=== PATIENT | male | born 1965 | race Hispanic/Latino ===

== ENCOUNTER 2016-11-02 18:56 | Emergency (ER) | payer OTHER ==
[2016-11-02] MEDS ORDERED: ONDANSETRON 4MG/2ML VIAL (J2405) As Ordered ONE (20:28)
[2016-11-02 20:31] LABS: VENOUS O2 SATURATION 65.8 % (60.0-80.0); VENOUS STANDARD HCO3 27.8 MEQ/L; VENOUS TOTAL CO2 32.5 MEQ/L (24.0-28.0)
[2016-11-02 20:33] LABS: BASO % 0.2 % (0.0-1.0); EOS # 0.2 K/mm3 (0.0-0.50); EOS % 2.2 % (0.0-3.0); LARGE UNSTAINED CELL # 0.1 K/mm3 (0.0-0.4); LARGE UNSTAINED CELL % 0.8 % (0.0-4.0); LYMPH # 0.6 K/mm3 (1.5-4.5); LYMPH % 5.9 % (24.0-44.0); MEAN CORPUSCULAR HEMOGLOBIN 31.6 pg (27.0-33.0); MEAN CORPUSCULAR HGB CONC 35.3 g/dl (32.0-36.5); MEAN CORPUSCULAR VOLUME 89.6 fl (80.0-96.0); MONO # 0.3 K/mm3 (0.0-0.8); MONO % 3.3 % (0.0-5.0); NEUTROPHILS # 8.5 K/mm3 (1.8-7.7); NEUTROPHILS % 87.5 % (36.0-66.0); PLATELET COUNT, AUTOMATED 135 k/mm3 (150-450); RED CELL DISTRIBUTION WIDTH 12.3 % (11.5-14.5); WHITE BLOOD COUNT 9.7 K/mm3 (4.0-10.0)
[2016-11-02 20:54] LABS: ALBUMIN 4.1 GM/DL (3.2-5.2); ALBUMIN/GLOBULIN RATIO 0.98 (1.00-1.93); BILIRUBIN,DIRECT 0.2 MG/DL (0.0-0.2); BILIRUBIN,TOTAL 0.7 MG/DL (0.2-1.0); CALCIUM LEVEL 9.9 MG/DL (8.5-10.1); CREATININE FOR GFR 1.53 MG/DL (0.70-1.30); GLOMERULAR FILTRATION RATE 51.5 (>56); POTASSIUM SERUM 4.4 MEQ/L (3.5-5.1); TOTAL PROTEIN 8.3 GM/DL (6.4-8.2)
[2016-11-02] MEDS ORDERED: HumuLIN R (REGULAR) INSULIN (NovoLIN R) **100U/ML** PER UNIT As Ordered ONE (21:55)
--- NOTE | 2016-11-02 22:23 | EDDOCDS ---
Physician Documentation [facility] Name: Tulio Villegas Age: 51 yrs Sex: Male : 1965 Arrival Date: 11/02/2016 Time: 18:56 Bed I2 / M2 Private MD: Fernando Min R. Disposition: 11/02/16 22:04 Discharged to Home/Self Care. Impression: Hyperglycemia, unspecified, Nausea and vomiting. - Condition is Stable. - Discharge Instructions: Hyperglycemia, Nausea and Vomiting, [id number]. - Prescriptions for Metformin 500 mg Oral Tablet - take 1 tablet by ORAL route once daily with morning and evening meals; 20 tablet. Lisinopril 20 mg Oral Tablet - take 1 tablet by ORAL route once daily; 20 tablet. Carvedilol 12.5 mg Oral Tablet - take 2 tablet by ORAL route 2 times per day with food; 45 tablet. ZOFRAN ODT 4 mg - dissolve 1 tablet by ORAL route 4 times per day As needed do not chew, do not swallow whole; 10 tablet. - Medication Reconciliation, Local Pharmacy Hours form. - Follow up: Fernando Min; When: Call to arrange an appointment; Reason: Continuance of care. - Problem is new. - Symptoms have improved. Historical: - Allergies: No known drug Allergies; - Home Meds: 1. metformin 500 mg Oral tr24 1 tab twice a day pt reports he ran out of his meds. (Last dose: Unknown) 2. carvedilol 25 mg oral tab 1 tab 2 times per day pt reports he ran out of his meds. (Last dose: Unknown) 3. lisinopril 20 mg oral tab 1 tab once daily pt reports he ran out of his meds. (Last dose: 11/01/2016) - PMHx: Diabetes - NIDDM: controlled; Hypercholesterolemia; Hypertension; - PSHx: none; - Social history: Smoking status: Patient states was never smoker of tobacco. Preferred Language: Pashto, The patient speaks a little Cymro. - Family history: Not pertinent. - : The pt / caregiver states he / she is not on anticoagulants. Home medication list is obtained from the patient. - Exposure Risk Screening:: None identified. Vital Signs: 11/02 18:58 BP 169 / 116; Pulse 114; Resp 18 S; Temp 98.4(O); Pulse Ox 97% on R/A; Weight 81.65 kg gr2 / 180.01 lbs (R); Height 5 ft. 8 in. (172.72 cm) (R); Pain 5/10; 19:35 BP 144 / 106 RA Sitting (man/reg); mb9 22:21 BP 135 / 99; Pulse 99; Resp 16; Temp 98.7; Pulse Ox 99% ; Pain 0/10; ko2 18:58 Body Mass Index 27.37 (81.65 kg, 172.72 cm) gr2 MDM: 19:28 Fingerstick Blood Sugar Ordered. EDMS 20:22 IV Saline Lock ordered. fg 20:22 Undress patient appropriately for examination ordered. fg 20:22 NS 0.9% 1000 ml IV at bolus once ordered. fg 20:22 Ondansetron 4 mg IVP once ordered. fg 20:22 Basic Metabolic Profile Ordered. EDMS 20:22 CBC with Diff Ordered. EDMS 20:22 Lipase Ordered. EDMS 20:22 Liver Profile Ordered. EDMS 20:23 NOTHING BY MOUTH+DIET ordered. EDMS 20:24 Venous Blood Gas (large pea green tube on ice) Ordered. EDMS 21:26 Insulin Regular Human 5 units IVP once ordered. fg 21:26 Misc. Nursing Order ordered. fg Point of Care Testing: Blood Glucose: 19:12 Blood Glucose: 306 mg/dL; mb9 Ranges: Administered Medications: 20:36 Drug: NS 0.9% 1000 ml [sodium chloride 0.9 % injection solution] Route: IV; Rate: dsf bolus; Site: right antecubital; 20:36 Drug: Ondansetron 4 mg [ondansetron HCl 2 mg/mL intravenous solution (2 mL)] Route: dsf IVP; Site: right antecubital; 22:02 Drug: Insulin Regular Human 5 units [insulin regular human 100 unit/mL injection ko2 solution (0.05 mL)] {Co-Signature: rw1 (Gerardo Morales LPN).} Route: IVP; Site: right antecubital; Signatures: Dispatcher [employer] EDMS Susana Bellamy RN RN ko2 Tez Villar RN RN mb9 Erika Ferrell MD MD fg Fuller, Desiree RN dsf Gerardo Morales LPN rwVinny The chart was reviewed and I authenticate all verbal orders and agree with the evaluation and treatment provided.Corrections: (The following items were deleted from the chart) 21:51 19:16 Home Meds: carvedilol 3.125 mg oral tab 1 tab 2 times per day; pt reports he ran ko2 out of his meds. (Last Dose: Unknown); mb9 21:51 19:16 Home Meds: lisinopril 40 mg Oral tab 1 tab once daily; pt reports he ran out of ko2 his meds. (Last Dose: 11/01/2016); mb9 MTDD
--- NOTE | 2016-11-02 22:23 | EDDOCDS ---
Nurse's Notes [facility] Name: Tulio Villegas Age: 51 yrs Sex: Male : 1965 Arrival Date: 11/02/2016 Time: 18:56 Bed I2 / M2 Private MD: Fernando Min R. Diagnosis: Hyperglycemia, unspecified;Nausea and vomiting Presentation: 11/02 19:12 Presenting complaint: Patient states: "I started throwing up and I got pain in my body mb9 and now I'm short of breath". pt reports he started throwing up since 1 pm today. Adult Sepsis Screening: The patient does not have new or worsening altered mentation. Patient's respiratory rate is less than 22. Systolic blood pressure is greater than 100. Patient has a qSOFA score of 0- Negative Sepsis Screen. Suicide/Homicide risk assessment- the patient denies having any suicidal and/or homicidal ideations and does not present with any other emotional, behavioral or mental health complaints. Status: Patient is not a protective services case worker or dependent. Transition of care: patient was not received from another setting of care. 19:12 Acuity: BILLY Level 3 mb9 19:12 Method Of Arrival: Walkin/Carried/Asstd mb9 Triage Assessment: 19:16 General: Appears uncomfortable, Behavior is restless. Pain:. HIV screening NA for this mb9 visit Offered previously. The patient is triaged at the bedside. See Assessment in Nurses Notes section of ED record. Respiratory: Airway is patent Respiratory effort is even, unlabored, Breath sounds are clear bilaterally. GI: Reports diarrhea, nausea, vomiting. Historical: - Allergies: No known drug Allergies; - Home Meds: 1. metformin 500 mg Oral tr24 1 tab twice a day pt reports he ran out of his meds. (Last dose: Unknown) 2. carvedilol 25 mg oral tab 1 tab 2 times per day pt reports he ran out of his meds. (Last dose: Unknown) 3. lisinopril 20 mg oral tab 1 tab once daily pt reports he ran out of his meds. (Last dose: 11/01/2016) - PMHx: Diabetes - NIDDM: controlled; Hypercholesterolemia; Hypertension; - PSHx: none; - Social history: Smoking status: Patient states was never smoker of tobacco. Preferred Language: Sri Lankan, The patient speaks a little Cape Verdean. - Family history: Not pertinent. - : The pt / caregiver states he / she is not on anticoagulants. Home medication list is obtained from the patient. - Exposure Risk Screening:: None identified. Screenin:15 Screening information is obtained from the patient. Fall risk: No risks identified. ko2 Assistance ADL's: requires no assistance with activities of daily living. Abuse/DV Screen: The patient / caregiver reports he/she is: not in a situation that causes fear, pain or injury. Nutritional screening: No deficits noted. Advance Directives: Currently, there is no health care proxy. There is no active DNR order. There is no living will. There is no Power of Gore Cutter. home support is adequate. Assessment: 20:25 General: Appears ill, Behavior is appropriate for age, cooperative. Pain: Location: dsf abdomen. Neurological: Level of Consciousness is awake, alert. Cardiovascular: Capillary refill < 3 seconds. Respiratory: Airway is patent Respiratory effort is even, unlabored, Respiratory pattern is regular, symmetrical. GI: Abdomen is non- distended Reports nausea, vomiting. Derm: Skin is dry, Skin is normal, Skin temperature is warm. 21:14 General: Appears in no apparent distress, Behavior is cooperative. Pain: Location: ko2 abdomen. Neurological: Level of Consciousness is awake, alert. Respiratory: Airway is patent Respiratory effort is even, unlabored, Respiratory pattern is regular, symmetrical. Derm: No deficits noted. 22:02 General: Appears in no apparent distress, Behavior is appropriate for age, cooperative. ko2 Neurological: Level of Consciousness is awake, alert. Respiratory: Airway is patent Respiratory effort is even, unlabored, Respiratory pattern is regular, symmetrical, Sputum is. Derm: Skin is normal. 22:21 GI: Abd is soft and non tender. ko2 Vital Signs: 18:58 BP 169 / 116; Pulse 114; Resp 18 S; Temp 98.4(O); Pulse Ox 97% on R/A; Weight 81.65 kg gr2 (R); Height 5 ft. 8 in. (172.72 cm) (R); Pain 5/10; 19:35 BP 144 / 106 RA Sitting (man/reg); mb9 22:21 BP 135 / 99; Pulse 99; Resp 16; Temp 98.7; Pulse Ox 99% ; Pain 0/10; ko2 18:58 Body Mass Index 27.37 (81.65 kg, 172.72 cm) gr2 Vitals: 18:58 Log In Time: November 02, 2016 at 18:58. gr2 ED Course: 18:57 Patient visited by Darrius Tay. gr2 18:57 Patient moved to Waiting gr2 18:58 Fernando Min is Private Physician. gr2 19:00 Patient visited by Darrius Tay. gr2 19:00 Patient moved to Pre RCE gr2 19:14 Triage Initiated mb9 19:35 Patient moved to I2 / M2 mb9 20:04 Erika Ferrell MD is Attending Physician. fg 20:21 Patient visited by Erika Ferrell MD. fg 20:23 Basic Metabolic Profile Sent. dsf 20:23 CBC with Diff Sent. dsf 20:23 Lipase Sent. dsf 20:23 Liver Profile Sent. dsf 20:26 Patient visited by Yi Jasmine RN. dsf 20:26 Inserted saline lock: 18 gauge in right antecubital area The patient tolerated the dsf procedure well. 21:15 Patient visited by Susana Bellamy,DHARA. ko2 21:15 The patient / caregiver is instructed regarding the plan of care and ED course. ko2 21:36 Diet: Patient given water. Tolerated well. ajs 22:03 Fernando Min is Referral Physician. fg 22:21 Discontinued lock intact, bleeding controlled, pressure dressing applied, No ko2 redness/swelling at site. No procedures done that require assistance. Administered Medications: 20:36 Drug: NS 0.9% 1000 ml [sodium chloride 0.9 % injection solution] Route: IV; Rate: dsf bolus; Site: right antecubital; 20:36 Drug: Ondansetron 4 mg [ondansetron HCl 2 mg/mL intravenous solution (2 mL)] Route: dsf IVP; Site: right antecubital; 22:02 Drug: Insulin Regular Human 5 units [insulin regular human 100 unit/mL injection ko2 solution (0.05 mL)] {Co-Signature: rw1 (Gerardo Morales LPN).} Route: IVP; Site: right antecubital; Point of Care Testing: Blood Glucose: 19:12 Blood Glucose: 306 mg/dL; mb9 Ranges: Order Results: Lab Order: Fingerstick Blood Sugar; [facility]' 11/02/16 19:19 Test: BEDSIDE GLUCOSE; Value: 306; Range: 70-105; Abnormal: Above high normal; Units: MG/DL; Status: F Lab Order: Basic Metabolic Profile; [facility]' 11/02/16 20:21 Test: GLUCOSE, FASTING; Value: 310; Range: 70-105; Abnormal: Above high normal; Units: MG/DL; Status: F Test: BLOOD UREA NITROGEN; Value: 16; Range: 7-18; Units: MG/DL; Status: F Test: CREATININE FOR GFR; Value: 1.53; Range: 0.70-1.30; Abnormal: Above high normal; Units: MG/DL; Status: F Test: GLOMERULAR FILTRATION RATE; Value: 51.5; Range: >56; Abnormal: Below low normal; Status: F Test: SODIUM LEVEL; Value: 140; Range: 136-145; Units: MEQ/L; Status: F Test: POTASSIUM SERUM; Value: 4.4; Range: 3.5-5.1; Units: MEQ/L; Status: F Test: CHLORIDE LEVEL; Value: 101; Range: 98-107; Units: MEQ/L; Status: F Test: CARBON DIOXIDE LEVEL; Value: 28; Range: 21-32; Units: MEQ/L; Status: F Test: ANION GAP; Value: 11; Range: 8-16; Units: MEQ/L; Status: F Test: CALCIUM LEVEL; Value: 9.9; Range: 8.5-10.1; Units: MG/DL; Status: F Test Note: ; Units are mL/min/1.73 m2 Chronic Kidney Disease Staging per NKF: Stage I & II GFR >=60 Normal to Mildly Decreased Stage III GFR 30-59 Moderately Decreased Stage IV GFR 15-29 Severely Decreased Stage V GFR <15 Very Little GFR Left ESRD GFR <15 on POCKET STITCHER Lab Order: CBC with Diff; [facility] 11/02/16 20:21 Test: WHITE BLOOD COUNT; Value: 9.7; Range: 4.0-10.0; Units: K/mm3; Status: F Test: RED BLOOD COUNT; Value: 5.92; Range: 4.30-6.10; Units: M/mm3; Status: F Test: HEMOGLOBIN; Value: 18.7; Range: 14.0-18.0; Abnormal: Above high normal; Units: g/dl; Status: F Test: HEMATOCRIT; Value: 53.1; Range: 42.0-52.0; Abnormal: Above high normal; Units: %; Status: F Test: MEAN CORPUSCULAR VOLUME; Value: 89.6; Range: 80.0-96.0; Units: fl; Status: F Test: MEAN CORPUSCULAR HEMOGLOBIN; Value: 31.6; Range: 27.0-33.0; Units: pg; Status: F Test: MEAN CORPUSCULAR HGB CONC; Value: 35.3; Range: 32.0-36.5; Units: g/dl; Status: F Test: RED CELL DISTRIBUTION WIDTH; Value: 12.3; Range: 11.5-14.5; Units: %; Status: F Test: PLATELET COUNT, AUTOMATED; Value: 135; Range: 150-450; Abnormal: Below low normal; Units: k/mm3; Status: F Test: NEUTROPHILS %; Value: 87.5; Range: 36.0-66.0; Abnormal: Above high normal; Units: %; Status: F Test: LYMPH %; Value: 5.9; Range: 24.0-44.0; Abnormal: Below low normal; Units: %; Status: F Test: MONO %; Value: 3.3; Range: 0.0-5.0; Units: %; Status: F Test: EOS %; Value: 2.2; Range: 0.0-3.0; Units: %; Status: F Test: BASO %; Value: 0.2; Range: 0.0-1.0; Units: %; Status: F Test: LARGE UNSTAINED CELL %; Value: 0.8; Range: 0.0-4.0; Units: %; Status: F Test: NEUTROPHILS #; Value: 8.5; Range: 1.8-7.7; Abnormal: Above high normal; Units: K/mm3; Status: F Test: LYMPH #; Value: 0.6; Range: 1.5-4.5; Abnormal: Below low normal; Units: K/mm3; Status: F Test: MONO #; Value: 0.3; Range: 0.0-0.8; Units: K/mm3; Status: F Test: EOS #; Value: 0.2; Range: 0.0-0.50; Units: K/mm3; Status: F Test: BASO #; Value: 0.0; Range: 0.0-0.2; Units: K/mm3; Status: F Test: LARGE UNSTAINED CELL #; Value: 0.1; Range: 0.0-0.4; Units: K/mm3; Status: F Lab Order: Lipase; [facility] 11/02/16 20: Test: LIPASE; Value: 524; Range: 73-393; Abnormal: Above high normal; Units: U/L; Status: F Lab Order: Liver Profile; [facility] 11/02/16 20: Test: AST/SGOT; Value: 107; Range: 15-37; Abnormal: Above high normal; Units: U/L; Status: F Test: ALT/SGPT; Value: 98; Range: 12-78; Abnormal: Above high normal; Units: U/L; Status: F Test: ALKALINE PHOSPHATASE; Value: 239; Range: 45-117; Abnormal: Above high normal; Units: U/L; Status: F Test: BILIRUBIN,TOTAL; Value: 0.7; Range: 0.2-1.0; Units: MG/DL; Status: F Test: BILIRUBIN,DIRECT; Value: 0.2; Range: 0.0-0.2; Units: MG/DL; Status: F Test: TOTAL PROTEIN; Value: 8.3; Range: 6.4-8.2; Abnormal: Above high normal; Units: GM/DL; Status: F Test: ALBUMIN; Value: 4.1; Range: 3.2-5.2; Units: GM/DL; Status: F Test: ALBUMIN/GLOBULIN RATIO; Value: 0.98; Range: 1.00-1.93; Abnormal: Below low normal; Status: F Lab Order: Venous Blood Gas (large pea green tube on ice); [facility] 11/02/16 20: Test: VENOUS PH; Value: 7.419; Range: 7.330-7.430; Units: UNITS; Status: F Test: VENOUS PARTIAL PRESSURE CO2; Value: 49.0; Range: 38.0-50.0; Units: mmHg; Status: F Test: VENOUS PARTIAL PRESSURE O2; Value: 33.0; Range: 30.0-50.0; Units: mmHg; Status: F Test: VENOUS TOTAL CO2; Value: 32.5; Range: 24.0-28.0; Abnormal: Above high normal; Units: MEQ/L; Status: F Test: VENOUS HCO3; Value: 31.0; Range: 23.0-27.0; Abnormal: Above high normal; Units: MEQ/L; Status: F Test: VENOUS BASE EXCESS; Value: 5.0; Range: -2.0-2.0; Abnormal: Above high normal; Status: F Test: VENOUS STANDARD HCO3; Value: 27.8; Units: MEQ/L; Status: F Test: VENOUS O2 SATURATION; Value: 65.8; Range: 60.0-80.0; Units: %; Status: F Outcome: 22:04 Discharge ordered by Provider. fg 22:21 Discharge Assessment: Patient awake, alert and oriented x 3. No cognitive and/or ko2 functional deficits noted. Patient verbalized understanding of disposition instructions. patient administered narcotics - no. The following High Risk Discharge criteria are identified: None. Discharged to home ambulatory, with family. Condition: stable. Discharge instructions given to patient, Instructed on discharge instructions, follow up and referral plans. medication usage, Demonstrated understanding of instructions, medications, Pt was receptive of discharge instructions/ teaching. Prescriptions given X 4. No special radiology studies were completed. Property :Personal belongings accompany Pt. 22:22 Patient left the ED. ko2 Signatures: Yi Jasmine RN RN dsf Slate, Amanda ajs Raymond, [place] 2 Susana Bellamy RN RN ko2 Tez Villar RN RN yara9 Erika Ferrell MD MD fg Gerardo Morales LPN rw1 Corrections: (The following items were deleted from the chart) 21:51 19:16 Home Meds: carvedilol 3.125 mg oral tab 1 tab 2 times per day; pt reports he ran ko2 out of his meds. (Last Dose: Unknown); vicente 21:51 19:16 Home Meds: lisinopril 40 mg Oral tab 1 tab once daily; pt reports he ran out of ko2 his meds. (Last Dose: 11/01/2016); vicente MTDD
--- NOTE | 2016-11-04 23:23 | EDDOCDS ---
Physician Documentation [facility] Name: Tulio Villegas Age: 51 yrs Sex: Male : 1965 Arrival Date: 11/02/2016 Time: 18:56 Bed I2 / M2 Private MD: Fernando Min R. Disposition: 11/02/16 22:04 Discharged to Home/Self Care. Impression: Hyperglycemia, unspecified, Nausea and vomiting. - Condition is Stable. - Discharge Instructions: Hyperglycemia, Nausea and Vomiting, [id number]. - Prescriptions for Metformin 500 mg Oral Tablet - take 1 tablet by ORAL route once daily with morning and evening meals; 20 tablet. Lisinopril 20 mg Oral Tablet - take 1 tablet by ORAL route once daily; 20 tablet. Carvedilol 12.5 mg Oral Tablet - take 2 tablet by ORAL route 2 times per day with food; 45 tablet. ZOFRAN ODT 4 mg - dissolve 1 tablet by ORAL route 4 times per day As needed do not chew, do not swallow whole; 10 tablet. - Medication Reconciliation, Local Pharmacy Hours form. - Follow up: Fernando Min; When: Call to arrange an appointment; Reason: Continuance of care. - Problem is new. - Symptoms have improved. Historical: - Allergies: No known drug Allergies; - Home Meds: 1. metformin 500 mg Oral tr24 1 tab twice a day pt reports he ran out of his meds. (Last dose: Unknown) 2. carvedilol 25 mg oral tab 1 tab 2 times per day pt reports he ran out of his meds. (Last dose: Unknown) 3. lisinopril 20 mg oral tab 1 tab once daily pt reports he ran out of his meds. (Last dose: 11/01/2016) - PMHx: Diabetes - NIDDM: controlled; Hypercholesterolemia; Hypertension; - PSHx: none; - Social history: Smoking status: Patient states was never smoker of tobacco. Preferred Language: Greenlandic, The patient speaks a little Kuwaiti. - Family history: Not pertinent. - : The pt / caregiver states he / she is not on anticoagulants. Home medication list is obtained from the patient. - Exposure Risk Screening:: None identified. Vital Signs: 11/02 18:58 BP 169 / 116; Pulse 114; Resp 18 S; Temp 98.4(O); Pulse Ox 97% on R/A; Weight 81.65 kg gr2 / 180.01 lbs (R); Height 5 ft. 8 in. (172.72 cm) (R); Pain 5/10; 19:35 BP 144 / 106 RA Sitting (man/reg); mb9 22:21 BP 135 / 99; Pulse 99; Resp 16; Temp 98.7; Pulse Ox 99% ; Pain 0/10; ko2 18:58 Body Mass Index 27.37 (81.65 kg, 172.72 cm) gr2 MDM: 19:28 Fingerstick Blood Sugar Ordered. EDMS 20:22 IV Saline Lock ordered. fg 20:22 Undress patient appropriately for examination ordered. fg 20:22 NS 0.9% 1000 ml IV at bolus once ordered. fg 20:22 Ondansetron 4 mg IVP once ordered. fg 20:22 Basic Metabolic Profile Ordered. EDMS 20:22 CBC with Diff Ordered. EDMS 20:22 Lipase Ordered. EDMS 20:22 Liver Profile Ordered. EDMS 20:23 NOTHING BY MOUTH+DIET ordered. EDMS 20:24 Venous Blood Gas (large pea green tube on ice) Ordered. EDMS 21:26 Insulin Regular Human 5 units IVP once ordered. fg 21:26 Misc. Nursing Order ordered. fg 11/03 11:22 T-Sheet-- Draft Copy was scanned into [employer] and attached to record. Point of Care Testing: Blood Glucose: 11/02 19:12 Blood Glucose: 306 mg/dL; mb9 Ranges: Administered Medications: 20:36 Drug: NS 0.9% 1000 ml [sodium chloride 0.9 % injection solution] Route: IV; Rate: dsf bolus; Site: right antecubital; 20:36 Drug: Ondansetron 4 mg [ondansetron HCl 2 mg/mL intravenous solution (2 mL)] Route: dsf IVP; Site: right antecubital; 22:02 Drug: Insulin Regular Human 5 units [insulin regular human 100 unit/mL injection ko2 solution (0.05 mL)] {Co-Signature: rw1 (Gerardo Morales [employer]).} Route: IVP; Site: right antecubital; Signatures: Dispatcher [employer] EDMS Michelle Rocha, Reg Reg Susana Bellamy RN RN ko2 Tez Villar RN RN mb9 Erika Ferrell MD MD fg Fuller, Desiree RN dsf Gerardo Morales LPN rw1 The chart was reviewed and I authenticate all verbal orders and agree with the evaluation and treatment provided.Corrections: (The following items were deleted from the chart) 21:51 19:16 Home Meds: carvedilol 3.125 mg oral tab 1 tab 2 times per day; pt reports he ran ko2 out of his meds. (Last Dose: Unknown); mb9 21:51 19:16 Home Meds: lisinopril 40 mg Oral tab 1 tab once daily; pt reports he ran out of ko2 his meds. (Last Dose: 11/01/2016); mb9 Attachments: 11/03 11:22 T-Sheet-- Draft Copy gb Chart Complete MTDD
--- NOTE | 2016-11-04 23:23 | EDDOCDS ---
Nurse's Notes [facility] Name: Tulio Villegas Age: 51 yrs Sex: Male : 1965 Arrival Date: 11/02/2016 Time: 18:56 Bed I2 / M2 Private MD: Fernando Min R. Diagnosis: Hyperglycemia, unspecified;Nausea and vomiting Presentation: 11/02 19:12 Presenting complaint: Patient states: "I started throwing up and I got pain in my body mb9 and now I'm short of breath". pt reports he started throwing up since 1 pm today. Adult Sepsis Screening: The patient does not have new or worsening altered mentation. Patient's respiratory rate is less than 22. Systolic blood pressure is greater than 100. Patient has a qSOFA score of 0- Negative Sepsis Screen. Suicide/Homicide risk assessment- the patient denies having any suicidal and/or homicidal ideations and does not present with any other emotional, behavioral or mental health complaints. Status: Patient is not a support services coordinator or dependent. Transition of care: patient was not received from another setting of care. 19:12 Acuity: BILLY Level 3 mb9 19:12 Method Of Arrival: Walkin/Carried/Asstd mb9 Triage Assessment: 19:16 General: Appears uncomfortable, Behavior is restless. Pain:. HIV screening NA for this mb9 visit Offered previously. The patient is triaged at the bedside. See Assessment in Nurses Notes section of ED record. Respiratory: Airway is patent Respiratory effort is even, unlabored, Breath sounds are clear bilaterally. GI: Reports diarrhea, nausea, vomiting. Historical: - Allergies: No known drug Allergies; - Home Meds: 1. metformin 500 mg Oral tr24 1 tab twice a day pt reports he ran out of his meds. (Last dose: Unknown) 2. carvedilol 25 mg oral tab 1 tab 2 times per day pt reports he ran out of his meds. (Last dose: Unknown) 3. lisinopril 20 mg oral tab 1 tab once daily pt reports he ran out of his meds. (Last dose: 11/01/2016) - PMHx: Diabetes - NIDDM: controlled; Hypercholesterolemia; Hypertension; - PSHx: none; - Social history: Smoking status: Patient states was never smoker of tobacco. Preferred Language: Norwegian, The patient speaks a little Puerto Rican. - Family history: Not pertinent. - : The pt / caregiver states he / she is not on anticoagulants. Home medication list is obtained from the patient. - Exposure Risk Screening:: None identified. Screenin:15 Screening information is obtained from the patient. Fall risk: No risks identified. ko2 Assistance ADL's: requires no assistance with activities of daily living. Abuse/DV Screen: The patient / caregiver reports he/she is: not in a situation that causes fear, pain or injury. Nutritional screening: No deficits noted. Advance Directives: Currently, there is no health care proxy. There is no active DNR order. There is no living will. There is no Power of Job Counselor. home support is adequate. Assessment: 20:25 General: Appears ill, Behavior is appropriate for age, cooperative. Pain: Location: dsf abdomen. Neurological: Level of Consciousness is awake, alert. Cardiovascular: Capillary refill < 3 seconds. Respiratory: Airway is patent Respiratory effort is even, unlabored, Respiratory pattern is regular, symmetrical. GI: Abdomen is non- distended Reports nausea, vomiting. Derm: Skin is dry, Skin is normal, Skin temperature is warm. 21:14 General: Appears in no apparent distress, Behavior is cooperative. Pain: Location: ko2 abdomen. Neurological: Level of Consciousness is awake, alert. Respiratory: Airway is patent Respiratory effort is even, unlabored, Respiratory pattern is regular, symmetrical. Derm: No deficits noted. 22:02 General: Appears in no apparent distress, Behavior is appropriate for age, cooperative. ko2 Neurological: Level of Consciousness is awake, alert. Respiratory: Airway is patent Respiratory effort is even, unlabored, Respiratory pattern is regular, symmetrical, Sputum is. Derm: Skin is normal. 22:21 GI: Abd is soft and non tender. ko2 Vital Signs: 18:58 BP 169 / 116; Pulse 114; Resp 18 S; Temp 98.4(O); Pulse Ox 97% on R/A; Weight 81.65 kg gr2 (R); Height 5 ft. 8 in. (172.72 cm) (R); Pain 5/10; 19:35 BP 144 / 106 RA Sitting (man/reg); mb9 22:21 BP 135 / 99; Pulse 99; Resp 16; Temp 98.7; Pulse Ox 99% ; Pain 0/10; ko2 18:58 Body Mass Index 27.37 (81.65 kg, 172.72 cm) gr2 Vitals: 18:58 Log In Time: November 02, 2016 at 18:58. gr2 ED Course: 18:57 Patient visited by Darrius Tay. gr2 18:57 Patient moved to Waiting gr2 18:58 Fernando Min is Private Physician. gr2 19:00 Patient visited by Darrius Tay. gr2 19:00 Patient moved to Pre RCE gr2 19:14 Triage Initiated mb9 19:35 Patient moved to I2 / M2 mb9 20:04 Erika Ferrell MD is Attending Physician. fg 20:21 Patient visited by Erika Ferrell MD. fg 20:23 Basic Metabolic Profile Sent. dsf 20:23 CBC with Diff Sent. dsf 20:23 Lipase Sent. dsf 20:23 Liver Profile Sent. dsf 20:26 Patient visited by Yi Jasmine RN. dsf 20:26 Inserted saline lock: 18 gauge in right antecubital area The patient tolerated the dsf procedure well. 21:15 Patient visited by Susana Bellamy,DHARA. ko2 21:15 The patient / caregiver is instructed regarding the plan of care and ED course. ko2 21:36 Diet: Patient given water. Tolerated well. ajs 22:03 Fernando Min is Referral Physician. fg 22:21 Discontinued lock intact, bleeding controlled, pressure dressing applied, No ko2 redness/swelling at site. No procedures done that require assistance. 11/03 11:22 T-Sheet-- Draft Copy was scanned into [employer] and attached to record. gb Administered Medications: 11/02 20:36 Drug: NS 0.9% 1000 ml [sodium chloride 0.9 % injection solution] Route: IV; Rate: dsf bolus; Site: right antecubital; 20:36 Drug: Ondansetron 4 mg [ondansetron HCl 2 mg/mL intravenous solution (2 mL)] Route: dsf IVP; Site: right antecubital; 22:02 Drug: Insulin Regular Human 5 units [insulin regular human 100 unit/mL injection ko2 solution (0.05 mL)] {Co-Signature: rw1 (Gerardo Morales LPN).} Route: IVP; Site: right antecubital; Point of Care Testing: Blood Glucose: 19:12 Blood Glucose: 306 mg/dL; mb9 Ranges: Order Results: Lab Order: Fingerstick Blood Sugar; SPECM 11/02/16 19:19 Test: BEDSIDE GLUCOSE; Value: 306; Range: 70-105; Abnormal: Above high normal; Units: MG/DL; Status: F Lab Order: Basic Metabolic Profile; SPEC'11/02/16 20:21 Test: GLUCOSE, FASTING; Value: 310; Range: 70-105; Abnormal: Above high normal; Units: MG/DL; Status: F Test: BLOOD UREA NITROGEN; Value: 16; Range: 7-18; Units: MG/DL; Status: F Test: CREATININE FOR GFR; Value: 1.53; Range: 0.70-1.30; Abnormal: Above high normal; Units: MG/DL; Status: F Test: GLOMERULAR FILTRATION RATE; Value: 51.5; Range: >56; Abnormal: Below low normal; Status: F Test: SODIUM LEVEL; Value: 140; Range: 136-145; Units: MEQ/L; Status: F Test: POTASSIUM SERUM; Value: 4.4; Range: 3.5-5.1; Units: MEQ/L; Status: F Test: CHLORIDE LEVEL; Value: 101; Range: 98-107; Units: MEQ/L; Status: F Test: CARBON DIOXIDE LEVEL; Value: 28; Range: 21-32; Units: MEQ/L; Status: F Test: ANION GAP; Value: 11; Range: 8-16; Units: MEQ/L; Status: F Test: CALCIUM LEVEL; Value: 9.9; Range: 8.5-10.1; Units: MG/DL; Status: F Test Note: ; Units are mL/min/1.73 m2 Chronic Kidney Disease Staging per NKF: Stage I & II GFR >=60 Normal to Mildly Decreased Stage III GFR 30-59 Moderately Decreased Stage IV GFR 15-29 Severely Decreased Stage V GFR <15 Very Little GFR Left ESRD GFR <[address] AIDE Lab Order: CBC with Diff; SPEC'M 11/02/16 20:21 Test: WHITE BLOOD COUNT; Value: 9.7; Range: 4.0-10.0; Units: K/mm3; Status: F Test: RED BLOOD COUNT; Value: 5.92; Range: 4.30-6.10; Units: M/mm3; Status: F Test: HEMOGLOBIN; Value: 18.7; Range: 14.0-18.0; Abnormal: Above high normal; Units: g/dl; Status: F Test: HEMATOCRIT; Value: 53.1; Range: 42.0-52.0; Abnormal: Above high normal; Units: %; Status: F Test: MEAN CORPUSCULAR VOLUME; Value: 89.6; Range: 80.0-96.0; Units: fl; Status: F Test: MEAN CORPUSCULAR HEMOGLOBIN; Value: 31.6; Range: 27.0-33.0; Units: pg; Status: F Test: MEAN CORPUSCULAR HGB CONC; Value: 35.3; Range: 32.0-36.5; Units: g/dl; Status: F Test: RED CELL DISTRIBUTION WIDTH; Value: 12.3; Range: 11.5-14.5; Units: %; Status: F Test: PLATELET COUNT, AUTOMATED; Value: 135; Range: 150-450; Abnormal: Below low normal; Units: k/mm3; Status: F Test: NEUTROPHILS %; Value: 87.5; Range: 36.0-66.0; Abnormal: Above high normal; Units: %; Status: F Test: LYMPH %; Value: 5.9; Range: 24.0-44.0; Abnormal: Below low normal; Units: %; Status: F Test: MONO %; Value: 3.3; Range: 0.0-5.0; Units: %; Status: F Test: EOS %; Value: 2.2; Range: 0.0-3.0; Units: %; Status: F Test: BASO %; Value: 0.2; Range: 0.0-1.0; Units: %; Status: F Test: LARGE UNSTAINED CELL %; Value: 0.8; Range: 0.0-4.0; Units: %; Status: F Test: NEUTROPHILS #; Value: 8.5; Range: 1.8-7.7; Abnormal: Above high normal; Units: K/mm3; Status: F Test: LYMPH #; Value: 0.6; Range: 1.5-4.5; Abnormal: Below low normal; Units: K/mm3; Status: F Test: MONO #; Value: 0.3; Range: 0.0-0.8; Units: K/mm3; Status: F Test: EOS #; Value: 0.2; Range: 0.0-0.50; Units: K/mm3; Status: F Test: BASO #; Value: 0.0; Range: 0.0-0.2; Units: K/mm3; Status: F Test: LARGE UNSTAINED CELL #; Value: 0.1; Range: 0.0-0.4; Units: K/mm3; Status: F Lab Order: Lipase; [facility] 11/02/16 20:21 Test: LIPASE; Value: 524; Range: 73-393; Abnormal: Above high normal; Units: U/L; Status: F Lab Order: Liver Profile; [facility] 11/02/16 20:21 Test: AST/SGOT; Value: 107; Range: 15-37; Abnormal: Above high normal; Units: U/L; Status: F Test: ALT/SGPT; Value: 98; Range: 12-78; Abnormal: Above high normal; Units: U/L; Status: F Test: ALKALINE PHOSPHATASE; Value: 239; Range: 45-117; Abnormal: Above high normal; Units: U/L; Status: F Test: BILIRUBIN,TOTAL; Value: 0.7; Range: 0.2-1.0; Units: MG/DL; Status: F Test: BILIRUBIN,DIRECT; Value: 0.2; Range: 0.0-0.2; Units: MG/DL; Status: F Test: TOTAL PROTEIN; Value: 8.3; Range: 6.4-8.2; Abnormal: Above high normal; Units: GM/DL; Status: F Test: ALBUMIN; Value: 4.1; Range: 3.2-5.2; Units: GM/DL; Status: F Test: ALBUMIN/GLOBULIN RATIO; Value: 0.98; Range: 1.00-1.93; Abnormal: Below low normal; Status: F Lab Order: Venous Blood Gas (large pea green tube on ice); [facility] 11/02/16 20:21 Test: VENOUS PH; Value: 7.419; Range: 7.330-7.430; Units: UNITS; Status: F Test: VENOUS PARTIAL PRESSURE CO2; Value: 49.0; Range: 38.0-50.0; Units: mmHg; Status: F Test: VENOUS PARTIAL PRESSURE O2; Value: 33.0; Range: 30.0-50.0; Units: mmHg; Status: F Test: VENOUS TOTAL CO2; Value: 32.5; Range: 24.0-28.0; Abnormal: Above high normal; Units: MEQ/L; Status: F Test: VENOUS HCO3; Value: 31.0; Range: 23.0-27.0; Abnormal: Above high normal; Units: MEQ/L; Status: F Test: VENOUS BASE EXCESS; Value: 5.0; Range: -2.0-2.0; Abnormal: Above high normal; Status: F Test: VENOUS STANDARD HCO3; Value: 27.8; Units: MEQ/L; Status: F Test: VENOUS O2 SATURATION; Value: 65.8; Range: 60.0-80.0; Units: %; Status: F Outcome: 22:04 Discharge ordered by Provider. fg 22:21 Discharge Assessment: Patient awake, alert and oriented x 3. No cognitive and/or ko2 functional deficits noted. Patient verbalized understanding of disposition instructions. patient administered narcotics - no. The following High Risk Discharge criteria are identified: None. Discharged to home ambulatory, with family. Condition: stable. Discharge instructions given to patient, Instructed on discharge instructions, follow up and referral plans. medication usage, Demonstrated understanding of instructions, medications, Pt was receptive of discharge instructions/ teaching. Prescriptions given X 4. No special radiology studies were completed. Property :Personal belongings accompany Pt. 22:22 Patient left the ED. ko2 Signatures: Michelle Rocha, Reg Reg Yi Win,RN RN dsf Jillian Sams Gainslee gr2 Susana Bellamy RN RN ko2 Tez Villar RN RN [id number] Erika Ferrell MD MD Gerardo Morales LPN rw1 Corrections: (The following items were deleted from the chart) 21:51 19:16 Home Meds: carvedilol 3.125 mg oral tab 1 tab 2 times per day; pt reports he ran ko2 out of his meds. (Last Dose: Unknown); vicente 21:51 19:16 Home Meds: lisinopril 40 mg Oral tab 1 tab once daily; pt reports he ran out of ko2 his meds. (Last Dose: 11/01/2016); mb9 Chart Complete MTDD
--- NOTE | 2016-11-04 23:23 | EDDOCDS ---
Physician Documentation [facility] Name: Tulio Villegas Age: 51 yrs Sex: Male : 1965 Arrival Date: 11/02/2016 Time: 18:56 Bed I2 / M2 Private MD: Fernando Min R. Disposition: 11/02/16 22:04 Discharged to Home/Self Care. Impression: Hyperglycemia, unspecified, Nausea and vomiting. - Condition is Stable. - Discharge Instructions: Hyperglycemia, Nausea and Vomiting, [id number]. - Prescriptions for Metformin 500 mg Oral Tablet - take 1 tablet by ORAL route once daily with morning and evening meals; 20 tablet. Lisinopril 20 mg Oral Tablet - take 1 tablet by ORAL route once daily; 20 tablet. Carvedilol 12.5 mg Oral Tablet - take 2 tablet by ORAL route 2 times per day with food; 45 tablet. ZOFRAN ODT 4 mg - dissolve 1 tablet by ORAL route 4 times per day As needed do not chew, do not swallow whole; 10 tablet. - Medication Reconciliation, Local Pharmacy Hours form. - Follow up: Fernando Min; When: Call to arrange an appointment; Reason: Continuance of care. - Problem is new. - Symptoms have improved. Historical: - Allergies: No known drug Allergies; - Home Meds: 1. metformin 500 mg Oral tr24 1 tab twice a day pt reports he ran out of his meds. (Last dose: Unknown) 2. carvedilol 25 mg oral tab 1 tab 2 times per day pt reports he ran out of his meds. (Last dose: Unknown) 3. lisinopril 20 mg oral tab 1 tab once daily pt reports he ran out of his meds. (Last dose: 11/01/2016) - PMHx: Diabetes - NIDDM: controlled; Hypercholesterolemia; Hypertension; - PSHx: none; - Social history: Smoking status: Patient states was never smoker of tobacco. Preferred Language: Slovenian, The patient speaks a little Northern Irish. - Family history: Not pertinent. - : The pt / caregiver states he / she is not on anticoagulants. Home medication list is obtained from the patient. - Exposure Risk Screening:: None identified. Vital Signs: 11/02 18:58 BP 169 / 116; Pulse 114; Resp 18 S; Temp 98.4(O); Pulse Ox 97% on R/A; Weight 81.65 kg gr2 / 180.01 lbs (R); Height 5 ft. 8 in. (172.72 cm) (R); Pain 5/10; 19:35 BP 144 / 106 RA Sitting (man/reg); mb9 22:21 BP 135 / 99; Pulse 99; Resp 16; Temp 98.7; Pulse Ox 99% ; Pain 0/10; ko2 18:58 Body Mass Index 27.37 (81.65 kg, 172.72 cm) gr2 MDM: 19:28 Fingerstick Blood Sugar Ordered. EDMS 20:22 IV Saline Lock ordered. fg 20:22 Undress patient appropriately for examination ordered. fg 20:22 NS 0.9% 1000 ml IV at bolus once ordered. fg 20:22 Ondansetron 4 mg IVP once ordered. fg 20:22 Basic Metabolic Profile Ordered. EDMS 20:22 CBC with Diff Ordered. EDMS 20:22 Lipase Ordered. EDMS 20:22 Liver Profile Ordered. EDMS 20:23 NOTHING BY MOUTH+DIET ordered. EDMS 20:24 Venous Blood Gas (large pea green tube on ice) Ordered. EDMS 21:26 Insulin Regular Human 5 units IVP once ordered. fg 21:26 Misc. Nursing Order ordered. fg 11/03 11:22 T-Sheet-- Draft Copy was scanned into [employer] and attached to record. Point of Care Testing: Blood Glucose: 11/02 19:12 Blood Glucose: 306 mg/dL; mb9 Ranges: Administered Medications: 20:36 Drug: NS 0.9% 1000 ml [sodium chloride 0.9 % injection solution] Route: IV; Rate: dsf bolus; Site: right antecubital; 20:36 Drug: Ondansetron 4 mg [ondansetron HCl 2 mg/mL intravenous solution (2 mL)] Route: dsf IVP; Site: right antecubital; 22:02 Drug: Insulin Regular Human 5 units [insulin regular human 100 unit/mL injection ko2 solution (0.05 mL)] {Co-Signature: rw1 (Gerardo Morales [employer] INSPE[employer] MECH[employer]IC).} Route: IVP; Site: right antecubital; Signatures: Dispatcher [employer] EDMS Michelle Rocha, Reg Reg Susana Bellamy RN RN ko2 Tez Villar RN RN mb9 Erika Ferrell MD MD fg Fuller, Desiree RN dsf Gerardo Morales LPN rw1 The chart was reviewed and I authenticate all verbal orders and agree with the evaluation and treatment provided.Corrections: (The following items were deleted from the chart) 21:51 19:16 Home Meds: carvedilol 3.125 mg oral tab 1 tab 2 times per day; pt reports he ran ko2 out of his meds. (Last Dose: Unknown); mb9 21:51 19:16 Home Meds: lisinopril 40 mg Oral tab 1 tab once daily; pt reports he ran out of ko2 his meds. (Last Dose: 11/01/2016); mb9 Attachments: 11/03 11:22 T-Sheet-- Draft Copy gb Chart Complete MTDD
== END 2016-11-02 22:22 | disposition home or self-care (01) ==
LOC: M ED 18:56
DX: E11.65 Type 2 diabetes mellitus with hyperglycemia (principal); R74.8 Abnormal levels of other serum enzymes; R11.2 Nausea with vomiting, unspecified; I10 Essential (primary) hypertension; E78.00 Pure hypercholesterolemia, unspecified; M10.9 Gout, unspecified; B19.20 Unspecified viral hepatitis C without hepatic coma; Z79.899 Other long term (current) drug therapy
CPT/HCPCS: 80048; 80076; 82803; 83690; 85025; 96374; 96375; 99284; J2405

== ENCOUNTER → 2016-11-04 | Outpatient (REF) | payer OTHER ==
[2016-11-04 18:35] LABS: ALBUMIN 3.5 GM/DL (3.2-5.2); BILIRUBIN,TOTAL 0.6 MG/DL (0.2-1.0); CREATININE FOR GFR 1.44 MG/DL (0.70-1.30); FREE T4 0.97 NG/DL (0.76-1.46); GLOMERULAR FILTRATION RATE 55.3 (>56)
== END ==
LOC: M SFHCLERA 16:38
PROVIDERS: ATTEND Family Medicine
DX: N25.9 Disorder resulting from impaired renal tubular function, unspecified (principal)

== ENCOUNTER → 2016-11-08 | Outpatient (REF) | payer OTHER ==
[2016-11-08 12:02] LABS: ALBUMIN 3.6 GM/DL (3.2-5.2); ALBUMIN/GLOBULIN RATIO 0.97 (1.00-1.93); ALKALINE PHOSPHATASE 216 U/L (45-117); ALT/SGPT 68 U/L (12-78); AMYLASE 84 U/L (25-115); ANION GAP 7 MEQ/L (8-16); AST/SGOT 38 U/L (15-37); BILIRUBIN,TOTAL 0.5 MG/DL (0.2-1.0); BLOOD UREA NITROGEN 21 MG/DL (7-18); CALCIUM LEVEL 8.9 MG/DL (8.5-10.1); CARBON DIOXIDE LEVEL 27 MEQ/L (21-32); CHLORIDE LEVEL 104 MEQ/L (98-107); CREATININE FOR GFR 1.21 MG/DL (0.70-1.30); GLOMERULAR FILTRATION RATE > 60.0 (>56); GLUCOSE, FASTING 232 MG/DL (70-105); POTASSIUM SERUM 4.9 MEQ/L (3.5-5.1); SODIUM LEVEL 138 MEQ/L (136-145); TOTAL PROTEIN 7.3 GM/DL (6.4-8.2)
== END ==
LOC: M SFHCLERA 08:49
PROVIDERS: ATTEND Family Medicine
DX: E11.9 Type 2 diabetes mellitus without complications (principal); N25.9 Disorder resulting from impaired renal tubular function, unspecified

== ENCOUNTER → 2016-11-08 | Outpatient (CLI) | payer OTHER ==
--- NOTE | 2016-11-08 13:16 | REP ---
Clinical: Decreasing renal function. Technique: Real time gallegos scale and color evaluation using curved array transducer. Findings: The bilateral kidneys are normal in contour, size, echogenicity, and reniform shape without hydronephrosis, cystic or renal mass lesion. Multiple bilateral intrarenal calculi are appreciated measuring up to 15 mm lower pole right kidney and 9 mm upper pole left kidney. The bladder is unremarkable and bilateral ureteral jets are appreciated. The prostate gland is enlarged and measures 4.8 x 4.0 x 2.8 cm. Right kidney measures 11.2 x 5.0 x 5.4 cm. Left kidney measures 11.0 x 5.6 x 6.1 cm. Prevoid bladder measures 12.6 x 9.1 x 6.5 cm (490 ml) Postvoid bladder measures 3.8 x 3.4 x 3.7 cm (24 ml) Postvoid residual equals 4.8%. Impression: Bilateral nephrolithiasis without hydronephrosis. Normal bladder. Mildly enlarged prostate gland. Signed by Edward East MD 11/08/2016 01:07 P
== END ==
LOC: M RAD 11:18
PROVIDERS: ATTEND Family Medicine
DX: N20.0 Calculus of kidney (principal); N40.1 Benign prostatic hyperplasia with lower urinary tract symptoms; N25.9 Disorder resulting from impaired renal tubular function, unspecified

== ENCOUNTER → 2017-02-15 | Outpatient (CLI) | payer OTHER ==
[2017-02-15 09:53] LABS: BASO % 0.7 % (0.0-1.0); EOS # 0.4 K/mm3 (0.0-0.50); EOS % 7.5 % (0.0-3.0); LARGE UNSTAINED CELL # 0.1 K/mm3 (0.0-0.4); LARGE UNSTAINED CELL % 2.3 % (0.0-4.0); LYMPH # 1.5 K/mm3 (1.5-4.5); LYMPH % 28.7 % (24.0-44.0); MEAN CORPUSCULAR HEMOGLOBIN 31.1 pg (27.0-33.0); MEAN CORPUSCULAR HGB CONC 34.2 g/dl (32.0-36.5); MEAN CORPUSCULAR VOLUME 90.9 fl (80.0-96.0); MONO # 0.5 K/mm3 (0.0-0.8); MONO % 10.3 % (0.0-5.0); NEUTROPHILS # 2.5 K/mm3 (1.8-7.7); NEUTROPHILS % 50.6 % (36.0-66.0); PLATELET COUNT, AUTOMATED 154 k/mm3 (150-450); RED CELL DISTRIBUTION WIDTH 13.1 % (11.5-14.5)
[2017-02-15 10:24] LABS: ALBUMIN 3.8 GM/DL (3.2-5.2); ALBUMIN/GLOBULIN RATIO 0.97 (1.00-1.93); ALKALINE PHOSPHATASE 137 U/L (45-117); ALT/SGPT 45 U/L (12-78); ANION GAP 5 MEQ/L (8-16); AST/SGOT 22 U/L (15-37); BILIRUBIN,TOTAL 0.6 MG/DL (0.2-1.0); BLOOD UREA NITROGEN 14 MG/DL (7-18); CALCIUM LEVEL 9.1 MG/DL (8.5-10.1); CARBON DIOXIDE LEVEL 29 MEQ/L (21-32); CHLORIDE LEVEL 108 MEQ/L (98-107); CHOLESTEROL LEVEL 179 MG/DL (<200); CREATININE FOR GFR 1.23 MG/DL (0.70-1.30); FREE T4 1.19 NG/DL (0.76-1.46); GLOMERULAR FILTRATION RATE > 60.0 (>56); GLUCOSE, FASTING 106 MG/DL (70-105); POTASSIUM SERUM 4.7 MEQ/L (3.5-5.1); SODIUM LEVEL 142 MEQ/L (136-145); TOTAL PROTEIN 7.7 GM/DL (6.4-8.2); TRIGLYCERIDES LEVEL 189 MG/DL (<150); URIC ACID 8.1 MG/DL (3.5-7.2)
--- NOTE | 2017-02-15 11:40 | REP ---
LEFT KNEE, FIVE VIEW: HISTORY: Injury. There is no acute fracture or dislocation. The joint spaces are normal in appearance. An osteophyte is present on the patella. IMPRESSION: There is no acute fracture or dislocation. Signed by Silvano Coleman MD 02/15/2017 11:54 A
== END ==
LOC: M LAB 09:07
PROVIDERS: ATTEND Physician Assistant
DX: M25.562 Pain in left knee (principal); N20.0 Calculus of kidney; E11.9 Type 2 diabetes mellitus without complications; M1A.00X0 Idiopathic chronic gout, unspecified site, without tophus (tophi); B19.20 Unspecified viral hepatitis C without hepatic coma
CPT/HCPCS: 36415; 73564; 80053; 80061; 81001; 82306; 83036; 84439; 84443; 84550; 85025; 86803; 87086; 87521; G0103

== ENCOUNTER 2017-03-28 19:48 | Emergency (ER) | payer OTHER ==
[~2017-03-28] VITALS: Ht 170.2 cm; Wt 67.7 kg
[2017-03-28 19:52] VITALS: BP 153/88
[2017-07-07] MEDS ORDERED: LISI-538 (15:37)
[2017-07-07] MEDS ORDERED: CARV25TA (15:37)
[2017-07-07] MEDS ORDERED: METF500T13 (15:37)
[2017-07-07] MEDS ORDERED: ALLO100T (15:37)
== END 2017-03-28 20:06 | disposition left against medical advice (07) ==
LOC: M ED 19:48
DX: R03.0 Elevated blood-pressure reading, without diagnosis of hypertension (principal); Z53.29 Procedure and treatment not carried out because of patient's decision for other reasons

== ENCOUNTER → 2017-08-09 | Outpatient (CLI) | payer OTHER ==
[~2017-08-09] MED LIST: ALLO100T; CARV25TA; LISI-538; METF500T13
== END ==
LOC: M WUC 17:13
PROVIDERS: ATTEND Physician Assistant
DX: M25.561 Pain in right knee (principal)

== ENCOUNTER 2018-04-27 02:13 | Emergency (ER) | payer OTHER, MEDICAID ==
[2018-04-27] MEDS: MORPHINE 10 MG/ML 1ML VIAL (J2270) IM (03:28)
[2018-04-27] MEDS: PERCOCET 5MG/325MG TAB PO (03:55)
[2018-04-27] MEDS: CLINDAMYCIN 150 MG CAP PO (04:52)
[2018-04-27] MEDS: HYDROMORPHONE HCL 0.5 MG/ 0.5 ML SYRINGE (J1170 PER 1) IM (04:52)
[2018-04-27] MEDS: ONDANSETRON 4MG/2ML VIAL (J2405) IV (05:30)
[2018-04-27] MEDS: HYDROMORPHONE HCL 0.5 MG/ 0.5 ML SYRINGE (J1170 PER 1) IV (05:50)
[2018-04-27] MEDS: LABETALOL HCL 100 MG/20 ML VIAL IV (05:51)
== END 2018-04-27 06:28 | disposition home or self-care (01) ==
LOC: M ED 02:13
DX: K04.7 Periapical abscess without sinus (principal); Z79.899 Other long term (current) drug therapy; Z79.84 Long term (current) use of oral hypoglycemic drugs
CPT/HCPCS: J2405

== ENCOUNTER 2018-09-03 15:26 | Emergency (ER) | payer OTHER, MEDICAID ==
[2018-09-03 15:44] LABS: HEMATOCRIT 52.3 % (42.0-52.0); HEMOGLOBIN 18.1 g/dl (13.5-17.5); MEAN CORPUSCULAR HEMOGLOBIN 31.8 pg (27.0-33.0); MEAN CORPUSCULAR HGB CONC 34.6 g/dl (32.0-36.5); MEAN CORPUSCULAR VOLUME 91.8 fl (80.0-96.0); PLATELET COUNT, AUTOMATED 214 10^3/uL (150-450)
[2018-09-03 16:14] LABS: LACTIC ACID SEPSIS PROTOCOL 5.1 MMOL/L (0.4-2.0)
[2018-09-03] MEDS: NS 1,000 ML IV (16:16)
[2018-09-03 16:18] LABS: ALBUMIN 4.6 GM/DL (3.2-5.2); ALKALINE PHOSPHATASE 143 U/L (45-117); ALT/SGPT 50 U/L (12-78); ANION GAP 14 MEQ/L (8-16); AST/SGOT 34 U/L (7-37); BILIRUBIN,DIRECT 0.3 MG/DL (0.0-0.2); BILIRUBIN,TOTAL 0.8 MG/DL (0.2-1.0); BLOOD UREA NITROGEN 17 MG/DL (7-18); CALCIUM LEVEL 9.2 MG/DL (8.5-10.1); CARBON DIOXIDE LEVEL 23 MEQ/L (21-32); CHLORIDE LEVEL 103 MEQ/L (98-107); CREATININE FOR GFR 1.51 MG/DL (0.70-1.30); ETHYL ALCOHOL (ETHANOL) 0.207 % (0.000-0.010); GLOMERULAR FILTRATION RATE 51.9 (>56); GLUCOSE, FASTING 164 MG/DL (70-100); POTASSIUM SERUM 3.6 MEQ/L (3.5-5.1); SODIUM LEVEL 140 MEQ/L (136-145); TOTAL PROTEIN 8.8 GM/DL (6.4-8.2)
[2018-09-03 16:19] LABS: ACETAMINOPHEN LEVEL < 2.0 UG/ML (10.0-30.0)
[2018-09-03 16:32] LABS: AMPHETAMINES LEVEL URINE NEGATIVE (NEGATIVE); BARBITURATES URINE NEGATIVE (NEGATIVE); BENZODIAZEPINES URINE NEGATIVE (NEGATIVE); CANNABINOIDS URINE NEGATIVE (NEGATIVE); COCAINE METABOLITE URINE POSITIVE (NEGATIVE); METHADONE URINE NEGATIVE (NEGATIVE); OPIATES URINE NEGATIVE (NEGATIVE); PHENCYCLIDINE URINE NEGATIVE (NEGATIVE)
[2018-09-03 20:13] LABS: LACTIC ACID SEPSIS PROTOCOL 3.4 MMOL/L (0.4-2.0)
[2018-09-03] MEDS: ALLOPURINOL 100 MG TAB PO (20:35)
[2018-09-03] MEDS: CARVedilol 12.5 MG TAB PO (20:36)
[2018-09-03] MEDS: metFORMIN (GLUCOPHAGE) 500 MG TAB PO (20:36)
== END 2018-09-03 21:18 | disposition home or self-care (01) ==
LOC: M ED 15:26
DX: F10.129 Alcohol abuse with intoxication, unspecified (principal); Y90.1 Blood alcohol level of 20-39 mg/100 ml; F14.10 Cocaine abuse, uncomplicated; R56.9 Unspecified convulsions; I10 Essential (primary) hypertension; E11.9 Type 2 diabetes mellitus without complications; I25.10 Atherosclerotic heart disease of native coronary artery without angina pectoris; Z79.899 Other long term (current) drug therapy; Z79.84 Long term (current) use of oral hypoglycemic drugs
CPT/HCPCS: 70450

== ENCOUNTER → 2018-12-25 | Outpatient (REF) | payer OTHER ==
[~2018-12-25] MED LIST changes: -ALLO100T; +ALLO100T PO; -CARV25TA; +CARV25TA PO; +CLEO300C2 PO; +LISI40TA PO; -METF500T13; +METF500T13 PO; +PERC5TAB12 PO
[2018-12-25 19:40] LABS: BASO % 0.3 % (0.0-1.0); EOS # 0.3 10^3/uL (0.0-0.50); EOS % 4.4 % (0.0-3.0); HEMATOCRIT 45.5 % (42.0-52.0); HEMOGLOBIN 15.1 g/dl (13.5-17.5); LYMPH # 1.9 10^3/uL (1.5-4.5); MEAN CORPUSCULAR HEMOGLOBIN 30.8 pg (27.0-33.0); MEAN CORPUSCULAR HGB CONC 33.2 g/dl (32.0-36.5); MEAN CORPUSCULAR VOLUME 92.9 fl (80.0-96.0); MONO # 0.9 10^3/uL (0.0-0.8); MONO % 14.5 % (0.0-5.0); NEUTROPHILS # 3.3 10^3/uL (1.8-7.7); NEUTROPHILS % 50.5 % (36.0-66.0); PLATELET COUNT, AUTOMATED 166 10^3/uL (150-450); WHITE BLOOD COUNT 6.4 10^3/uL (4.0-10.0)
[2018-12-25 19:41] LABS: ALBUMIN 4.1 GM/DL (3.2-5.2); ALT/SGPT 53 U/L (12-78); BILIRUBIN,TOTAL 0.5 MG/DL (0.2-1.0); BLOOD UREA NITROGEN 14 MG/DL (7-18); CALCIUM LEVEL 9.4 MG/DL (8.5-10.1); CARBON DIOXIDE LEVEL 31 MEQ/L (21-32); CHLORIDE LEVEL 105 MEQ/L (98-107); CHOLESTEROL LEVEL 241 MG/DL (<200); CHOLESTEROL RISK RATIO 8.607 (<5); CREATININE FOR GFR 1.39 MG/DL (0.70-1.30); GLOMERULAR FILTRATION RATE 57.1 (>56); GLUCOSE, FASTING 117 MG/DL (70-100); HDL CHOLESTEROL 28 MG/DL (>40); NON-HDL-C 213 MG/DL; POTASSIUM SERUM 4.4 MEQ/L (3.5-5.1); SODIUM LEVEL 139 MEQ/L (136-145); TRIGLYCERIDES LEVEL 516 MG/DL (<150)
[2018-12-25 19:42] LABS: TOTAL 25(OH) VITAMIN D 8.7 NG/ML (30.0-100.0)
[2018-12-27 14:04] LABS: HEPATITIS C VIRUS ABY INDEX > 11.0 INDEX (<0.8)
[2018-12-28 14:36] LABS: HEPATITIS C QUANTITATION HCV Not Detected IU/mL (.)
== END ==
LOC: M LAB REF 10:07
PROVIDERS: ATTEND Nurse Practitioner Family
DX: I10 Essential (primary) hypertension (principal); E78.5 Hyperlipidemia, unspecified; E11.9 Type 2 diabetes mellitus without complications

== ENCOUNTER 2019-01-18 14:10 | Emergency (ER) | payer MEDICAID, OTHER ==
[~2019-01-18] VITALS: Ht 175.3 cm; Wt 82.1 kg
[2019-01-18] MEDS ORDERED: IBUPROFEN 600 MG TAB PO ONE (14:45)
--- NOTE | 2019-01-18 15:20 | REP ---
RIGHT ELBOW, FOUR VIEWS: HISTORY: Pain. There is no acute fracture or dislocation. The joint space is normal in appearance. IMPRESSION: There is no acute fracture or dislocation. Electronically Signed by Silvano Coleman MD 01/18/2019 03:23 P
[2019-01-18 15:57] VITALS: BP 136/79
== END 2019-01-18 16:07 | disposition home or self-care (01) ==
LOC: M ED 14:10
DX: M25.521 Pain in right elbow (principal); I10 Essential (primary) hypertension; E11.9 Type 2 diabetes mellitus without complications; F33.9 Major depressive disorder, recurrent, unspecified; F41.9 Anxiety disorder, unspecified; M10.9 Gout, unspecified; Z79.899 Other long term (current) drug therapy; Z79.84 Long term (current) use of oral hypoglycemic drugs

== ENCOUNTER → 2019-06-01 | Outpatient (REF) | payer OTHER ==
[2019-06-01 12:50] LABS: APPEARANCE, URINE CLEAR (CLEAR); BACTERIA, URINE AUTO NEGATIVE (NEGATIVE); BILIRUBIN, URINE AUTO NEGATIVE (NEGATIVE); BLOOD, URINE BLOOD NEGATIVE (NEGATIVE); COLOR, URINE YELLOW (YELLOW); GLUCOSE, URINE (UA) AUTO NEGATIVE (NEGATIVE); KETONE, URINE AUTO NEGATIVE (NEGATIVE); LEUKOCYTE ESTERASE, URINE AUTO NEGATIVE (NEGATIVE); MUCUS, URINE SMALL (NEGATIVE); NITRITE, URINE AUTO NEGATIVE (NEGATIVE); PROTEIN, URINE AUTO NEGATIVE (NEGATIVE); RBC, URINE AUTO 1 /HPF (0-3); SPECIFIC GRAVITY URINE AUTO 1.015 (1.002-1.035); SQUAMOUS EPITHELIAL CELL UR AU 0 /HPF (0-6); UROBILINOGEN, URINE AUTO 0.2 mg/dL (0.0-2.0); WBC, URINE AUTO 1 /HPF (0-3)
[2019-06-01 13:52] LABS: MALB URINE SIEMENS 29.5 MG/L; MAU/CREAT RATIO 18.9 MCG/MG (0.0-30.0)
[2019-06-01 18:04] LABS: BASO % 0.3 % (0.0-1.0); EOS # 0.2 10^3/uL (0.0-0.5); EOS % 3.5 % (0.0-3.0); HEMOGLOBIN 15.2 g/dl (13.5-17.5); LYMPH # 1.6 10^3/uL (1.5-5.0); LYMPH % 28.2 % (24.0-44.0); MEAN CORPUSCULAR HEMOGLOBIN 31.2 pg (27.0-33.0); MEAN CORPUSCULAR HGB CONC 33.8 g/dl (32.0-36.5); MEAN CORPUSCULAR VOLUME 92.4 fl (80.0-96.0); MONO # 0.6 10^3/uL (0.0-0.8); MONO % 10.6 % (0.0-5.0); NEUTROPHILS # 3.3 10^3/uL (1.5-8.5); NEUTROPHILS % 57.1 % (36.0-66.0); PLATELET COUNT, AUTOMATED 147 10^3/uL (150-450); RED BLOOD COUNT 4.87 10^6/uL (4.30-6.10); WHITE BLOOD COUNT 5.8 10^3/uL (4.0-10.0)
[2019-06-01 18:30] LABS: BILIRUBIN,TOTAL 0.7 MG/DL (0.2-1.0); CALCIUM LEVEL 9.6 MG/DL (8.5-10.1); CHOLESTEROL RISK RATIO 5.294 (<5); CREATININE FOR GFR 1.34 MG/DL (0.70-1.30); FREE T4 1.08 NG/DL (0.76-1.46); GLOMERULAR FILTRATION RATE 59.4 (>56); MAGNESIUM LEVEL 1.8 MG/DL (1.8-2.4); POTASSIUM SERUM 4.2 MEQ/L (3.5-5.1); THYROID STIMULATING HORMONE 3.58 uIU/ML (0.358-3.740); TOTAL PROTEIN 7.6 GM/DL (6.4-8.2)
[2019-06-01 19:19] LABS: HEMOGLOBIN A1c 7.7 %
== END ==
LOC: M LAB REF 12:33
PROVIDERS: ATTEND Nurse Practitioner Family
DX: Z13.9 Encounter for screening, unspecified (principal); E11.9 Type 2 diabetes mellitus without complications; E78.5 Hyperlipidemia, unspecified; I10 Essential (primary) hypertension

== ENCOUNTER → 2019-09-25 | Outpatient (REF) | payer OTHER ==
[2019-09-25 18:19] LABS: BASO % 0.4 % (0.0-1.0); EOS # 0.2 10^3/uL (0.0-0.5); EOS % 3.9 % (0.0-3.0); HEMOGLOBIN 15.3 g/dl (13.5-17.5); LYMPH % 41.6 % (24.0-44.0); MEAN CORPUSCULAR HEMOGLOBIN 29.7 pg (27.0-33.0); MEAN CORPUSCULAR HGB CONC 31.9 g/dl (32.0-36.5); MEAN CORPUSCULAR VOLUME 93.2 fl (80.0-96.0); MONO # 0.5 10^3/uL (0.0-0.8); MONO % 10.5 % (0.0-5.0); NEUTROPHILS # 2.1 10^3/uL (1.5-8.5); NEUTROPHILS % 43.2 % (36.0-66.0); PLATELET COUNT, AUTOMATED 144 10^3/uL (150-450); RED BLOOD COUNT 5.15 10^6/uL (4.30-6.10); WHITE BLOOD COUNT 4.9 10^3/uL (4.0-10.0)
[2019-09-25 18:25] LABS: ALBUMIN 3.9 GM/DL (3.2-5.2); BILIRUBIN,TOTAL 0.6 MG/DL (0.2-1.0); CALCIUM LEVEL 9.4 MG/DL (8.5-10.1); CHOLESTEROL RISK RATIO 6.103 (<5); CREATININE FOR GFR 1.45 MG/DL (0.70-1.30); FREE T4 1.24 NG/DL (0.76-1.46); GLOMERULAR FILTRATION RATE 54.2 (>56); THYROID STIMULATING HORMONE 3.61 uIU/ML (0.358-3.740)
[2019-09-25 18:28] LABS: TOTAL 25(OH) VITAMIN D 12.2 NG/ML (30.0-100.0)
[2019-09-25 18:37] LABS: HEMOGLOBIN A1c 8.4 %
== END ==
LOC: M LAB REF 17:10
PROVIDERS: ATTEND Nurse Practitioner Family
DX: Z13.9 Encounter for screening, unspecified (principal); E78.5 Hyperlipidemia, unspecified; I10 Essential (primary) hypertension

== ENCOUNTER → 2020-08-04 | Outpatient (REF) | payer OTHER ==
[2020-08-04 18:11] LABS: BASO % 0.4 % (0.0-1.0); EOS # 0.2 10^3/uL (0.0-0.5); EOS % 3.9 % (0.0-3.0); HEMATOCRIT 49.2 % (42.0-52.0); HEMOGLOBIN 16.5 g/dl (13.5-17.5); LYMPH # 1.5 10^3/uL (1.5-5.0); LYMPH % 27.2 % (24.0-44.0); MEAN CORPUSCULAR HEMOGLOBIN 31.1 pg (27.0-33.0); MEAN CORPUSCULAR HGB CONC 33.5 g/dl (32.0-36.5); MEAN CORPUSCULAR VOLUME 92.8 fl (80.0-96.0); MONO # 0.8 10^3/uL (0.0-0.8); MONO % 13.4 % (0.0-5.0); NEUTROPHILS # 3.1 10^3/uL (1.5-8.5); NEUTROPHILS % 54.7 % (36.0-66.0); PLATELET COUNT, AUTOMATED 159 10^3/uL (150-450); WHITE BLOOD COUNT 5.7 10^3/uL (4.0-10.0)
[2020-08-04 18:14] LABS: BILIRUBIN,TOTAL 0.9 MG/DL (0.2-1.0); CALCIUM LEVEL 9.5 MG/DL (8.5-10.1); CHOLESTEROL RISK RATIO 6.406 (<5); CREATININE FOR GFR 1.37 MG/DL (0.70-1.30); FREE T4 1.2 NG/DL (0.76-1.46); GLOMERULAR FILTRATION RATE 57.6 (>56); POTASSIUM SERUM 4.7 MEQ/L (3.5-5.1); THYROID STIMULATING HORMONE 3.34 uIU/ML (0.358-3.740); TOTAL PROTEIN 7.6 GM/DL (6.4-8.2)
[2020-08-04 18:15] LABS: TOTAL 25(OH) VITAMIN D 11.6 NG/ML (30.0-100.0)
[2020-08-04 18:33] LABS: HEMOGLOBIN A1c 10.3 %
[2020-08-06 21:07] LABS: PSA TOTAL 0.3 ng/mL (0.0-4.0)
== END ==
LOC: M LAB REF 16:39
PROVIDERS: ATTEND Nurse Practitioner Family
DX: I10 Essential (primary) hypertension (principal); G89.29 Other chronic pain; E78.5 Hyperlipidemia, unspecified

== ENCOUNTER → 2020-08-30 | Outpatient (CLI) | payer SELFPAY | LOC: M LABSMTC 10:16 | PROVIDERS: ATTEND Pediatrics | DX: Z20.828 Contact with and (suspected) exposure to other viral communicable diseases (principal) ==

== ENCOUNTER 2020-10-30 20:15 | Observation (INO) | payer OTHER ==
[~2020-10-30] VITALS: Ht 172.7 cm; Wt 77.3 kg
[~2020-10-30 20:15] MED LIST changes: -LISI-538; +LISI20TA33; -LISI40TA PO; +LISI40TA4 PO
--- OUTSIDE RECORDS SUMMARY | 2020-10-30 20:22 | CCD ---
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 Name Role Phone Humera Almazan Unavailable Unavailable Allergies Code Code System Name Reaction Severity Status Onset NKDA Medications Name Status Start Date Stop Date atorvastatin 10 mg tablet TAKE ONE TABLET BY MOUTH DAILY AT BEDTIME Completed 07/23/2020 atorvastatin 20 mg tablet Active Not av ailable carvedilol 25 mg tablet Active Not avai lable ibuprofen 800 mg tablet Active Not avai lable lisinopril 40 mg tablet Active Not avai lable metformin 1,000 mg tablet TAKE ONE TABLET BY MOUTH TWICE A DAY DIRECTED Active Not available metformin 500 mg tablet Completed 08/11/20 OneTouch Delica Plus Lancet 33 gauge MONITOR BLOOD SUGAR ONCE A DAY Active Not avai lable OneTouch Ultra Blue Test Strip USE TO MONITOR BLOOD SUGAR ONCE DAILY Active N ot available OneTouch Ultra2 Meter USE TO TEST SUGARS TWO TIMES A DAY Active Not available OneTouch UltraSoft Lancets Active Not a vailable prednisone 10 mg tablet TAKE ONE TABLET BY MOUTH EVERY DAY NEEDED Active Not available Trulicity 0.75 mg/0.5 mL subcutaneous pe n injector Inject 0.5 mL every week by subcutaneous route. Active Not available Vitamin D2 1,250 mcg (50,000 unit) capsu le Take 1 capsule every week by oral route as directed. 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 History Clinical Finding Active 01/09/2013 History Hyperlipidemia Active 02/13/2013 History Hypertensive Disorder Active 02/13/2013 History Finding of Esophagus Active 05/01/2013 History Headache Active 06/21/2013 History Swelling / Lump Finding Active 01/31/2018 History Screening for Malignant Neoplasm of Prostate Active History Screening Procedure Active 01/31/2018 History Clinical Finding Active 12/25/2018 History Pain of Right Elbow Joint Active 12/25/2018 Histor y Mixed Bipolar Affective Disorder Active 03/09/[address] Concept Active 03/09/2019 History Viral Hepatitis C Active History Depressive Disorder Active History Clinical Finding Active History Viral Hepatitis a without Hepatic Coma Active History Clinical Finding Active History Procedures Notes: Unremarkable, Results Lab Results Date Name Specimen Result Interpretation Description Value Range Status Address 08/04/2020 CBC W/ Auto Diff Blood venous Normal White Blood C ount 5.7 10 4.0-10.0 10 [facility]: 83 0 [facility] Blood venous Normal Red Blood Count 5.30 10 4.30- 6.10 10 [facility]: [address] [facility] Blood venous Normal Hemoglobin 16.5 g/dL 13.5-17. 5 g/dL [facility]: [address] [facility] Blood venous Normal Hematocrit 49.2 % 42.0-52.0 % [facility]: [address] [facility] Blood venous Normal Mean Corpuscular Volume 92.8 fL 80.0-96.0 fL [facility]: [address] [facility] Blood venous Normal Mean Corpuscular Hemoglob in 31.1 pg 27.0-33.0 pg [facility]: [address] [facility] Blood venous Normal Mean Corpuscular HGB Conc 33.5 g/dL 32.0-36.5 g/dL [facility]: [address] [facility] Blood venous Normal Red Cell Distribution Wid th 12.3 % 11.5-14.5 % [facility]: [address] [facility] Blood venous Normal Platelet Count, Automated 159 10 150-450 10 [facility]: [address] [facility] Blood venous Normal Neutrophils % 54.7 % 36.0-66. 0 % [facility]: [address] [facility] Blood venous Normal Lymph % 27.2 % 24.0-44.0 % [facility]: [address] [facility] Blood venous High [place] % 13.4 % 0.0-5.0 % [facility]: [address] [facility] Blood venous High Eos % 3.9 % 0.0-3.0 % [facility]: [address] [place] [address] Blood venous Normal Baso % 0.4 % 0.0-1.0 % [facility]: [address] [place] [address] Blood venous Normal Immature Granulocyte % 0.4 % 0-3.0 % [facility]: [address] [place] [address] Blood venous Normal Nucleated Red Blood Cell % 0. 0 % 0-0 % [facility]: [address] [place] [address] Blood venous Normal Neutrophils # 3.1 10 1.5-8.5 10 [facility]: [address] [place] [address] Blood venous Normal Lymph # 1.5 10 1.5-5.[address] [facility]: [address] [place] [address] Blood venous Normal [place] # 0.8 10 0.0-0.8 10 [facility]: [address] [place] [address] Blood venous Normal Eos # 0.2 10 0.0-0.5 10 [facility]: [address] [place] [address] Blood venous Normal Baso # 0.0 10 0.0-0.2 10 [facility]: [address] [place] [address] 08/04/2020 CMP, Serum or Plasma Blood venous High Glu cose, Fasting 200 mg/dL 70-100 mg/dL [facility] nter: [address] [place] [address] Blood venous Normal Blood Urea Nitrogen 12 mg/dL 7-18 mg/dL [facility]: [address] [place] [address] Blood venous High Creatinine for GFR 1.37 mg/dL 0.70-1.30 mg/dL [facility]: [address] [place] [address] Blood venous Normal Glomerular Filtration Rate 57 .6 >56 [facility]: [address] [place] [address] Blood venous Normal Sodium Level 139 mEq/L 136-14 5 mEq/L [facility]: [address] [place] [address] Blood venous Normal Potassium Serum 4.7 mEq/L 3.5 -5.1 mEq/L [facility]: [address] [place], [place] [address] Blood venous Normal Chloride Level 106 mEq/L 98-1 07 mEq/L [facility]: [address] [facility] Blood venous Normal Carbon Dioxide Level 30 mEq/L 21-32 mEq/L [facility]: [address] [facility] Blood venous Low Anion Gap 3 mEq/L 8-16 mEq/L [facility]: [address] [facility] Blood venous Normal Calcium Level 9.5 mg/dL 8.5-1 0.1 mg/dL [facility]: [address] [facility] Blood venous Normal AST/SGOT 11 U/L 7-37 U/L Mercedes l [facility]: [address] [facility] Blood venous Normal ALT/SGPT 44 U/L 12-78 U/L [facility]: [address] [facility] Blood venous High Alkaline Phosphatase 130 U/L 45-117 U/L [facility]: [address] [facility] Blood venous Normal Bilirubin,total 0.9 mg/dL 0.2 -1.0 mg/dL [facility]: [address] [facility] Blood venous Normal Total Protein 7.6 gm/dL 6.4-8 .2 gm/dL [facility]: 0 [facility] Blood venous Normal Albumin 4.0 gm/dL 3.2-5.2 gm/ dL [facility]: 0 [facility] Blood venous Normal Albumin/globulin Ratio 1.1 [facility]: 0 [facility] 08/04/2020 Lipid Panel, Blood Blood venous High Trigl ycerides Level 334 mg/dL <150 mg/dL [facility] nter: [address] [facility] Blood venous High Cholesterol Level 205 mg/dL < 200 mg/dL [facility]: [address] [facility] Blood venous Low HDL Cholesterol 32 mg/dL >40 mg/dL [facility]: [address] [facility] Blood venous High LDL Cholesterol 106 mg/dL <10 0 mg/dL [facility]: [address] [facility] Blood venous Normal Non-hdl-c 173 mg/dL [facility]: [address] [facility] Blood venous High Cholesterol Risk Ratio 6.406 <5 [facility]: [address] [place] [address] 08/04/2020 TSH + Free T4, Serum Blood venous Normal Thyroid Stimulating Hormone 3.340 uIU/mL 0.358-3.740 uIU/mL [facility] Center: [address] [place] [address] Blood venous Normal Free T4 1.20 NG/dL 0.76-1.46 NG/dL [facility]: [address] [place] [address] 08/04/2020 Vitamin D, 25-Hydroxy, Total, Serum Blood venous Low Total 25(Oh) Vitamin D 11.6 NG/mL 30.0-100.0 NG/mL [facility] Center: [address] [place] [address] 08/04/2020 HbA1C (Hemoglobin a1C), Blood Blood venous Normal Hemoglobin a1C 10.3 % [facility]: [address] [place] [address] Blood venous High Estimated Average Glucose 249 mg/dL 60-110 mg/dL [facility]: [address] [place] [address] 08/04/2020 PSA, Total + Free, Serum or Plasma Blood venous Normal PSA Total 0.3 NG/mL 0.0-4.0 NG/mL [facility]: [address] [place] [address] Blood venous Normal PSA Comment . [facility]: [address] [place] [address] Past Encounters 08/11/2020 Type II Diabetes Mellitus Uncontrolled; Vitamin D Deficiency; Patient Asked to Attend; Hyperlipidemia; Hypertensive Disorder NORBERTO ZaragozaBC: [address] [place] [address], Ph. 08/04/2020 NORBERTO ZaragozaBC: [address] [place] [address], Ph. 07/23/2020 Hypertensive Disorder; Essential Hypertension; Gout; Disorder Due to Type 2 Diabetes Mellitus; Type II Diabetes Mellitus Uncontrolled; Chronic Pain Syndrome Humera Almazan [facility]: [address] [place] [address], Ph. Social History Tobacco Smoking Status Light Tobacco Smoker (09/22 PPD) Vaccine List Notes: Pt refused Flu vaccine Plan of Care Patient Instructions HBGA1c 10.3. Please try to maintain di abetic diet. Please try to continue medications as prescribed. Please continue diabetic diet and physical activities. Please monitor and log blood sugar results daily. Please bring log to your next visit. Script sent to start trulicity. please administer weekly as prescribed. Please report any major side effects. Reminders Provider Appointments None recorded. Lab None recorded. Referral None recorded. Procedures None recorded. Surgeries None recorded. Imaging None recorded. Vitals 08/11/2020 04:20PM ESTABLISHED [id number] Height Weight BMI Blood Pressure 68 in 170 lbs 6 oz 25.9 kg/m2 (1) 162/100 mm [Hg] (2) 135/91 mm[Hg] 07/23/2020 02:40PM ESTABLISHED [id number] Height Weight BMI Blood Pressure 68 in 168 lbs 9.6 oz 25.6 kg/m2 119/79 mm[Hg ] 06/18/2019 Height Weight Blood Pressure 67 in 182 lbs 128/88 mm[Hg] 06/04/2019 Height Weight Blood Pressure 67 in 187 lbs 120/81 mm[Hg] 06/01/2019 Blood Pressure 130/88 mm[Hg] 03/09/2019 Height Weight Blood Pressure 67 in 187 lbs 150/105 mm[Hg] 12/25/2018 Height Weight Blood Pressure 67 in 183 lbs 155/99 mm[Hg]
--- OUTSIDE RECORDS SUMMARY | 2020-10-30 20:23 | CCD ---
Author Author [facility] Address Unknown Phone Unavailable Care Team Providers Care Developer Relations Manager Name Role Phone ALIASES , DEFAULT / GENERIC / UNKNOWN PROVIDER * Unavailable Unavailable ALIASES , DEFAULT / GENERIC / UNKNOWN PROVIDER * Unavailable Unavailable ALIASES , DEFAULT / GENERIC / UNKNOWN PROVIDER * Unavailable Unavailable ALIASES , DEFAULT / GENERIC / UNKNOWN PROVIDER * Unavailable Unavailable ALIASES , DEFAULT / GENERIC / UNKNOWN PROVIDER * Unavailable Unavailable ALIASES , DEFAULT / GENERIC / UNKNOWN PROVIDER * Unavailable Unavailable ALIASES , DEFAULT / GENERIC / UNKNOWN PROVIDER * Unavailable Unavailable ALIASES , DEFAULT / GENERIC / UNKNOWN PROVIDER * Unavailable Unavailable ALIASES , DEFAULT / GENERIC / UNKNOWN PROVIDER * Unavailable Unavailable ALIASES , DEFAULT / GENERIC / UNKNOWN PROVIDER * Unavailable Unavailable ALIASES , DEFAULT / GENERIC / UNKNOWN PROVIDER * Unavailable Unavailable ALIASES , DEFAULT / GENERIC / UNKNOWN PROVIDER * Unavailable Unavailable ALIASES , DEFAULT / GENERIC / UNKNOWN PROVIDER * Unavailable Unavailable ALIASES , DEFAULT / GENERIC / UNKNOWN PROVIDER * Unavailable Unavailable ALIASES , DEFAULT / GENERIC / UNKNOWN PROVIDER * Unavailable Unavailable ALIASES , DEFAULT / GENERIC / UNKNOWN PROVIDER * Unavailable Unavailable ALIASES , DEFAULT / GENERIC / UNKNOWN PROVIDER * Unavailable Unavailable ALIASES , DEFAULT / GENERIC / UNKNOWN PROVIDER * Unavailable Unavailable ALIASES , DEFAULT / GENERIC / UNKNOWN PROVIDER * Unavailable Unavailable ALIASES , DEFAULT / GENERIC / UNKNOWN PROVIDER * Unavailable Unavailable ALIASES , DEFAULT / GENERIC / UNKNOWN PROVIDER * Unavailable Unavailable ALIASES , DEFAULT / GENERIC / UNKNOWN PROVIDER * Unavailable Unavailable ALIASES , DEFAULT / GENERIC / UNKNOWN PROVIDER * Unavailable Unavailable ALIASES , DEFAULT / GENERIC / UNKNOWN PROVIDER * Unavailable Unavailable ALIASES , DEFAULT / GENERIC / UNKNOWN PROVIDER * Unavailable Unavailable ALIASES , DEFAULT / GENERIC / UNKNOWN PROVIDER * Unavailable Unavailable ALIASES , DEFAULT / GENERIC / UNKNOWN PROVIDER * Unavailable Unavailable ALIASES , DEFAULT / GENERIC / UNKNOWN PROVIDER * Unavailable Unavailable ALIASES , DEFAULT / GENERIC / UNKNOWN PROVIDER * Unavailable Unavailable ALIASES , DEFAULT / GENERIC / UNKNOWN PROVIDER * Unavailable Unavailable ALIASES , DEFAULT / GENERIC / UNKNOWN PROVIDER * Unavailable Unavailable ALIASES , DEFAULT / GENERIC / UNKNOWN PROVIDER * Unavailable Unavailable ALIASES , DEFAULT / GENERIC / UNKNOWN PROVIDER * Unavailable Unavailable ALIASES , DEFAULT / GENERIC / UNKNOWN PROVIDER * Unavailable Unavailable ALIASES , DEFAULT / GENERIC / UNKNOWN PROVIDER * Unavailable Unavailable ALIASES , DEFAULT / GENERIC / UNKNOWN PROVIDER * Unavailable Unavailable ALIASES , DEFAULT / GENERIC / UNKNOWN PROVIDER * Unavailable Unavailable ALIASES , DEFAULT / GENERIC / UNKNOWN PROVIDER * Unavailable Unavailable ALIASES , DEFAULT / GENERIC / UNKNOWN PROVIDER * Unavailable Unavailable ALIASES , DEFAULT / GENERIC / UNKNOWN PROVIDER * Unavailable Unavailable ALIASES , DEFAULT / GENERIC / UNKNOWN PROVIDER * Unavailable Unavailable ALIASES , DEFAULT / GENERIC / UNKNOWN PROVIDER * Unavailable Unavailable ALIASES , DEFAULT / GENERIC / UNKNOWN PROVIDER * Unavailable Unavailable ALIASES , DEFAULT / GENERIC / UNKNOWN PROVIDER * Unavailable Unavailable ALIASES , DEFAULT / GENERIC / UNKNOWN PROVIDER * Unavailable Unavailable ALIASES , DEFAULT / GENERIC / UNKNOWN PROVIDER * Unavailable Unavailable ALIASES , DEFAULT / GENERIC / UNKNOWN PROVIDER * Unavailable Unavailable Tha, Gisele Humera POWER ENGINEER Unavailable Unavailable Tha, A Humera POWER ENGINEER Unavailable Unavailable Tha, A Humera POWER ENGINEER Unavailable Unavailable Elbert, A Humera POWER ENGINEER Unavailable Unavailable Elbert, A Humera POWER ENGINEER Unavailable Unavailable Elbert, A Humera POWER ENGINEER Unavailable Unavailable Elbert, A Humera POWER ENGINEER Unavailable Unavailable Elbert, A Humera POWER ENGINEER Unavailable Unavailable Elbert, A Humera POWER ENGINEER Unavailable Unavailable Elbert, A Humera POWER ENGINEER Unavailable Unavailable Elbert, A Humera POWER ENGINEER Unavailable Unavailable Elbert, A Humera POWER ENGINEER Unavailable Unavailable Elbert, A Humera POWER ENGINEER Unavailable Unavailable Elbert, A Humera POWER ENGINEER Unavailable Unavailable Elbert, A Humera POWER ENGINEER Unavailable Unavailable Elbert, A Humera POWER ENGINEER Unavailable Unavailable Elbert, A Humera POWER ENGINEER Unavailable Unavailable Elbert, A Humera POWER ENGINEER Unavailable Unavailable Elbert, A Humera POWER ENGINEER Unavailable Unavailable Elbert, A Humera POWER ENGINEER Unavailable Unavailable Elbert, A Humera POWER ENGINEER Unavailable Unavailable Elbert, A Humera POWER ENGINEER Unavailable Unavailable Elbert, A Humera POWER ENGINEER Unavailable Unavailable Elbert, A Humera POWER ENGINEER Unavailable Unavailable Elbert, A Humera POWER ENGINEER Unavailable Unavailable Elbert, A Humera POWER ENGINEER Unavailable Unavailable Elbert, A Humera POWER ENGINEER Unavailable Unavailable Elbert, A Humera POWER ENGINEER Unavailable Unavailable Elbert, Humera POWER ENGINEER POWER ENGINEER Unavailable Unavailable Elbert, A Humera POWER ENGINEER Unavailable Unavailable Elbert, A Humera POWER ENGINEER Unavailable Unavailable Elbert, A Humera POWER ENGINEER Unavailable Unavailable Elbert, A Humera POWER ENGINEER Unavailable Unavailable Elbert, A Humera POWER ENGINEER Unavailable Unavailable Elbert, A Humera POWER ENGINEER Unavailable Unavailable Elbert, A Humera POWER ENGINEER Unavailable Unavailable Elbert, A Humera POWER ENGINEER Unavailable Unavailable Elbert, A Humera POWER ENGINEER Unavailable Unavailable Elbert, A Humera POWER ENGINEER Unavailable Unavailable Elbert, A Humera POWER ENGINEER Unavailable Unavailable Elbert, A Humera POWER ENGINEER Unavailable Unavailable Elbert, A Humera POWER ENGINEER Unavailable Unavailable Elbert, A Humera POWER ENGINEER Unavailable Unavailable Elbert, A Humera POWER ENGINEER Unavailable Unavailable Elbert, A Humera POWER ENGINEER Unavailable Unavailable Elbert, A Humera POWER ENGINEER Unavailable Unavailable Elbert, A Humera POWER ENGINEER Unavailable Unavailable Elbert, A Humera POWER ENGINEER Unavailable Unavailable Elbert, A Humera POWER ENGINEER Unavailable Unavailable Elbert, A Humera POWER ENGINEER Unavailable Unavailable Elbert, A Humera POWER ENGINEER Unavailable Unavailable Elbert, A Humera POWER ENGINEER Unavailable Unavailable Elbert, A Humera POWER ENGINEER Unavailable Unavailable Tha, A Humera POWER ENGINEER Unavailable Unavailable Tha, A Humera POWER ENGINEER Unavailable Unavailable Tha, A Humera POWER ENGINEER Unavailable Unavailable Tha, A Humera POWER ENGINEER Unavailable Unavailable Re-disclosure Warning The records that you are about to access may contain information from federally-assisted alcohol or drug abuse programs. If such information is present, then the following federally mandated warning applies: This information has been disclosed to you from records protected by federal confidentiality rules (42 CFR part 2). The federal rules prohibit you from making any further disclosure of this information unless further disclosure is expressly permitted by the written consent of the person to whom it pertains or as otherwise permitted by 42 CFR part 2. A general authorization for the release of medical or other information is NOT sufficient for this purpose. The Federal rules restrict any use of the information to criminally investigate or prosecute any alcohol or drug abuse patient.The records that you are about to access may contain highly sensitive health information, the redisclosure of which is protected by Article 27-F of the [facility] Public Health law. If you continue you may have access to information: Regarding HIV / AIDS; Provided by facilities licensed or operated by the [facility] Office of Mental Health; or Provided by the [facility] Office for People With Developmental Disabilities. If such information is present, then the following [facility] mandated warning applies: This information has been disclosed to you from confidential records which are protected by state law. State law prohibits you from making any further disclosure of this information without the specific written consent of the person to whom it pertains, or as otherwise permitted by law. Any unauthorized further disclosure in violation of state law may result in a fine or intermediate sentence or both. A general authorization for the release of medical or other information is NOT sufficient authorization for further disc losure. Allergies and Adverse Reactions Type Description Substance Reaction Status Data Source(s ) Allergy to substance Allergy to substance Allergy to substance [facility] ([facility]) Family History Family Member Name Family Member Gender Family Member Status Date o f Status Description Data Source(s) Unknown Male Problem [facility]ENT ([facility]) () Unknown Unknown Problem [facility] ([facility]) Unknown Unknown Problem [facility]ENT ([facility]) Unknown Unknown Problem MEDENT ([facility]) Encounters Encounter Providers Location Date Indications Data Source(s ) [facility] [address] [place] [address], Ph. [facility] 12:00:00 AM EST [place] ([facility]) [facility] [address] [place] [address], Ph. [facility] 08/04/2020 12:00:00 AM EST [place] ([facility]) [facility] [address] [place] [address], Ph. [facility] 07/23/2020 12:00:00 AM EST [place] ([facility]) [facility] [address] [place] [address], Ph. Attender: Humera Almazan [facility] Medical 07/23/2020 12:00:00 AM EST [place] ([facility]) Outpatient Attender: BARBARA JIMENEZ 06/24/2020 05:23:00 P M EDT [facility] Outpatient Attender: Humera JIMENEZ 05/28/2020 07:0 1:02 PM EDT [facility] Outpatient Attender: BARBARA JIMENEZ 03/14/2020 09:02:01 A M EDT [facility] Outpatient Attender: BARBARA JIMENEZ 03/14/2020 09:01:00 A M EDT [facility] Outpatient Attender: Humera JIMENEZ 03/05/2020 06:3 9:01 PM EDT [facility] Outpatient Attender: Humera JIMENEZ 01/30/2020 10:4 0:02 AM EDT [facility] Outpatient Attender: BARBARA JIMENEZ FP 01/28/2020 12:56:01 P M EDT [facility] Outpatient Attender: BARBARA JIMENEZ FP 01/16/2020 02:54:00 P M EDT [facility] Outpatient Attender: BARBARA JIMENEZ FP 12/07/2019 04:11:00 P M EDT [facility] Outpatient Attender: BARBARA JIMENEZ FP 11/26/2019 09:01:04 P M EDT [facility] Outpatient Attender: Humera JIMENEZ FP 11/05/2019 03:4 1:01 PM [facility] Outpatient Attender: Humera JIMENEZ FP 10/01/2019 09:0 7:01 PM [facility] Outpatient Attender: BARBARA JIMENEZ FP 10/01/2019 09:07:00 P M [facility] Outpatient Attender: BARBARA JIMENEZ FP 10/01/2019 09:06:01 P M [facility] Outpatient Attender: Humera JIMENEZ FP 10/01/2019 09:0 6:01 PM [facility] Outpatient Attender: Humera JIMENEZ FP 10/01/2019 09:0 5:02 PM [facility] Outpatient Attender: BARBARA JIMENEZ FP 10/01/2019 09:05:02 P M [facility] Outpatient Attender: Humera JIMENEZ FP 09/27/2019 03:4 4:01 PM [facility] Outpatient Attender: Humera JIMENEZ FP 09/26/2019 10:2 1:59 PM [facility] Outpatient Attender: Humera JIMENEZ FP 09/25/2019 09:5 9:02 AM [facility] Outpatient Attender: BARBARA JIMENEZ FP 09/17/2019 11:51:00 A M [facility] Outpatient Admitter: DEFAULT / [place] / UNKNOWN PROVIDER ALIASES [id number] 09/06/2019 12:00:00 AM EST Family histor y of other congenital malformations, deformations and chromosomal abnormalities [facility] Family history of other congenital malfo rmations, deformations and chromosomal abnormalities Medications Medication Brand Name Start Date Product Form Dose Route Admi nistrative Instructions Pharmacy Instructions Status Indications Reaction Description Data Source(s) atorvastatin 10 MG Oral Tablet atorvasta tin 10 mg tablet TAKE ONE TABLET BY MOUTH DAILY AT BEDTIME atorvastatin 10 mg tablet TAKE ONE TABLE T BY MOUTH DAILY AT BEDTIME completed atorvastati n 10 MG Oral Tablet [place] ([facility]) atorvastatin 10 MG Oral Tablet atorvasta tin 10 mg tablet TAKE ONE TABLET BY MOUTH DAILY AT BEDTIME atorvastatin 10 mg tablet TAKE ONE TABLE T BY MOUTH DAILY AT BEDTIME completed atorvastati n 10 MG Oral Tablet [place] ([facility]) Metformin hydrochloride 500 MG Oral Tablet metformin 5 00 mg tablet metformin 500 mg tablet completed metformin hy drochloride 500 MG Oral Tablet [place] ([facility]) Insurance Providers Payer name Policy type / Coverage type Policy ID Covered alliance party ID Covered alliance party's relationship to foster Policy Fosetr Plan Information [facility] COMMUNITY PLAN [facility] [id number] SP [id number] SELF PAY ONLY [id number] SP [id number] Managed Care - [facility] Community Plan P [id number] S [id number] Medicaid S [id number] S [id number] Managed Care [facility] Community Plan P [id number] S [id number] Managed Care - [facility] Community Plan S [id number] S [id number] [facility] P [id number] S [id number] [employer] [id number] SP [id number] [facility] [id number] SP U [id number] [facility] P [id number] S [id number] [facility] I [id number] Self [id number] Medicaid O [id number] Managed Care - Community Plan [facility] S [id number] S [id number] [facility] [id number] SP [id number] Managed Care - Community Plan [facility] S [id number] S [id number] Medicaid O [id number] S [id number] [facility] P [id number] S [id number] [employer] [facility] [id number] SP U [id number] [employer] O [id number] S U [id number] [facility] O [id number] S [id number] Self Pay P UNAVAILABLE S UNAVAILA BLE Managed Care - Community Plan [facility] P [id number] S [id number] Medicaid S [id number] S [id number] [facility] COMMUNTY PLAN [id number] 18 [id number] [facility] [place] [id number] 18 [id number] [facility] Communty Plan Medicaid [id number] Self [id number] [facility] Community Plan Commercial [id number] Self [id number] [employer] HE[employer] [id number] 18 U [id number] [facility] - [id number] 18 [id number] [facility] Health Maintenance Organization (HMO) [id number] Self [id number] Cigna/Conn Gen/[employer] Commercial [id number] Self [id number] [facility] Community Plan Medicaid [id number] Self [id number] [facility] Commercial [id number] Self [id number] [facility] COMMUNITY PLAN [id number] 18 [id number] [facility] COMMUNITY PLAN [id number] 18 [id number] [facility] Community Plan Medicaid [id number] Self [id number] [facility] Community Plan Medicaid [id number] Self [id number] [facility] Community Plan Medicaid [id number] Self [id number] [facility] Health Maintenance Organization (HMO) [id number] Self [id number] [employer] Commercial [id number] Self [id number] [facility] Community Plan Medicaid [id number] Self [id number] [facility] COMMUNITY PLAN [facility] [id number] SP [id number] CIGNA HEALTHCARE [id number] SP U [id number] [facility] COMMUNITY PLAN [facility] [id number] SP [id number] [facility] Health Maintenance Organization (HMO) [id number] Self [id number] [facility] COMMUNITY PLAN MCDO [id number] SP [id number] CIGNA/MVP/CONN GEN/PREFE O [id number] S [id number] [facility]) O [id number] S [id number] [facility] COMMUNITY PLAN MCDO [id number] SP [id number] CIGNA INSURANCE CO [id number] SP [id number] Cigna/Conn Gen/[employer] Commercial Self United HLCR/Community In[facility] Health Maintenance Organization (HMO) Self [facility] [id number] SP [id number] BLUE CROSS PANCHAL PLAN [id number] SP [id number] Managed Care BCBS O [id number] S [id number] Managed Care - Community Plan [facility] P [id number] S [id number] Managed Care BCBS O UNAVAILABLE S UNAVAILABLE HMO BLUE [id number] SP [id number] Problems, Conditions, and Diagnoses Code Display Name Description Problem Type Effective Dates Data Source(s) [id number] Clinical finding Clinical Finding Problem 07/03/2020 06 :17:39 PM EDT [place] ([facility]) [id number] Viral hepatitis A without hepatic coma V iral Hepatitis a without Hepatic Coma Problem 07/03/2020 06:17:39 PM EDT [place] ([facility]) [id number] Clinical finding Clinical Finding Problem 07/03/2020 06 :17:39 PM EDT [place] ([facility]) 91477435 Depressive disorder Depressive Disorder Problem 1 06:17:39 PM EDT [place] ([facility]) 65687419 Viral hepatitis C Viral Hepatitis C Problem 07/03/2020 06:17:39 PM EDT [place] ([facility]) [id number] Clinical finding Clinical Finding Problem 07/03/2020 06 :17:39 PM EDT [place] ([facility]) [id number] Viral hepatitis A without hepatic coma V iral Hepatitis a without Hepatic Coma Problem 07/03/2020 06:17:39 PM EDT [place] ([facility]) [id number] Clinical finding Clinical Finding Problem 07/03/2020 06 :17:39 PM EDT [place] ([facility]) 87883985 Depressive disorder Depressive Disorder Problem 1 06:17:39 PM EDT [place] ([facility]) 36212274 Viral hepatitis C Viral Hepatitis C Problem 07/03/2020 06:17:39 PM EDT [place] ([facility]) Z82.79 Family history of other alexander enital malformations, deformations and chromosomal abnormalities Family history of other congenital malfo rmations, deformations and chromosomal abnormalities Diagnosis 09/06/2019 11:02: 00 AM [facility] Results ID Date Data Source [id number] 08/30/2020 12:00:00 AM EST [facility] Name Value Range Interpretation Code Description Data Rashmi rce(s) Supporting Document(s) SARS-CoV-2 (COVID-19) RNA [Presence] in Respiratory specimen by [facility] with probe detection [facility] This lab was ordered by [facility] and reported by [facility]. ID Date Data Source [id number] 08/04/2020 10:55:00 AM EST [place] ([facility]) Name Value Range Interpretation Code Description Data Rashmi rce(s) Supporting Document(s) PSA total 0.3 NG/mL 0.0-4.0 normal PSA Total [facility] ([facility]) PSA comment . normal PSA Comment [facility] ([facility]) ID Date Data Source [id number] 08/04/2020 10:55:00 [facility] Name Value Range Interpretation Code Description Data Rashmi rce(s) Supporting Document(s) Hemoglobin A1c/Hemoglobin.total in Blood 10.3 % normal Hemoglobin a1C [facility] ([facility]) estimated average glucose 249 mg/dL 60-110 Above high norm al Estimated Average Glucose [facility]) ID Date Data Source [id number] 08/04/2020 10:55:00 AM EST [facility] Name Value Range Interpretation Code Description Data Rashmi rce(s) Supporting Document(s) total 25(oh) vitamin D 11.6 NG/mL 30.0-100.0 Below low normal T otal 25(Oh) Vitamin D [facility]) ID Date Data Source [id number] 08/04/2020 10:55:00 AM [facility] Name Value Range Interpretation Code Description Data Rashmi rce(s) Supporting Document(s) thyroid stimulating hormone 3.340 uIU/mL 0.358-3.740 normal Thyroid Stimulating Hormone [place] ([facility]) free T4 1.20 NG/dL 0.76-1.46 normal Free T4 [facility] ([facility]) ID Date Data Source [id number] 08/04/2020 10:55:00 AM EST [place] ([facility]) Name Value Range Interpretation Code Description Data Rashmi rce(s) Supporting Document(s) cholesterol level 205 mg/dL <200 Above high normal Cholesterol Level [place] ([facility]) Cholesterol in LDL [Mass/volume] in Serum or Plasma 106 mg/dL <100 Above high normal LDL Cholesterol [facility] ([facility]) HDL cholesterol 32 mg/dL >40 Below low normal HDL Cholestero l [place] ([facility]) triglycerides level 334 mg/dL <150 Above high normal Triglycer ides Level [place] ([facility]) non-HDL-C 173 mg/dL normal Non-hdl-c [place] ([facility]) cholesterol risk ratio <5 Above high normal Choles terol Risk Ratio [facility] ([facility]) ID Date Data Source [id number] 08/04/2020 10:55:00 AM EST [place] ([facility]) Name Value Range Interpretation Code Description Data Rashmi rce(s) Supporting Document(s) blood urea nitrogen 12 mg/dL 7-18 normal Blood Urea Nitro gen [place] ([facility]) glucose, fasting 200 mg/dL 70-100 Above high normal Glucose, Fas ting [place] ([facility]) creatinine for GFR 1.37 mg/dL 0.70-1.30 Above high normal Creatinine for GFR [facility] ([facility]) glomerular filtration rate >56 normal Glomerula r Filtration Rate [facility] ([facility]) sodium level 139 mEq/L 136-145 normal Sodium Level [facility] ([facility]) potassium serum 4.7 mEq/L 3.5-5.1 normal Potassium Serum ATHE NA ([facility]) carbon dioxide level 30 mEq/L 21-32 normal Carbon Dioxide Level [facility] ([facility]) chloride level 106 mEq/L 98-107 normal Chloride Level [place] ([facility]) anion gap 3 mEq/L 8-16 Below low normal Anion Gap [facility] ( [facility]) ALT/SGPT 44 U/L 12-78 normal ALT/SGPT [place] ([facility]) AST/SGOT 11 U/L 7-37 normal AST/SGOT [facility] ([facility]) calcium level 9.5 mg/dL 8.5-10.1 normal Calcium Level [place] ( [facility]) albumin 4.0 gm/dL 3.2-5.2 normal Albumin [facility] ([facility]) alkaline phosphatase 130 U/L 45-117 Above high normal Alkaline Phosphatase [facility] ([facility]) total protein 7.6 gm/dL 6.4-8.2 normal Total Protein GILMER ( [facility]) bilirubin,total 0.9 mg/dL 0.2-1.0 normal Bilirubin,total ATHE ([facility]) albumin/globulin ratio normal Albumin/globu heber Ratio GILMER ([facility]) ID Date Data Source [id number] 08/04/2020 10:55:00 AM EST G[place] ([facility]) Name Value Range Interpretation Code Description Data Rashmi rce(s) Supporting Document(s) white blood count 5.7 10 4.0-10.0 normal White Blood Count GILMER ([facility]) red blood count 5.30 10 4.30-6.10 normal Red Blood Count ATHE ([facility]) hemoglobin 16.5 g/dL 13.5-17.5 normal Hemoglobin GILMER ([facility]) hematocrit 49.2 % 42.0-52.0 normal Hematocrit GILMER ([facility]) mean corpuscular hemoglobin 31.1 pg 27.0-33.0 normal Mean Corpuscular Hemoglobin GILMER ([facility]) mean corpuscular volume 92.8 fL 80.0-96.0 normal Mean Corpusc ular Volume GILMER ([facility]) mean corpuscular HGB conc 33.5 g/dL 32.0-36.5 normal Mean Corpu scular HGB Conc IRVINE ([facility]) red cell distribution width 12.3 % 11.5-14.5 normal Red Cell Distribution Width IRVINE ([facility]) mono % 13.4 % 0.0-5.0 Above high normal [place] % GILMER ([facility]) neutrophils % 54.7 % 36.0-66.0 normal Neutrophils % IRVINE ( [facility]) lymph % 27.2 % 24.0-44.0 normal Lymph % IRVINE ([facility]) platelet count, automated 159 10 150-450 normal Platelet C ount, Automated IRVINE ([facility]) eos % 3.9 % 0.0-3.0 Above high normal Eos % IRVINE ([facility]) baso % 0.4 % 0.0-1.0 normal Baso % IRVINE ([facility]) immature granulocyte % 0.4 % 0-3.0 normal Immature Gran ulocyte % IRVINE ([facility]) neutrophils # 3.1 10 1.5-8.5 normal Neutrophils # IRVINE ( [facility]) nucleated red blood cell % 0.0 % 0-0 normal Nucleated Red Blood Cell % IRVINE ([facility]) mono # 0.8 10 0.0-0.8 normal [place] # IRVINE ([facility]) lymph # 1.5 10 1.5-5.0 normal Lymph # GILMER ([facility]) baso # 0.0 10 0.0-0.2 normal Baso # IRVINE ([facility]) eos # 0.2 10 0.0-0.5 normal Eos # GIL[place] ([facility]) ID Date Data Source [id number] 09/25/2019 02:13:59 PM EST [facility] In-House Blood TestsDate/Time Colle cted: September 25, 2019 2:15 PMTest Result Reference Range Normal ValueComments: blood draw done in offcie done in the left ac tolerated well Michel Craig MA, September 25, 2019 2:15 PMAssessment & Plan Orders:[id number] Vst-Est Level I [CPT-88235] 18546 - Venipuncture [CPT-89616] Name Value Range Interpretation Code Description Data Rashmi rce(s) Supporting Document(s) ID Date Data Source [id number] 09/25/2019 10:05:00 AM EST [facility] Name Value Range Interpretation Code Description Data Rashmi rce(s) Supporting Document(s) VIT D25 TOT 12.2 ng/mL 30.0-100.0 L [facility] BG FASTING 181 mg/dL 70-100 H [facility] T4, FREE 1.24 ng/dL 0.76-1.46 N [facility] TSH 3.610 microintl units/mL 0.358-3.740 N [facility] ID Date Data Source [id number] 09/25/2019 10:05:00 AM [facility] Name Value Range Interpretation Code Description Data Rashmi rce(s) Supporting Document(s) HCT 48.0 % 42.0-52.0 N [facility] HGB 15.3 g/dL 13.5-17.5 N [facility] MCH 31.9 G/DL pg 32.0-36.5 L [facility] MCHC 29.7 PG % 27.0-33.0 [facility] PLATELETS 144 10 10*3/mm3 150-450 L [facility] RBC 5.15 10 10*6/mm3 4.30-6.10 [facility] RDW 12.6 % 11.5-14.5 [facility] WBC TOTAL 4.9 4.0-10.0 [facility] ID Date Data Source [id number] 09/25/2019 10:05:00 AM [facility] Name Value Range Interpretation Code Description Data Rashmi rce(s) Supporting Document(s) HGBA1C 8.4 % N [facility] ID Date Data Source [id number] 09/06/2019 01:54:08 PM EST [facility] Name Value Range Interpretation Code Description Data Rashmi rce(s) Supporting Document(s) Progress Note [facility] [id number] lbm [file] [id number] ID Date Data Source [id number] 10/11/2019 04:59:00 PM [facility] Molecular Genetics ReportName: MOLINA, ASHANTI IEMRN: [id number] Number: [id number] Date: 09/06/2019 00:00Received Date: 09/06/2019 15:07Physician(s): ED,DEFAULT TEST JEANGOPIHALEIGHJUANIS Hermosillo(s) ReceivedA: Peripheral Blood-Invita for FANCA and NF-1TYPE OF STUDY: FANCA AND NF1 GENESCOMMENTS: A peripheral blood sample for [place] [address] for analysis. Please see link for scanned external report.JMP/ab Electronically Signed By Kendall Grace, Ph.D., [facility], [facility] MolecularGeneticist 10/11/2019 16:59:24 Name Value Range Interpretation Code Description Data Rashmi rce(s) Supporting Document(s) Procedure Social History Code Duration Value Status Description Data Source(s ) Smoking 09/06/2019 12:00:00 AM EST Unknown if ever smoked comp leted Unknown if ever smoked [facility] Vital Signs ID Date Data Source UNK Name Value Range Interpretation Code Description Data Source(s) Body weight 2726 [oz_av] 2726 [oz_av] [place] ([facility]) Systolic blood pressure 162 mm[Hg] 162 mm[Hg] A [facility]) Systolic blood pressure 135 mm[Hg] 135 mm[Hg] A [facility]) Body mass index (BMI) [Ratio] 25.9 kg/m2 25.9 k g/m2 [place] ([facility]) Body height 68 [in_i] 68 [in_i] [place] ([facility]) Diastolic blood pressure 100 mm[Hg] 100 mm[Hg] [place] ([facility]) Diastolic blood pressure 91 mm[Hg] 91 mm[Hg] [place] ([facility]) Body weight 2697.6 [oz_av] 2697.6 [oz_av] ATHEN A ([facility]) Systolic blood pressure 119 mm[Hg] 119 mm[Hg] A [facility]) Body mass index (BMI) [Ratio] 25.6 kg/m2 25.6 k g/m2 G[place] ([facility]) Body height 68 [in_i] 68 [in_i] [place] ([facility]) Diastolic blood pressure 79 mm[Hg] 79 mm[Hg] [place] ([facility]) Body weight 2697.6 [oz_av] 2697.6 [oz_av] ATHEN A ([facility]) Systolic blood pressure 119 mm[Hg] 119 mm[Hg] A THENA ([facility]) Body mass index (BMI) [Ratio] 25.6 kg/m2 25.6 k g/m2 G[place] ([facility]) Body height 68 [in_i] 68 [in_i] [place] ([facility]) Diastolic blood pressure 79 mm[Hg] 79 mm[Hg] [place] ([facility]) Patient Treatment Plan of Care Planned Activity Planned Date Details Description Data Source (s) Metformin hydrochloride 500 MG Oral Tablet GILMER ([facility]) atorvastatin 10 MG Oral Tablet GILMER ([facility]) atorvastatin 10 MG Oral Tablet GILMER ([facility])
[2020-10-30] MEDS ORDERED: ATOR1TAB21 PO (20:33)
[2020-10-30] MEDS ORDERED: IBUP1TAB7 PO (20:37)
[2020-10-30] MEDS ORDERED: ATORVASTATIN 20 MG TAB PO SCH (21:00)
[2020-10-30] MEDS ORDERED: NS 1,000 ML IV ONE (21:15)
[2020-10-30 21:27] LABS: BASO % 0.4 % (0.0-1.0); EOS # 0.4 10^3/uL (0.0-0.5); EOS % 4.8 % (0.0-3.0); HEMATOCRIT 43.7 % (42.0-52.0); HEMOGLOBIN 14.1 g/dl (13.5-17.5); LYMPH # 1.8 10^3/uL (1.5-5.0); LYMPH % 22.6 % (24.0-44.0); MEAN CORPUSCULAR HEMOGLOBIN 30.4 pg (27.0-33.0); MEAN CORPUSCULAR HGB CONC 32.3 g/dl (32.0-36.5); MEAN CORPUSCULAR VOLUME 94.2 fl (80.0-96.0); MONO # 0.9 10^3/uL (0.0-0.8); MONO % 11.5 % (0.0-5.0); NEUTROPHILS # 4.8 10^3/uL (1.5-8.5); NEUTROPHILS % 60.4 % (36.0-66.0); PLATELET COUNT, AUTOMATED 141 10^3/uL (150-450); RED BLOOD COUNT 4.64 10^6/uL (4.30-6.10); WHITE BLOOD COUNT 7.9 10^3/uL (4.0-10.0)
[2020-10-30] MEDS ORDERED: CARVedilol 12.5 MG TAB PO ONE (21:30)
[2020-10-30] MEDS ORDERED: MORPHINE 4 MG/ML 1ML VIAL/SYRINGE (J2270) IV ONE ×2 (21:30→23:15)
[2020-10-30 22:05] LABS: ALBUMIN 3.9 GM/DL (3.2-5.2); BILIRUBIN,DIRECT 0.1 MG/DL (0.0-0.2); BILIRUBIN,TOTAL 0.5 MG/DL (0.2-1.0); CALCIUM LEVEL 9.7 MG/DL (8.5-10.1); CK-MB VALUE MASS 1.3 NG/ML (<3.6); CREATININE FOR GFR 1.55 MG/DL (0.70-1.30); MB/CK RELATIVE INDEX 1.02 (< OR =4); POTASSIUM SERUM 4.9 MEQ/L (3.5-5.1); TOTAL PROTEIN 7.7 GM/DL (6.4-8.2); TROPONIN I 0.02 NG/ML (< 0.10)
[2020-10-30] MEDS ORDERED: ISOVUE-370 76% 100ML VIAL As Ordered ONE (22:13)
--- OUTSIDE RECORDS SUMMARY | 2020-10-30 23:38 | CCD ---
Author Author [facility] Address Unknown Phone Unavailable Care Team Providers Care Heel Cover Splitter Name Role Phone ALIASES , DEFAULT / [...] PROVIDER * Unavailable Unavailable Tha, Gisele Humera TELEVISION INSTALLER HELPER Unavailable Unavailable Tha, A Humera TELEVISION INSTALLER HELPER Unavailable Unavailable Tha, A Humera TELEVISION INSTALLER HELPER Unavailable Unavailable Sharps, A Humera TELEVISION INSTALLER HELPER Unavailable Unavailable Sharps, A Humera TELEVISION INSTALLER HELPER Unavailable Unavailable Sharps, A Humera TELEVISION INSTALLER HELPER Unavailable Unavailable Sharps, A Humera TELEVISION INSTALLER HELPER Unavailable Unavailable Sharps, A Humera TELEVISION INSTALLER HELPER Unavailable Unavailable Sharps, A Humera TELEVISION INSTALLER HELPER Unavailable Unavailable Sharps, A Humera TELEVISION INSTALLER HELPER Unavailable Unavailable Sharps, A Humera TELEVISION INSTALLER HELPER Unavailable Unavailable Sharps, A Humera TELEVISION INSTALLER HELPER Unavailable Unavailable Sharps, A Humera TELEVISION INSTALLER HELPER Unavailable Unavailable Sharps, A Humera TELEVISION INSTALLER HELPER Unavailable Unavailable Sharps, A Humera TELEVISION INSTALLER HELPER Unavailable Unavailable Sharps, A Humera TELEVISION INSTALLER HELPER Unavailable Unavailable Sharps, A Humera TELEVISION INSTALLER HELPER Unavailable Unavailable Sharps, A Humera TELEVISION INSTALLER HELPER Unavailable Unavailable Sharps, A Humera TELEVISION INSTALLER HELPER Unavailable Unavailable Sharps, A Humera TELEVISION INSTALLER HELPER Unavailable Unavailable Sharps, A Humera TELEVISION INSTALLER HELPER Unavailable Unavailable Sharps, A Humera TELEVISION INSTALLER HELPER Unavailable Unavailable Sharps, A Humera TELEVISION INSTALLER HELPER Unavailable Unavailable Sharps, A Humera TELEVISION INSTALLER HELPER Unavailable Unavailable Sharps, A Humera TELEVISION INSTALLER HELPER Unavailable Unavailable Sharps, A Humera TELEVISION INSTALLER HELPER Unavailable Unavailable Sharps, A Humear TELEVISION INSTALLER HELPER Unavailable Unavailable Sharps, A Humera TELEVISION INSTALLER HELPER Unavailable Unavailable Sharps, Humera TELEVISION INSTALLER HELPER TELEVISION INSTALLER HELPER Unavailable Unavailable Sharps, A Humera TELEVISION INSTALLER HELPER Unavailable Unavailable Sharps, A Humera TELEVISION INSTALLER HELPER Unavailable Unavailable Sharps, A Humera TELEVISION INSTALLER HELPER Unavailable Unavailable Sharps, A Humera TELEVISION INSTALLER HELPER Unavailable Unavailable Sharps, A Humera TELEVISION INSTALLER HELPER Unavailable Unavailable Sharps, A Humera TELEVISION INSTALLER HELPER Unavailable Unavailable Sharps, A Humera TELEVISION INSTALLER HELPER Unavailable Unavailable Sharps, A Humera TELEVISION INSTALLER HELPER Unavailable Unavailable Sharps, A Humera TELEVISION INSTALLER HELPER Unavailable Unavailable Sharps, A Humera TELEVISION INSTALLER HELPER Unavailable Unavailable Sharps, A Humera TELEVISION INSTALLER HELPER Unavailable Unavailable Sharps, A Humera TELEVISION INSTALLER HELPER Unavailable Unavailable Sharps, A Humera TELEVISION INSTALLER HELPER Unavailable Unavailable Sharps, A Humera TELEVISION INSTALLER HELPER Unavailable Unavailable Sharps, A Humera TELEVISION INSTALLER HELPER Unavailable Unavailable Sharps, A Humera TELEVISION INSTALLER HELPER Unavailable Unavailable Sharps, A Humera TELEVISION INSTALLER HELPER Unavailable Unavailable Sharps, A Humera TELEVISION INSTALLER HELPER Unavailable Unavailable Sharps, A Humera TELEVISION INSTALLER HELPER Unavailable Unavailable Sharps, A Humera TELEVISION INSTALLER HELPER Unavailable Unavailable Sharps, A Humera TELEVISION INSTALLER HELPER Unavailable Unavailable Sharps, A Humera TELEVISION INSTALLER HELPER Unavailable Unavailable Sharps, A Humera TELEVISION INSTALLER HELPER Unavailable Unavailable Sharps, A Humera TELEVISION INSTALLER HELPER Unavailable Unavailable Tha, A Humera TELEVISION INSTALLER HELPER Unavailable Unavailable Tha, A Humera TELEVISION INSTALLER HELPER Unavailable Unavailable Tha, A Humera TELEVISION INSTALLER HELPER Unavailable Unavailable Tha, A Humera TELEVISION INSTALLER HELPER Unavailable Unavailable Re-disclosure Warning The records that [...] is protected by Article 27-F of the [facility] Public Health law. If you continue you may have access to information: Regarding HIV / AIDS; Provided by facilities licensed or operated by the [facility] Office of Mental Health; or Provided by the [facility] Office for People With Developmental Disabilities. If such information is present, then the following [facility] mandated warning applies: This information has been [...] law may result in a fine or custodial sentence or both. A general authorization for the release of medical or other information is NOT sufficient authorization for further disc losure. Allergies and Adverse Reactions Type Description Substance Reaction Status Data Source(s ) Allergy to substance Allergy to substance Allergy to substance [facility] ([facility]) Family History Family Member Name Family Member Gender Family Member Status Date o f Status Description Data Source(s) Unknown Male Problem [facility] ([facility]) () Unknown Unknown Problem [facility] ([facility]) Unknown Unknown Problem [facility] ([facility]) Unknown Unknown Problem [facility] ([facility]) Encounters Encounter Providers Location Date Indications Data Source(s ) O 10/30/2020 07:13:52 PM EST [facility] ([facility]) [facility] [address], [place] [address], Ph. Att[facility]: [facility] 08/11/2020 12:00:00 AM EST [facility] ([facility]) [facility] [address], [place] [address], Ph. Attender: Humera Almazan [facility] Medical 08/04/2020 12:00:00 AM EST [place] ([facility]) NORBERTO Zaragoza: [address], [place] [address], Ph. Attender: [facility] 07/23/2020 12:00:00 AM EST [place] ([facility]) [facility] [address], [place] [address], Ph. Attender: Humera Almazan [facility] Medical 07/23/2020 12:00:00 AM EST [place] ([facility]) Outpatient Attender: BARBARA JIMENEZ 06/24/2020 05:23:00 P M EDT [facility] Outpatient Attender: Humera JIMENEZ 05/28/2020 07:0 1:02 PM EDT [facility] Outpatient Attender: BARBARA SHAVER 03/14/2020 09:02:01 A M EDT [facility] Outpatient Attender: BARBARA JIMENEZ 03/14/2020 09:01:00 A M EDT [facility] Outpatient Attender: Humera JIMENEZ 03/05/2020 06:3 9:01 PM EDT [facility] Outpatient Attender: Humera JIMENEZ FP 01/30/2020 10:4 0:02 AM EDT [facility] Outpatient Attender: BARBARA JIMENEZ FP 01/28/2020 12:56:01 P M EDT [facility] Outpatient Attender: BARBARA BARBOZAP FP 01/16/2020 02:54:00 P M EDT [facility] Outpatient Attender: BARBARA BARBOZAP FP 12/07/2019 04:11:00 P M EDT [facility] Outpatient Attender: BARBARA BARBOZAP FP 11/26/2019 09:01:04 P M EDT [facility] Outpatient Attender: Humera JIMENEZ FP 11/05/2019 03:4 1:01 PM [facility] Outpatient Attender: Humera JIMENZE FP 10/01/2019 09:0 7:01 PM [facility] Outpatient Attender: BARBARA BARBOZAP FP 10/01/2019 09:07:00 P M [facility] Outpatient Attender: BARBARA BARBOZAP FP 10/01/2019 09:06:01 P M [facility] Outpatient Attender: Humera JIMENEZ FP 10/01/2019 09:0 6:01 PM [facility] Outpatient Attender: Humera JIMENEZ FP 10/01/2019 09:0 5:02 PM [facility] Outpatient Attender: BARBARA BARBOZAP FP 10/01/2019 09:05:02 P M [facility] Outpatient Attender: Humera JIMENEZ FP 09/27/2019 03:4 4:01 PM [facility] Outpatient Attender: Humera BARBOZAP FP 09/26/2019 10:2 1:59 PM [facility] Outpatient Attender: Humera JIMENEZ FP 09/25/2019 09:5 9:02 AM [facility] Outpatient Attender: BARBARA JIMENEZ FP 09/17/2019 11:51:00 A M [facility] Outpatient Admitter: DEFAULT / GENE [place] / UNKNOWN PROVIDER ALIASES [id number]-[id number] 09/06/2019 12:00:00 AM EST Family histor y of other congenital malformations, deformations and chromosomal abnormalities [facility] Family history of other congenital malfo [...] atorvastati n 10 MG Oral Tablet [facility] ([facility]) atorvastatin 10 MG Oral Tablet atorvasta tin 10 mg tablet TAKE ONE TABLET BY MOUTH DAILY AT BEDTIME atorvastatin 10 mg tablet TAKE ONE TABLE T BY MOUTH DAILY AT BEDTIME completed atorvastati n 10 MG Oral Tablet [facility] ([facility]) Metformin hydrochloride 500 MG Oral Tablet metformin 5 00 mg tablet metformin 500 mg tablet completed metformin hy drochloride 500 MG Oral Tablet [place] ([facility]) Insurance Providers Payer name Policy type / Coverage type Policy ID Covered alliance party ID Covered alliance party's relationship to foster Policy Foster Plan Information [facility] [employer] Co. [id number] Self [id number] [facility] PLAN [facility] [id number] SP [id number] SELF PAY ONLY [id number] SP [id number] Managed Care - [facility] Community Plan P [id number] S [id number] Medicaid S [id number] S [id number] Managed Care [facility] Plan P [id number] S [id number] Managed Care [facility] Plan S [id number] S [id number] [facility] Health Care P [id number] S [id number] [facility] HEALTHCARE [id number] SP [id number] CIGNA HEALTHCARE [id number] SP U [id number] [facility] Health Care P [id number] S [id number] [facility] I [id number] Self [id number] Medicaid O [id number] S [id number] Managed Care - Community Plan [facility] S [id number] S [id number] [facility] [id number] SP [id number] Managed Care - Community Plan [facility] S [id number] S [id number] Medicaid O [id number] S [id number] [facility] Health Care P [id number] S [id number] CIGNA HE[employer]CARE [id number] SP U [id number] C[employer] HE[employer] O [id number] S U [id number] [facility] O [id number] S [id number] Self Pay P UNAVAILABLE S UNAVAILA BLE Managed Care - Community Plan [employer] P [id number] S [id number] Medicaid S [id number] S [id number] [facility] COMMUNTY PLAN [id number] 18 [id number] [facility] COMMUNITY PLAN [place] [id number] 18 [id number] [facility] Communty Plan Medicaid [id number] Self [id number] [facility] Community Plan Commercial [id number] Self [id number] CIGNA HEALTHCARE [id number] 18 U [id number] [facility] - [id number] 18 [id number] [facility]/Community [facility] Health Maintenance Organization (O) [id number] Self [id number] C[employer]/Conn [employer] Commercial [id number] Self [id number] [facility] Community Plan Medicaid [id number] Self [id number] [facility] Commercial [id number] Self [id number] [facility] [id number] 18 [id number] [facility] [id number] 18 [id number] [facility] Community Plan Medicaid [id number] Self [id number] [facility] Community Plan Medicaid [id number] Self [id number] [facility] Community Plan Medicaid [id number] Self [id number] [facility] Health Maintenance Organization (HMO) [id number] Self [id number] [employer] Commercial [id number] Self [id number] [facility] Community Plan Medicaid [id number] Self [id number] [facility] [id number] SP [id number] CIGNA HEALTHCARE [id number] SP U [id number] [facility] [id number] SP [id number] [facility]/Community [facility] Health Maintenance Organization (HMO) [id number] Self [id number] [facility] [id number] SP [id number] CIGNA/MVP/CONN GEN/PREFE O [id number] S [id number] [facility]) O [id number] S [id number] [facility] COMMUNITY PLAN MCDO [id number] SP [id number] CIGNA INSURANCE CO [id number] SP [id number] C[employer]/Conn [employer] Commercial Self United HLCR/Community [facility] Health Maintenance Organization (HMO) Self [facility] [id number] SP [id number] BLUE CROSS PANCHAL PLAN [id number] SP [id number] Managed Care BCBS O [id number] S [id number] Managed Care - Community Plan [facility] P [id number] S [id number] Managed Care BCBS O UNAVAILABLE S UNAVAILABLE HMO BLUE [id number] SP [id number] Problems, Conditions, and Diagnoses Code Display Name Description Problem Type Effective Dates Data Source(s) [id number] Clinical finding Clinical Finding Problem 07/03/2020 06 :17:39 PM EDT [facility] ([facility]) [id number] Viral hepatitis A without hepatic coma V iral Hepatitis a without Hepatic Coma Problem 07/03/2020 06:17:39 PM EDT [facility]) [id number] Clinical finding Clinical Finding Problem 07/03/2020 06 :17:39 PM EDT [facility] ([facility]) [id number] Depressive disorder Depressive Disorder Problem 1 06:17:39 PM EDT [facility] ([facility]) [id number] Viral hepatitis C Viral Hepatitis C Problem 07/03/2020 06:17:39 PM EDT [facility] ([facility]) [id number] Clinical finding Clinical Finding Problem 07/03/2020 06 :17:39 PM EDT [facility] ([facility]) 422127176 Viral hepatitis A without hepatic coma V iral Hepatitis a without Hepatic Coma Problem 07/03/2020 06:17:39 PM EDT [facility] ([facility]) [id number] Clinical finding Clinical Finding Problem 07/03/2020 06 :17:39 PM EDT [facility]) 83815145 Depressive disorder Depressive Disorder Problem 1 06:17:39 PM EDT [place] ([facility]) 31806976 Viral hepatitis C Viral Hepatitis C Problem 07/03/2020 06:17:39 PM EDT [facility]) Z82.79 Family history of other alexander enital malformations, deformations and chromosomal abnormalities Family history of other congenital malfo rmations, deformations and chromosomal abnormalities Diagnosis 09/06/2019 11:02: 00 AM [facility] Results ID Date Data Source [id number] 08/30/2020 12:00:00 AM EST [facility] Name Value Range Interpretation Code Description Data Rashmi rce(s) Supporting Document(s) SARS-CoV-2 (COVID-19) RNA [Presence] in Respiratory specimen by [facility] with probe detection [facility] This lab was ordered by [facility] and reported by [facility]. ID Date Data Source [id number] 08/04/2020 10:55:00 AM EST [facility]) Name Value Range Interpretation Code Description Data Rashmi rce(s) Supporting Document(s) PSA total 0.3 NG/mL 0.0-4.0 normal PSA Total [facility]) PSA comment . normal PSA Comment [facility] ([facility]) ID Date Data Source [id number] 08/04/2020 10:55:00 AM EST [facility]) Name Value Range Interpretation Code Description Data Rashmi rce(s) Supporting Document(s) Hemoglobin A1c/Hemoglobin.total in Blood 10.3 % normal Hemoglobin a1C [facility]) estimated average glucose 249 mg/dL 60-110 Above high norm al Estimated Average Glucose [facility]) ID Date Data Source [id number] 08/04/2020 10:55:00 AM EST [facility]) Name Value Range Interpretation Code Description Data Rashmi rce(s) Supporting Document(s) total 25(oh) vitamin D 11.6 NG/mL 30.0-100.0 Below low normal T otal 25(Oh) Vitamin D [facility]) ID Date Data Source [id number] 08/04/2020 10:55:00 AM EST [place] ([facility]) Name Value Range Interpretation Code Description Data Rashmi rce(s) Supporting Document(s) thyroid stimulating hormone 3.340 uIU/mL 0.358-3.740 normal Thyroid Stimulating Hormone [facility] ([facility]) free T4 1.20 NG/dL 0.76-1.46 normal Free T4 [facility] ([facility]) ID Date Data Source [id number] 08/04/2020 10:55:00 AM EST [facility] ([facility]) Name Value Range Interpretation Code Description Data Rashmi rce(s) Supporting Document(s) cholesterol level 205 mg/dL <200 Above high normal Cholesterol Level [facility] ([facility]) Cholesterol in LDL [Mass/volume] in Serum or Plasma 106 mg/dL <100 Above high normal LDL Cholesterol [facility] ([facility]) HDL cholesterol 32 mg/dL >40 Below low normal HDL Cholestero l [facility] ([facility]) triglycerides level 334 mg/dL <150 Above high normal Triglycer ides Level [facility] ([facility]) non-HDL-C 173 mg/dL normal Non-hdl-c [facility] ([facility]) cholesterol risk ratio <5 Above high normal Choles terol Risk Ratio [facility] ([facility]) ID Date Data Source [id number] 08/04/2020 10:55:00 AM EST [facility] ([facility]) Name Value Range Interpretation Code Description Data Rashmi rce(s) Supporting Document(s) blood urea nitrogen 12 mg/dL 7-18 normal Blood Urea Nitro gen [facility] ([facility]) glucose, fasting 200 mg/dL 70-100 Above high normal Glucose, Fas ting [facility] ([facility]) creatinine for GFR 1.37 mg/dL 0.70-1.30 Above high normal Creatinine for GFR [facility] ([facility]) glomerular filtration rate >56 normal Glomerula r Filtration Rate [facility] ([facility]) sodium level 139 mEq/L 136-145 normal Sodium Level [facility] ([facility]) potassium serum 4.7 mEq/L 3.5-5.1 normal Potassium Serum [facility] ([facility]) carbon dioxide level 30 mEq/L 21-32 normal Carbon Dioxide Level [facility] ([facility]) chloride level 106 mEq/L 98-107 normal Chloride Level [facility] ([facility]) anion gap 3 mEq/L 8-16 Below low normal Anion Gap [facility] ( [facility]) ALT/SGPT 44 U/L 12-78 normal ALT/SGPT [facility] ([facility]) AST/SGOT 11 U/L 7-37 normal AST/SGOT [facility] ([facility]) calcium level 9.5 mg/dL 8.5-10.1 normal Calcium Level [facility] ( [facility]) albumin 4.0 gm/dL 3.2-5.2 normal Albumin [facility] ([facility]) alkaline phosphatase 130 U/L 45-117 Above high normal Alkaline Phosphatase [facility] ([facility]) total protein 7.6 gm/dL 6.4-8.2 normal Total Protein [facility] ( [facility]) bilirubin,total 0.9 mg/dL 0.2-1.0 normal Bilirubin,total [facility] ([facility]) albumin/globulin ratio normal Albumin/globu heber Ratio [facility] ([facility]) ID Date Data Source [id number] 08/04/2020 10:55:00 AM EST [facility] ([facility]) Name Value Range Interpretation Code Description Data Rashmi rce(s) Supporting Document(s) white blood count 5.7 10 4.0-10.0 normal White Blood Count [facility] ([facility]) red blood count 5.30 10 4.30-6.10 normal Red Blood Count [facility] ([facility]) hemoglobin 16.5 g/dL 13.5-17.5 normal Hemoglobin [facility] ([facility]) hematocrit 49.2 % 42.0-52.0 normal Hematocrit [facility] ([facility]) mean corpuscular hemoglobin 31.1 pg 27.0-33.0 normal Mean Corpuscular Hemoglobin [facility] ([facility]) mean corpuscular volume 92.8 fL 80.0-96.0 normal Mean Corpusc ular Volume [facility] ([facility]) mean corpuscular HGB conc 33.5 g/dL 32.0-36.5 normal Mean Corpu scular HGB Conc [facility] ([facility]) red cell distribution width 12.3 % 11.5-14.5 normal Red Cell Distribution Width [facility] ([facility]) mono % 13.4 % 0.0-5.0 Above high normal Steele % [facility] ([facility]) neutrophils % 54.7 % 36.0-66.0 normal Neutrophils % [place] ( [facility]) lymph % 27.2 % 24.0-44.0 normal Lymph % [place] ([facility]) platelet count, automated 159 10 150-450 normal Platelet C ount, Automated [place] ([facility]) eos % 3.9 % 0.0-3.0 Above high normal Eos % [facility] ([facility]) baso % 0.4 % 0.0-1.0 normal Baso % [place] ([facility]) immature granulocyte % 0.4 % 0-3.0 normal Immature Gran ulocyte % [facility] ([facility]) neutrophils # 3.1 10 1.5-8.5 normal Neutrophils # [facility] ( [facility]) nucleated red blood cell % 0.0 % 0-0 normal Nucleated Red Blood Cell % [facility] ([facility]) mono # 0.8 10 0.0-0.8 normal Steele # [place] ([facility]) lymph # 1.5 10 1.5-5.0 normal Lymph # [facility] ([facility]) baso # 0.0 10 0.0-0.2 normal Baso # [facility] ([facility]) eos # 0.2 10 0.0-0.5 normal Eos # [place] ([facility]) ID Date Data Source [id number] 09/25/2019 02:13:59 PM EST [facility] Labs In-House Blood TestsDate/Time Colle cted: September 25, 2019 2:15 PMTest Result Reference Range Normal ValueComments: blood draw done in offcie done in the left ac tolerated well Michel Craig SEPIDEH, September 25, 2019 2:15 PMAssessment & Plan Orders:30506-[id number] Vst-Est Level I [CPT-84953] 20696 - Venipuncture [CPT-87082] Name Value Range Interpretation Code Description Data Rashmi rce(s) Supporting Document(s) ID Date Data Source [id number] 09/25/2019 10:05:00 AM EST [facility] Name Value Range Interpretation Code Description Data Rashmi rce(s) Supporting Document(s) VIT D25 TOT 12.2 ng/mL 30.0-100.0 L [facility] BG FASTING 181 mg/dL 70-100 H [facility] Health T4, FREE 1.24 ng/dL 0.76-1.46 N [facility] y Health TSH 3.610 microintl units/mL 0.358-3.740 N [facility] ID Date Data Source [id number] 09/25/2019 10:05:00 AM EST [facility] Name Value Range Interpretation Code Description Data Rashmi rce(s) Supporting Document(s) HCT 48.0 % 42.0-52.0 N [facility] HGB 15.3 g/dL 13.5-17.5 N [facility] MCH 31.9 G/DL pg 32.0-36.5 L [facility] MCHC 29.7 PG % 27.0-33.0 [facility] PLATELETS 144 10 10*3/mm3 150-450 L [facility] RBC 5.15 10 10*6/mm3 4.30-6.10 N [facility] RDW 12.6 % 11.5-14.5 [facility] WBC TOTAL 4.9 4.0-10.0 N [facility] ID Date Data Source [id number] 09/25/2019 10:05:00 AM EST [facility] Name Value Range Interpretation Code Description Data Rashmi rce(s) Supporting Document(s) HGBA1C 8.4 % N [facility] ID Date Data Source [id number] 09/06/2019 01:54:08 PM EST [facility] Name Value Range Interpretation Code Description Data Rashmi rce(s) Supporting Document(s) Progress Note [facility] [id number] [file] [id number] ID Date Data Source [id number] 10/11/2019 04:59:00 PM EST [facility] Molecular Genetics ReportName: ASHANTI MOLINA IEMRN: [id number] Number: [id number] Date: 09/06/2019 00:00Received Date: 09/06/2019 15:07Physician(s): ED,DEFAULT TEST [place] PENA ASpecimen(s) ReceivedA: Peripheral Blood-[employer] for FANCA and NF-1TYPE OF STUDY: FANCA AND NF1 GENESCOMMENTS: A peripheral blood [place] [id number] [place]. Please see link for scanned external report.JMP/ab Electronically Signed By Kendall Grace, Ph.D., [facility], [facility] MolecularGeneticist 10/11/2019 16:59:24 Name Value Range Interpretation Code Description Data Rashmi rce(s) Supporting Document(s) Procedure Social History Code Duration Value Status Description Data Source(s ) Smoking 09/06/2019 12:00:00 AM EST Unknown if ever smoked comp leted Unknown if ever smoked [facility] Vital Signs ID Date Data Source UNK Name Value Range Interpretation Code Description Data Source(s) Body weight 2726 [oz_av] 2726 [oz_av] [facility] ([facility]) Systolic blood pressure 162 mm[Hg] 162 mm[Hg] A [facility]) Systolic blood pressure 135 mm[Hg] 135 mm[Hg] A [facility]) Body mass index (BMI) [Ratio] 25.9 kg/m2 25.9 k g/m2 [facility] ([facility]) Body height 68 [in_i] 68 [in_i] [facility] ([facility]) Diastolic blood pressure 100 mm[Hg] 100 mm[Hg] [facility] ([facility]) Diastolic blood pressure 91 mm[Hg] 91 mm[Hg] [place] ([facility]) Body weight 2697.6 [oz_av] 2697.6 [oz_av] ATHEN A ([facility]) Systolic blood pressure 119 mm[Hg] 119 mm[Hg] A [facility] ([facility]) Body mass index (BMI) [Ratio] 25.6 kg/m2 25.6 k g/m2 [facility] ([facility]) Body height 68 [in_i] 68 [in_i] [facility] ([facility]) Diastolic blood pressure 79 mm[Hg] 79 mm[Hg] [facility] ([facility]) Body weight 2697.6 [oz_av] 2697.6 [oz_av] ATHEN A ([facility]) Systolic blood pressure 119 mm[Hg] 119 mm[Hg] A [place] ([facility]) Body mass index (BMI) [Ratio] 25.6 kg/m2 25.6 k g/m2 [facility] ([facility]) Body height 68 [in_i] 68 [in_i] [facility] ([facility]) Diastolic blood pressure 79 mm[Hg] 79 mm[Hg] [facility] ([facility]) Patient Treatment Plan of Care Planned Activity Planned Date Details Description Data Source (s) Metformin hydrochloride 500 MG Oral Tablet [facility] ([facility]) atorvastatin 10 MG Oral Tablet [facility] ([facility]) atorvastatin 10 MG Oral Tablet [facility] ([facility])
--- NOTE | 2020-10-30 23:44 | REPVR ---
PROCEDURE INFORMATION: Exam: CT Abdomen And Pelvis With Contrast Exam date and time: 10/30/2020 10:58 PM Age: 55 years old Clinical indication: Abdominal pain; Localized; Right; Additional info: R flank pain elevated lipase TECHNIQUE: Imaging protocol: Computed tomography of the abdomen and pelvis with contrast. Radiation optimization: All CT scans at this facility use at least one of these dose optimization techniques: automated exposure control; mA and/or kV adjustment per patient size (includes targeted exams where dose is matched to clinical indication); or iterative reconstruction. Contrast material: ISOVUE 370; Contrast volume: 100 ml; Contrast route: INTRAVENOUS (IV); COMPARISON: RENAL US 11/08/2016 11:27 AM FINDINGS: Lungs: Subsegmental atelectasis in the right middle lobe. Liver: Lobulated contour of the liver. Multiple hypervascular nodular and segmental densities in the right hepatic lobe. Gallbladder and bile ducts: Normal. No calcified stones. No ductal dilation. Pancreas: Normal. No ductal dilation. Spleen: Normal. No splenomegaly. Adrenal glands: Normal. No mass. Kidneys and ureters: Mild right hydronephrosis. Stone in the mid right ureter measuring 6 x 5 x 7 mm. Multiple nonobstructing stones in the right kidney measuring up to 5 mm. No left hydronephrosis. Stomach and bowel: Moderate stool in the colon. No abnormal bowel dilatation. No abnormal bowel wall thickening. Negative for colonic diverticulitis. Appendix: Appendix is normal. Intraperitoneal space: Unremarkable. No free air. No significant fluid collection. Vasculature: Portal vein is patent. Lymph nodes: Multiple peripancreaticr nodes. Largest node is located superior to the pancreatic head measuring 1.8 x 1.2 cm. Urinary bladder: Unremarkable as visualized. Reproductive: Prostate is mildly enlarged. Bones/joints: Mild degenerative spine. No acute fracture. Soft tissues: Unremarkable. IMPRESSION: 1. Obstructive right uropathy the with mid ureteral stone. 2. Other nonobstructive renal stones in the right kidney. 3. Findings consistent with hepatic cirrhosis. 4. Multiple hypervascular nodular and segmental densities in the right hepatic lobe. Differential diagnosis includes malignancy versus arterial portal shunts. Recommend MRI with liver mass protocol further evaluation. Electronically signed by: Nimo Segura On 10/30/2020 23:44:46 PM
[2020-10-30] MEDS ORDERED: NS 1,000 ML IV SCH (23:52)
[2020-10-31] MEDS ORDERED: PRED10TA2 PO (00:20)
[2020-10-31] MEDS ORDERED: METF10004 PO (00:20)
[2020-10-31] MEDS ORDERED: ATOR1TAB21 PO (00:20)
[2020-10-31] MEDS ORDERED: VITMTA PO (00:20)
[2020-10-31] MEDS ORDERED: IBUP1TAB7 PO (00:20)
[2020-10-31 00:41] LABS: RSV AMPLIFICATION NEGATIVE (NEGATIVE)
[2020-10-31] MEDS ORDERED: ONDANSETRON 4MG/2ML VIAL IV PRN (01:30)
[2020-10-31] MEDS ORDERED: GLUCOSE 4GM CHEW TABLET PO PRN (01:45)
[2020-10-31] MEDS ORDERED: GLUCAGON INJ 1MG VIAL SC PRN (01:45)
[2020-10-31] MEDS ORDERED: DEXTROSE 50% 50 ML SYRINGE IV PRN (01:45)
--- NOTE | 2020-10-31 01:54 | HPEPDOC ---
General Date of Admission 10/31/2020 Date of Service: Oct 31, 2020 Chief Complaint The patient is a 55-year-old male admitted with a reason for visit of Blood In Urine. Source: Patient Exam Limitations: Language barrier Timing/Duration: Day(s) (1) Severity: Moderate Associated Symptoms: Nausea History of Present Illness Patient is a 55 yo male with PMH of nephrolithiasis presented to ED today due to Right flank pain which started while he was walking. Denies abdominal pain. Reported the right flank pain radiating to his right groin region. He reported the pain is constant , 10/10 pain. He reported having nausea and vomiting without hematemesis. Patient denies noticing blood in his urine. He reported no fever or chills. He had PMH of nephrolithiasis years ago, reported no surgery was done at that time. He denies any dysuria, urgency, frequency, retention. He reported that he has been urinating without problem. He reported he drinks 2-3 beers a day for about 30 years with last drink 2 weeks ago. He denies ever having alcohol withdrawl before. He denies any weight loss or jaundice. Home Medications Scheduled Atorvastatin Calcium (Atorvastatin Calcium) 20 Mg Tablet, 20 MG PO QHS, (Reported) Carvedilol (Carvedilol) 25 Mg Tab, 25 MG PO BID, (Reported) Lisinopril (Lisinopril) 40 Mg Tab, 40 MG PO DAILY, (Reported) Metformin HCl (Metformin HCl) 1,000 Mg Tablet, 1,000 MG PO BID, (Reported) Multivitamins (Thera M Plus Tablet) 1 Each Tablet, 1 TAB PO DAILY, (Reported) Scheduled PRN Ibuprofen (Ibuprofen) 800 Mg Tablet, 800 MG PO BID PRN for PAIN, (Reported) Prednisone (Prednisone) 10 Mg Tablet, 10 MG PO DAILY PRN for GOUT FLARE-UPS, (Reported) Allergies Coded Allergies: No Known Allergies (Unverified , 04/27/18) Past Medical History Medical History HTN DM type 2 Nephrolithiasis Surgical History Denies Family History Mother: breast cancer Father:" thrombosis of brain" Social History * Smoker: former Smoker (quit a month ago) Alcohol: other (quit a month ago) Drugs: denies Recent Travel/Sick Contacts: Denies: Recent travel, Recent sick contacts A-FIB/[facility] A-FIB History Current/History of A-Fib/PAF?: No Review of Systems Constitutional: Reports: Other (Denies decreased appetite); Denies: Chills, Fever ENT: Denies: Dysphagia Skin: Denies: Bruising Pulmonary: Denies: Dyspnea Cardiovascular: Denies: Chest Pain, Palpitations Gastrointestinal: Reports: Nausea, Vomiting; Denies: Abdominal Pain, Diarrhea, Constipation, Hematochezia Genitourinary: Denies: Dysuria, Frequency, Hematuria, Retention Hematologic: Denies: Bruising Endocrine: Denies: Polyuria Neurological: Denies: Weakness, Numbness Psych: Reports: Mood Normal Physical Examination General Exam: Positive: Alert, No Acute Distress Eye Exam: Positive: Conjunctiva & lids normal; Negative: Sclera icteric ENT Exam: Positive: Atraumatic, Mucous membr. moist/pink Neck Exam: Positive: Supple Chest Exam: Positive: Clear to auscultation, Normal air movement; Negative: Rales, Rhonchi, Wheezing Heart Exam: Positive: Rate Normal, Regular Rhythm, Normal S1, Normal S2 Abdomen Exam: Positive: Normal bowel sounds, Soft, Other (No guarding. No distension. No rebound tenderness); Negative: Tenderness Extremity Exam: Negative: Cyanosis, Edema, Swelling Skin Exam: Positive: Nl turgor and temperature Neuro Exam: Positive: Normal Tone Psych Exam: Positive: Mood NL, Memory Intact Other physical findings no CVA tenderness bilaterally Vital Signs Vital Signs Date Time Temp Pulse Resp B/P (MAP) Pulse Ox O2 Delivery O2 Flow Rate FiO2 10/30/20 23:43 18 10/30/20 23:23 96.5 10/30/20 22:19 69 10/30/20 22:15 152/84 (106) 10/30/20 22:00 98 10/30/20 21:27 Room Air Laboratory Data Labs 24H Laboratory Tests 2 10/30/20 21:17: Anion Gap 6L, Glomerular Filtration Rate 50.0L, Calcium Level 9.7, Total Bilirubin 0.5, Direct Bilirubin 0.1, Aspartate Amino Transf (AST/SGOT) 29, Alanine Aminotransferase (ALT/SGPT) 48, Alkaline Phosphatase 140H, Total Creatine Kinase 128, Creatine Kinase MB 1.3, Creatine Kinase MB Relative Index 1.02, Troponin I 0.02, Total Protein 7.7, Albumin 3.9, Albumin/Globulin Ratio 1.0, Lipase 1355H 10/30/20 21:18: Immature Granulocyte % (Auto) 0.3, Neutrophils (%) (Auto) 60.4, Lymphocytes (%) (Auto) 22.6L, Monocytes (%) (Auto) 11.5H, Eosinophils (%) (Auto) 4.8H, Basophils (%) (Auto) 0.4, Neutrophils # (Auto) 4.8, Lymphocytes # (Auto) 1.8, Monocytes # (Auto) 0.9H, Eosinophils # (Auto) 0.4, Basophils # (Auto) 0.0, Nucleated Red Blood Cells % (auto) 0.0, Urine Color YELLOW, Urine Appearance CLEAR, Urine pH 5.0, Urine Specific [place] 1.017, Urine Protein NEGATIVE, Urine Glucose (UA) NEGATIVE, Urine Ketones NEGATIVE, Urine Blood 3+H, Urine Nitrite NEGATIVE, Urine Bilirubin NEGATIVE, Urine Urobilinogen 0.2, Urine Leukocyte Esterase NEGATIVE, Urine WBC (Auto) 3, Urine RBC (Auto) 129H, Urine Hyaline Casts (Auto) 0, Urine Bacteria (Auto) NEGATIVE, Urine Squamous Epithelial Cells 0, Urine Mucus (Auto) SMALL, Urine Sperm (Auto) 10/30/20 23:54: Coronavirus (COVID-19)(PCR) NEGATIVE, Influenza Type A (RT-PCR) NEGATIVE, Influe nza Type B (RT-PCR) NEGATIVE, Respiratory Syncytial Virus (PCR) NEGATIVE CBC/BMP Laboratory Tests 10/30/20 21:17 10/30/20 21:18 Assessment/Plan 1. Obstructive right uropathy 2/2 mid ureteral stone -Mild right hydronephrosis noted on CT abd/pelvis. Patient voiced no urinary retention -IVF, Zofran, pain control -I&O, daily weight 2. Right nephrolithiasis -IVF, Zofran, pain control -I&O, daily weight 3. GUEVARA 2/2 obstructive uropathy -hold nephrotoxic agents -IVF -I&O, daily weight, follow up with BMP 3. Possible hepatic cirrhosis -CT findings suggestive of hepatic cirrhosis -Patient recently quit drinking alcohol, reported last drink was 2 week ago -No obvious jaundice noted. Consider outpatient follow up 4. Right hepatic nodules, ddx possible malignancy vs arterial portal shunts -CT abd/pelvis showed "multiple hypervascular nodular and segmental densities in right hepatic lobe". MRI with liver mass protocol ordered for morning. -AFP ordered 5. Hypertension -Continue home med Carvedilol. Hold Lisinopril -Vital signs 6. DM type 2 -hold home med Metformin -Glucose checks, insulin SS, hypoglycemia protocol 7. Possible pancreatitis -elevated lipase -patient denies epigastric abdominal pain but with nausea and vomiting. No CT evidence of pancreatitis. -S/p IVF bolus from ED. Will have patient on NPO for now, plan to advance diet as tolerated. IVF, zofran, pain control DVT prophylaxis: lovenox, SCD, TEDS Plan / VTE VTE Prophylaxis Ordered?: Yes GME ATTESTATION My faculty preceptor for this patient encounter was physically present during the encounter and was fully available. All aspects of the patient interview, examination, medical decision making process, and medical care plan development were reviewed and approved by the faculty preceptor. The faculty preceptor is aware and concurs with the plan as stated in the body of this note and will attest to such by his/her cosignature. ATTENDING NOTE I, Saul Wild DO, performed a history and physical examination of the patient and discussed his management with the resident, Carola Corona DO. I reviewed the resident's note and agree with the documented findings and plan of care. CAROLA CORONA DO Oct 31, 2020 01:54 SAUL WILD DO Oct 31, 2020 09:39
--- OUTSIDE RECORDS SUMMARY | 2020-10-31 01:57 | CCD ---
Author Author [facility] Address Unknown Phone Unavailable Care Team Providers Care Drafter Civil Name Role Phone ALIASES , DEFAULT / [...] PROVIDER * Unavailable Unavailable Tha, Gisele Humera ADVISOR [employer]ATE [employer] F[employer]ER Unavailable Unavailable Tha, A Humera ADVISOR [employer] F[employer]ER Unavailable Unavailable Tha, A Humera ADVISOR [employer]ATE [employer]ER Unavailable Unavailable [place], A Humera ADVISOR ADVOCATE [employer] F[employer]ER Unavailable Unavailable [place], A Humera ADVISOR AD[employer]ATE [employer] F[employer]ER Unavailable Unavailable [place], A Humera ADVISOR ADVOCATE [employer] F[employer]ER Unavailable Unavailable [place], A Humera ADVISOR AD[employer]ATE [employer] F[employer]ER Unavailable Unavailable [place], A Humera ADVISOR AD[employer]OCATE [employer] F[employer]ER Unavailable Unavailable [place], A Humera ADVISOR ADVOCATE [employer] F[employer]ER Unavailable Unavailable [place], A Humera ADVISOR AD[employer]ATE [employer] F[employer]ER Unavailable Unavailable [place], A Humera ADVISOR AD[employer]OCATE [employer] F[employer]ER Unavailable Unavailable [place], A Humera ADVISOR ADVOCATE [employer] F[employer]ER Unavailable Unavailable [place], A Humera ADVISOR ADVOCATE [employer] F[employer]ER Unavailable Unavailable [place], A Humera ADVISOR ADVOCATE [employer] F[employer]ER Unavailable Unavailable [place], A Humera ADVISOR ADVOCATE [employer] F[employer]ER Unavailable Unavailable [place], A Humera ADVISOR AD[employer]ATE [employer] F[employer]ER Unavailable Unavailable [place], A Humera ADVISOR ADVOCATE [employer] F[employer]ER Unavailable Unavailable [place], A Humera ADVISOR ADVOCATE [employer] F[employer]ER Unavailable Unavailable [place], A Humera ADVISOR ADVOCATE [employer] F[employer]ER Unavailable Unavailable [place], A Humera ADVISOR AD[employer]OCATE [employer] F[employer]ER Unavailable Unavailable [place], A Humera ADVISOR ADVOCATE [employer] F[employer]ER Unavailable Unavailable [place], A Humera ADVISOR ADVOCATE [employer] F[employer]ER Unavailable Unavailable [place], A Humera ADVISOR ADVOCATE [employer] F[employer]ER Unavailable Unavailable [place], A Humera ADVISOR ADVOCATE [employer] F[employer]ER Unavailable Unavailable [place], A Humera ADVISOR ADVOCATE [employer] F[employer]ER Unavailable Unavailable [place], A Humera ADVISOR ADVOCATE [employer] FOUNDER Unavailable Unavailable [place], A Humera ADVISOR ADVOCATE [employer] F[employer]ER Unavailable Unavailable [place], A Humera ADVISOR ADVOCATE [employer] FOUNDER Unavailable Unavailable [place], Humera ADVISOR ADVOCATE [employer] FOUNDER ADVISOR ADVOCATE [employer]GEL [employer] FOUNDER Unavailable Unavailable [place], A Humera ADVISOR ADVOCATE [employer] FOUNDER Unavailable Unavailable [place], A Humera ADVISOR ADVOCATE [employer] F[employer]ER Unavailable Unavailable [place], A Humera ADVISOR ADVOCATE [employer] F[employer]ER Unavailable Unavailable [place], A Humera ADVISOR ADVOCATE [employer] FOUNDER Unavailable Unavailable [place], A Humera ADVISOR ADVOCATE [employer] F[employer]ER Unavailable Unavailable [place], A Humera ADVISOR ADVOCATE [employer] FOUNDER Unavailable Unavailable [place], A Humera ADVISOR ADVOCATE [employer] FOUNDER Unavailable Unavailable [place], A Humera ADVISOR ADVOCATE [employer] FOUNDER Unavailable Unavailable [place], A Humera ADVISOR ADVOCATE [employer] FOUNDER Unavailable Unavailable [place], A Humera ADVISOR ADVOCATE [employer] FOUNDER Unavailable Unavailable [place], A Humera ADVISOR ADVOCATE [employer] FOUNDER Unavailable Unavailable [place], A Humera ADVISOR ADVOCATE [employer] FOUNDER Unavailable Unavailable [place], A Humera ADVISOR ADVOCATE [employer] FOUNDER Unavailable Unavailable [place], A Humera ADVISOR ADVOCATE [employer] FOUNDER Unavailable Unavailable [place], A Humera ADVISOR ADVOCATE [employer] FOUNDER Unavailable Unavailable [place], A Humera ADVISOR ADVOCATE [employer] FOUNDER Unavailable Unavailable [place], A Humera ADVISOR ADVOCATE [employer] FOUNDER Unavailable Unavailable [place], A Humera ADVISOR ADVOCATE [employer] F[employer]ER Unavailable Unavailable [place], A Humera ADVISOR ADVOCATE [employer] FOUNDER Unavailable Unavailable [place], A Humera ADVISOR ADVOCATE [employer] FOUNDER Unavailable Unavailable [place], A Humera ADVISOR ADVOCATE [employer] F[employer]ER Unavailable Unavailable [place], A Humera ADVISOR ADVOCATE [employer] F[employer]ER Unavailable Unavailable [place], A Humera ADVISOR ADVOCATE [employer] FOUNDER Unavailable Unavailable [place], A Humera ADVISOR ADVOCATE [employer] F[employer]ER Unavailable Unavailable Tha, A Humera ADVISOR ADVOCATE [employer] FOUNDER Unavailable Unavailable Tha, A Humera ADVISOR AD[employer]ATE [employer]ER Unavailable Unavailable Tha, A Humera ADVISOR AD[employer]OCATE [employer] F[employer]ER Unavailable Unavailable Tha, A Humera ADVISOR AD[employer]ATE [employer] F[employer]ER Unavailable Unavailable [place], T Sidra PA Unavailable Unavailable Feola, T Sidra PA Unavailable Unavailable [place]ola, T Sidra PA Unavailable Unavailable Feola, T Sidra PA Unavailable Unavailable [place], T Sidra PA Unavailable Unavailable [place]ola, T Sidra PA Unavailable Unavailable Feola, T Sidra PA Unavailable Unavailable Feola, T Sidra PA Unavailable Unavailable [place], T Sidra PA Unavailable Unavailable [place]ola, T Sidra PA Unavailable Unavailable [place]ola, T Sidra PA Unavailable Unavailable Feola, T Sidra PA Unavailable Unavailable [place]ola, T Sidra PA Unavailable Unavailable Feola, T Sidra PA Unavailable Unavailable Feola, T Sidra PA Unavailable Unavailable Feola, T Sidra PA Unavailable Unavailable Feola, T Sidra PA Unavailable Unavailable Feola, T Sidra PA Unavailable Unavailable Feola, T Sidra PA Unavailable Unavailable Feola, T Sidra PA Unavailable Unavailable Feola, T Sidra PA Unavailable Unavailable Feola, T Sidra PA Unavailable Unavailable [place]ola, T Sidra PA Unavailable Unavailable Feola, T Sidra PA Unavailable Unavailable Feola, T Sidra PA Unavailable Unavailable Feola, T Sidra PA Unavailable Unavailable Feola, T Sidra PA Unavailable Unavailable Feola, T Sidra PA Unavailable Unavailable Feola, T Sidra PA Unavailable Unavailable Feola, T Sidra PA Unavailable Unavailable Feola, T Sidra PA Unavailable Unavailable Feola, T Sidra PA Unavailable Unavailable Feola, T Sidra PA Unavailable Unavailable Feola, T Sidra PA Unavailable Unavailable [place]ola, T Sidra PA Unavailable Unavailable Feola, T Sidra PA Unavailable Unavailable Feola, T Sidra PA Unavailable Unavailable Re-disclosure Warning The records that [...] is protected by Article 27-F of the [facility] Public Health law. If you continue you may have access to information: Regarding HIV / AIDS; Provided by facilities licensed or operated by the [facility] Office of Mental Health; or Provided by the [facility] Office for People With Developmental Disabilities. If such information is present, then the following [facility] mandated warning applies: This information has been [...] law may result in a fine or senior care sentence or both. A general authorization for the release of medical or other information is NOT sufficient authorization for further disc losure. Allergies and Adverse Reactions Type Description Substance Reaction Status Data Source(s ) Allergy to substance Allergy to substance Allergy to substance [place] ([facility]) Family History Family Member Name Family Member Gender Family Member Status Date o f Status Description Data Source(s) Unknown Male Problem MEDENT ([facility]) () Unknown Unknown Problem [facility] ([facility]) Unknown Unknown Problem [facility] ([facility]) Unknown Unknown Problem [facility] ([facility], [facility]) Encounters Encounter Providers Location Date Indications Data Source(s ) O Attender: Sidra JO 021 07:23:37 PM EST - 10/30/2020 07:25:02 PM EST [facility] ([facility] ) O 10/30/2020 07:13:52 PM EST [facility] ([facility]) ROXANNA Zaragoza: [address] [place] [address], Ph. Attender: Humera JIMENEZ [facility] Medical 08/11/2020 12:00:00 AM EST [place] ([facility]) ROXANNA Zaragoza: [address] [place] [address], Ph. [facility] 08/04/[facility] 12:00:00 AM EST [place] ([facility] [address] [place] [address], Ph. [facility] 07/23/2020 12:00:00 AM EST [place] ([facility]) [facility] [address], [place] [address], Ph. [facility]: [facility] 07/23/2020 12:00:00 AM EST [place] ([facility]) Outpatient Attender: BARBARA SHAVER 06/24/2020 05:23:00 P M EDT [facility] Outpatient Attender: Humera SHAVER 05/28/2020 07:0 1:02 PM EDT [facility] Outpatient Attender: BARBARA SHAVER 03/14/2020 09:02:01 A M EDT [facility] Outpatient Attender: BARBARA SHAVER 03/14/2020 09:01:00 A M EDT [facility] Outpatient Attender: Humera SHAVER 03/05/2020 06:3 9:01 PM EDT [facility] Outpatient Attender: Humera SHAVER 01/30/2020 10:4 0:02 AM EDT [facility] Outpatient Attender: BARBARA SHAVER 01/28/2020 12:56:01 P M EDT [facility] Outpatient Attender: BARBARA SHAVER 01/16/2020 02:54:00 P M EDT [facility] Outpatient Attender: BARBARA SHAVER 12/07/2019 04:11:00 P M EDT [facility] Outpatient Attender: BARBARA SHAVER 11/26/2019 09:01:04 P M EDT [facility] Outpatient Attender: Humera JIMENEZ FP 11/05/2019 03:4 1:01 PM [facility] Outpatient Attender: Humera JIMENEZ FP 10/01/2019 09:0 7:01 PM [facility] Outpatient Attender: BARBARA JIMENEZ FP 10/01/2019 09:07:00 P M [facility] Outpatient Attender: BARBARA JIMENEZ FP 10/01/2019 09:06:01 P M [facility] Outpatient Attender: Humera JIMENEZ FP 10/01/2019 09:0 6:01 PM [facility] Outpatient Attender: Humera JIMENEZ FP 10/01/2019 09:0 5:02 PM [facility] Outpatient Attender: BARBARA JIMENEZ FP 10/01/2019 09:05:02 P M [facility] Outpatient Attender: Humera JIMENEZ 09/27/2019 03:4 4:01 PM [facility] Outpatient Attender: Humera JIMENEZ 09/26/2019 10:2 1:59 PM [facility] Outpatient Attender: Humera JIMENEZ FP 09/25/2019 09:5 9:02 AM [facility] Outpatient Attender: BARBARA JIMENEZ 09/17/2019 11:51:00 A M [facility] Outpatient Admitter: DEFAULT / [place] / UNKNOWN PROVIDER [facility] 09/06/2019 12:00:00 AM [facility] Family histor y of other congenital malformations, deformations and chromosomal abnormalities [facility] Family history of other congenital malfo [...] atorvastati n 10 MG Oral Tablet [place] ([facility]) atorvastatin 10 MG Oral Tablet atorvasta tin 10 mg tablet TAKE ONE TABLET BY MOUTH DAILY AT BEDTIME atorvastatin 10 mg tablet TAKE ONE TABLE T BY MOUTH DAILY AT BEDTIME completed atorvastati n 10 MG Oral Tablet [place] ([facility]) Metformin hydrochloride 500 MG Oral Tablet metformin 5 00 mg tablet metformin 500 mg tablet completed metformin hy drochloride 500 MG Oral Tablet [place] ([facility]) Insurance Providers Payer name Policy type / Coverage type Policy ID Covered democrat ID Covered democrat's relationship to foster Policy Foster Plan Information [facility] [id number] SP [id number] [facility] Commercial Insurance Co. [id number] Self [id number] [facility] Commercial Insurance Co. [id number] Self [id number] SELF PAY ONLY [id number] SP [id number] [facility] Plan P [id number] S [id number] Medicaid S [id number] S [id number] [facility] Community Plan P [id number] S [id number] [facility] S [id number] S [id number] [facility] P [id number] S [id number] [facility] [facility] [id number] SP [id number] [employer] [facility] [id number] SP U [id number] [facility] P [id number] S [id number] [facility] I [id number] Self [id number] Medicaid O [id number] S [id number] [facility] - Community Plan [facility] S [id number] S [id number] [facility] [id number] SP [id number] Managed Care - Community Plan [facility] S [id number] S [id number] Medicaid O [id number] S [id number] [facility] [facility] P [id number] S [id number] [employer] [id number] SP U [id number] [employer] O [id number] S U [id number] [facility] O [id number] S [id number] Self Pay P UNAVAILABLE S UNAVAILA BLE Managed Care - Community Plan [facility] P [id number] S [id number] Medicaid S [id number] S [id number] [facility] COMMUN PLAN [id number] 18 [id number] [facility] COMMUNITY [place] [id number] 18 [id number] [facility] Communty Plan Medicaid [id number] Self [id number] [facility] Community Plan Commercial [id number] Self [id number] [employer] [id number] U [id number] [facility] [id number] 18 [id number] [facility] Health Maintenance Organization (HMO) [id number] Self [id number] C[employer]/Conn [employer] Commercial [id number] Self [id number] [facility] Community Plan Medicaid [id number] Self [id number] [facility] Commercial [id number] Self [id number] [facility] COMMUNITY PLAN [id number] 18 [id number] [facility] COMMUNITY PLAN [id number] 18 [id number] [facility] Community Plan Medicaid [id number] Self [id number] [facility] Community Plan Medicaid [id number] Self [id number] [facility] Community Plan Medicaid [id number] Self [id number] [facility] Health Maintenance Organization (HMO) [id number] Self [id number] [employer] Commercial [id number] Self [id number] [facility] Community Plan Medicaid [id number] Self [id number] [facility] COMMUNITY PLAN MCDO [id number] SP [id number] [employer] [facility] [id number] SP U [id number] [facility] COMMUNITY PLAN MCDO [id number] SP [id number] [facility] Health Maintenance Organization (HMO) [id number] Self [id number] [facility] COMMUNITY PLAN MCDO [id number] SP [id number] CIGNA/MVP/CONN GEN/PREFE O [id number] S [id number] [facility]) O [id number] S [id number] [facility] COMMUNITY PLAN MCDO [id number] SP [id number] CIGNA INSURANCE CO [id number] SP [id number] Cigna/Conn Gen/[employer] Commercial Self [facility] Health Maintenance Organization (HMO) Self [facility] [id number] SP [id number] BLUE CROSS PANCHAL PLAN [id number] SP [id number] Managed Care BCBS O [id number] S [id number] Managed Care - Community Plan [facility] P [id number] S [id number] Managed Care BCBS O UNAVAILABLE S UNAVAILABLE O BLUE [id number] SP [id number] Problems, Conditions, and Diagnoses Code Display Name Description Problem Type Effective Dates Data Source(s) 617843911 Clinical finding Clinical Finding Problem 07/03/2020 06 :17:39 PM EDT [place] ([facility]) 233955853 Viral hepatitis A without hepatic coma V iral Hepatitis a without Hepatic Coma Problem 07/03/2020 06:17:39 PM EDT [place] ([facility]) [id number] Clinical finding Clinical Finding Problem 07/03/2020 06 :17:39 PM EDT [place] ([facility]) [id number] Depressive disorder Depressive Disorder Problem 1 06:17:39 PM EDT [place] ([facility]) 56444159 Viral hepatitis C Viral Hepatitis C Problem 07/03/2020 06:17:39 PM EDT [place] ([facility]) [id number] Clinical finding Clinical Finding Problem 07/03/2020 06 :17:39 PM EDT [place] ([facility]) [id number] Viral hepatitis A without hepatic coma V iral Hepatitis a without Hepatic Coma Problem 07/03/2020 06:17:39 PM EDT [place] ([facility]) [id number] Clinical finding Clinical Finding Problem 07/03/2020 06 :17:39 PM EDT [place] ([facility]) 46407167 Depressive disorder Depressive Disorder Problem 1 06:17:39 PM EDT [place] ([facility]) 13833385 Viral hepatitis C Viral Hepatitis C Problem 07/03/2020 06:17:39 PM EDT [place] ([facility]) Z82.79 Family history of other alexander enital malformations, deformations and chromosomal abnormalities Family history of other congenital malfo rmations, deformations and chromosomal abnormalities Diagnosis 09/06/2019 11:02: 00 AM EST [facility] Results ID Date Data Source [id number] 08/30/2020 12:00:00 AM EST [facility] Name Value Range Interpretation Code Description Data Rashmi rce(s) Supporting Document(s) SARS-CoV-2 (COVID-19) RNA [Presence] in Respiratory specimen by [facility] with probe detection [facility] This lab was ordered by [facility] and reported by [facility]. ID Date Data Source [id number] 08/04/2020 10:55:00 AM EST [place] ([facility]) Name Value Range Interpretation Code Description Data Rashmi rce(s) Supporting Document(s) PSA total 0.3 NG/mL 0.0-4.0 normal PSA Total [place] ([facility]) PSA comment . normal PSA Comment [place] ([facility]) ID Date Data Source [id number] 08/04/2020 10:55:00 AM EST [place] ([facility]) Name Value Range Interpretation Code Description Data Rashmi rce(s) Supporting Document(s) Hemoglobin A1c/Hemoglobin.total in Blood 10.3 % normal Hemoglobin a1C [place] ([facility]) estimated average glucose 249 mg/dL 60-110 Above high norm al Estimated Average Glucose [facility]) ID Date Data Source [id number] 08/04/2020 10:55:00 AM [facility] Name Value Range Interpretation Code Description Data Rashmi rce(s) Supporting Document(s) total 25(oh) vitamin D 11.6 NG/mL 30.0-100.0 Below low normal T otal 25(Oh) Vitamin D [facility]) ID Date Data Source [id number] 08/04/2020 10:55:00 AM EST [facility]) Name Value Range Interpretation Code Description Data Rashmi rce(s) Supporting Document(s) thyroid stimulating hormone 3.340 uIU/mL 0.358-3.740 normal Thyroid Stimulating Hormone [place] ([facility]) free T4 1.20 NG/dL 0.76-1.46 normal Free T4 [facility]) ID Date Data Source [id number] 08/04/2020 10:55:00 AM EST [place] ([facility]) Name Value Range Interpretation Code Description Data Rashmi rce(s) Supporting Document(s) cholesterol level 205 mg/dL <200 Above high normal Cholesterol Level [place] ([facility]) Cholesterol in LDL [Mass/volume] in Serum or Plasma 106 mg/dL <100 Above high normal LDL Cholesterol [place] [facility]) HDL cholesterol 32 mg/dL >40 Below low normal HDL Cholestero l [place] ([facility]) triglycerides level 334 mg/dL <150 Above high normal Triglycer ides Level [place] ([facility]) non-HDL-C 173 mg/dL normal Non-hdl-c [place] ([facility]) cholesterol risk ratio <5 Above high normal Choles terol Risk Ratio [place] ([facility]) ID Date Data Source [id number] 08/04/2020 10:55:00 AM EST [place] ([facility]) Name Value Range Interpretation Code Description Data Rashmi rce(s) Supporting Document(s) blood urea nitrogen 12 mg/dL 7-18 normal Blood Urea Nitro gen [place] ([facility]) glucose, fasting 200 mg/dL 70-100 Above high normal Glucose, Fas ting [place] ([facility]) creatinine for GFR 1.37 mg/dL 0.70-1.30 Above high normal Creatinine for GFR [place] ([facility]) glomerular filtration rate >56 normal Glomerula r Filtration Rate [place] ([facility]) sodium level 139 mEq/L 136-145 normal Sodium Level [place] ([facility]) potassium serum 4.7 mEq/L 3.5-5.1 normal Potassium Serum [facility] ([facility]) carbon dioxide level 30 mEq/L 21-32 normal Carbon Dioxide Level [place] ([facility]) chloride level 106 mEq/L 98-107 normal Chloride Level [place] ([facility]) anion gap 3 mEq/L 8-16 Below low normal Anion Gap [place] ( [facility]) ALT/SGPT 44 U/L 12-78 normal ALT/SGPT [place] ([facility]) AST/SGOT 11 U/L 7-37 normal AST/SGOT [place] ([facility]) calcium level 9.5 mg/dL 8.5-10.1 normal Calcium Level [place] ( [facility]) albumin 4.0 gm/dL 3.2-5.2 normal Albumin [place] ([facility]) alkaline phosphatase 130 U/L 45-117 Above high normal Alkaline Phosphatase [place] ([facility]) total protein 7.6 gm/dL 6.4-8.2 normal Total Protein [place] ( [facility]) bilirubin,total 0.9 mg/dL 0.2-1.0 normal Bilirubin,total [facility] ([facility]) albumin/globulin ratio normal Albumin/globu heber Ratio [place] ([facility]) ID Date Data Source [id number] 08/04/2020 10:55:00 AM EST [place] ([facility]) Name Value Range Interpretation Code Description Data Rashmi rce(s) Supporting Document(s) white blood count 5.7 10 4.0-10.0 normal White Blood Count [place] ([facility]) red blood count 5.30 10 4.30-6.10 normal Red Blood Count [facility] ([facility]) hemoglobin 16.5 g/dL 13.5-17.5 normal Hemoglobin [place] ([facility]) hematocrit 49.2 % 42.0-52.0 normal Hematocrit [place] ([facility]) mean corpuscular hemoglobin 31.1 pg 27.0-33.0 normal Mean Corpuscular Hemoglobin [place] ([facility]) mean corpuscular volume 92.8 fL 80.0-96.0 normal Mean Corpusc ular Volume [place] ([facility]) mean corpuscular HGB conc 33.5 g/dL 32.0-36.5 normal Mean Corpu scular HGB Conc [place] ([facility]) red cell distribution width 12.3 % 11.5-14.5 normal Red Cell Distribution Width [place] ([facility]) mono % 13.4 % 0.0-5.0 Above high normal Edgar % [place] ([facility]) neutrophils % 54.7 % 36.0-66.0 normal Neutrophils % [place] ( [facility]) lymph % 27.2 % 24.0-44.0 normal Lymph % [place] ([facility]) platelet count, automated 159 10 150-450 normal Platelet C ount, Automated [place] ([facility]) eos % 3.9 % 0.0-3.0 Above high normal Eos % [place] ([facility]) baso % 0.4 % 0.0-1.0 normal Baso % [place] ([facility]) immature granulocyte % 0.4 % 0-3.0 normal Immature Gran ulocyte % [place] ([facility]) neutrophils # 3.1 10 1.5-8.5 normal Neutrophils # [place] ( [facility]) nucleated red blood cell % 0.0 % 0-0 normal Nucleated Red Blood Cell % [place] ([facility]) mono # 0.8 10 0.0-0.8 normal Edgar # [place] ([facility]) lymph # 1.5 10 1.5-5.0 normal Lymph # [place] ([facility]) baso # 0.0 10 0.0-0.2 normal Baso # [place] ([facility]) eos # 0.2 10 0.0-0.5 normal Eos # [place] ([facility]) ID Date Data Source [id number] 09/25/2019 02:13:59 PM EST [facility] In-House Blood TestsDate/Time Colle cted: September 25, 2019 2:15 PMTest Result Reference Range Normal ValueComments: blood draw done in offcie done in the left ac tolerated well Michel Craig MA, September 25, 2019 2:15 PMAssessment & Plan Orders:[id number] Vst-Est Level I [CPT-13301] 27386 - Venipuncture [CPT-76141] Name Value Range Interpretation Code Description Data Rashmi rce(s) Supporting Document(s) ID Date Data Source [id number] 09/25/2019 10:05:00 AM [facility] Name Value Range Interpretation Code Description Data Rashmi rce(s) Supporting Document(s) VIT D25 TOT 12.2 ng/mL 30.0-100.0 L [facility] BG FASTING 181 mg/dL 70-100 [facility] T4, FREE 1.24 ng/dL 0.76-1.46 [facility] TSH 3.610 microintl units/mL 0.358-3.740 N [facility] ID Date Data Source [id number] 09/25/2019 10:05:00 AM [facility] Name Value Range Interpretation Code Description Data Rashmi rce(s) Supporting Document(s) HCT 48.0 % 42.0-52.0 N [facility] HGB 15.3 g/dL 13.5-17.5 N [facility] MCH 31.9 G/DL pg 32.0-36.[address] [facility] MCHC 29.7 PG % 27.0-33.0 N [facility] PLATELETS 144 10 10*3/mm3 150-450 L [facility] RBC 5.15 10 10*6/mm3 4.30-6.10 [facility] RDW 12.6 % 11.5-14.5 [facility] WBC TOTAL 4.9 4.0-10.0 N [facility] ID Date Data Source [id number] 09/25/2019 10:05:00 AM [facility] Name Value Range Interpretation Code Description Data Rashmi rce(s) Supporting Document(s) HGBA1C 8.4 % N [facility] ID Date Data Source [id number] 09/06/2019 01:54:08 PM [facility] Name Value Range Interpretation Code Description Data Rashmi rce(s) Supporting Document(s) Progress Note [facility] [id number] lbm [file] [id number] ID Date Data Source [id number] 10/11/2019 04:59:00 PM [facility] Molecular Genetics ReportName: ASHANTI MOLINA IEMRN: [id number] Number: [id number] Date: 09/06/2019 00:00Received Date: 09/06/2019 15:07Physician(s): ED,DEFAULT TEST HALEIGH PENA(s) ReceivedA: Peripheral Blood-[facility] for FANCA and NF-1TYPE OF STUDY: FANCA AND NF1 GENESCOMMENTS: A peripheral blood sample for this patient was sent to [facility], [place] [address] for analysis. Please see link for scanned external report.JMP/ab Electronically Signed By Kendall Grace, Ph.D., DABMGG, [facility] MolecularGeneticist 10/11/2019 16:59:24 Name Value Range Interpretation Code Description Data Rashmi rce(s) Supporting Document(s) Procedure Social History Code Duration Value Status Description Data Source(s ) Smoking 09/06/2019 12:00:00 AM EST Unknown if ever smoked comp leted Unknown if ever smoked [facility] Vital Signs ID Date Data Source UNK Name Value Range Interpretation Code Description Data Source(s) Body weight 2726 [oz_av] 2726 [oz_av] [facility]IL[facility] ([facility]) Systolic blood pressure 162 mm[Hg] 162 mm[Hg] A [facility]) Systolic blood pressure 135 mm[Hg] 135 mm[Hg] A [facility]) Body mass index (BMI) [Ratio] 25.9 kg/m2 25.9 k g/m2 GILMER ([facility]) Body height 68 [in_i] 68 [in_i] GILMER ([facility]) Diastolic blood pressure 100 mm[Hg] 100 mm[Hg] GILMER ([facility]) Diastolic blood pressure 91 mm[Hg] 91 mm[Hg] GLIMER ([facility]) Body weight 2697.6 [oz_av] 2697.6 [oz_av] ATHEN A ([facility]) Systolic blood pressure 119 mm[Hg] 119 mm[Hg] A [facility] ([facility]) Body mass index (BMI) [Ratio] 25.6 kg/m2 25.6 k g/m2 GILMER ([facility]) Body height 68 [in_i] 68 [in_i] GILMER ([facility]) Diastolic blood pressure 79 mm[Hg] 79 mm[Hg] GILMER ([facility]) Body weight 2697.6 [oz_av] 2697.6 [oz_av] ATHEN A ([facility]) Systolic blood pressure 119 mm[Hg] 119 mm[Hg] A THENA ([facility]) Body mass index (BMI) [Ratio] 25.6 kg/m2 25.6 k g/m2 GILMER ([facility]) Body height 68 [in_i] 68 [in_i] GILMER ([facility]) Diastolic blood pressure 79 mm[Hg] 79 mm[Hg] GILMER ([facility]) Patient Treatment Plan of Care Planned Activity Planned Date Details Description Data Source (s) Metformin hydrochloride 500 MG Oral Tablet GILMER ([facility]) atorvastatin 10 MG Oral Tablet GILMER ([facility]) atorvastatin 10 MG Oral Tablet GILMER ([facility])
[2020-10-31] MEDS: HumaLOG INSULIN (NovoLOG) PER UNIT SC SCH ×3 (03:00→11:29)
[2020-10-31 03:08] VITALS: BP 158/100
[2020-10-31] MEDS: MORPHINE 4 MG/ML 1ML VIAL/SYRINGE (J2270) IV PRN ×3 (03:49→12:07)
[2020-10-31] MEDS: NS 1,000 ML IV SCH ×2 (03:49→08:08)
[2020-10-31 04:26] LABS: HEMATOCRIT 41.4 % (42.0-52.0); HEMOGLOBIN 13.3 g/dl (13.5-17.5); MEAN CORPUSCULAR HGB CONC 32.1 g/dl (32.0-36.5); MEAN CORPUSCULAR VOLUME 93.5 fl (80.0-96.0); PLATELET COUNT, AUTOMATED 105 10^3/uL (150-450); RED BLOOD COUNT 4.43 10^6/uL (4.30-6.10); WHITE BLOOD COUNT 6.3 10^3/uL (4.0-10.0)
[2020-10-31 04:37] VITALS: BP 152/100
[2020-10-31 04:45] LABS: BLOOD UREA NITROGEN 16 MG/DL (7-18); CALCIUM LEVEL 8.3 MG/DL (8.5-10.1); CARBON DIOXIDE LEVEL 27 MEQ/L (21-32); CHLORIDE LEVEL 109 MEQ/L (98-107); CREATININE FOR GFR 1.25 MG/DL (0.70-1.30); GLOMERULAR FILTRATION RATE > 60.0 (>56); GLUCOSE, FASTING 103 MG/DL (70-100); LIPASE 419 U/L (73-393); POTASSIUM SERUM 4.2 MEQ/L (3.5-5.1); SODIUM LEVEL 143 MEQ/L (136-145)
[2020-10-31 04:50] LABS: CK-MB VALUE MASS 1.4 NG/ML (<3.6); CPK CREATINE PHOSPHOKINASE 95 U/L (39-308); MAGNESIUM LEVEL 1.5 MG/DL (1.8-2.4); MB/CK RELATIVE INDEX 1.47 (< OR =4); PHOSPHORUS LEVEL 3.1 MG/DL (2.5-4.9); TROPONIN I < 0.02 NG/ML (< 0.10)
--- NOTE | 2020-10-31 05:38 | ECGEPIP ---
[facility] - ED Test Date: 2020-10-30 Pat Name: EDI MOLINA Department: Room: - Gender: Male [employer]: MP : 1965 Requested By: AMADO Mohr Order Number: [id number] Reading MD: Darwin Ferguson Measurements Intervals [place] Rate: 68 P: 41 ND: 138 QRS: 11 QRSD: 75 T: 15 QT: 365 QTc: 390 Interpretive Statements SINUS RHYTHM POSSIBLE LEFT ATRIAL ENLARGEMENT LEFT VENTRICULAR HYPERTROPHY POSSIBLE SEPTAL MYOCARDIAL INFARCTION, OF INDETERMINATE AGE Electronically Signed on 10-31-2020 5:37:38 EST by Darwin Ferguson
[2020-10-31 06:00] VITALS: BP 134/90
[2020-10-31 08:08] VITALS: BP 143/96
[2020-10-31] MEDS ORDERED: MULTIVITAMINS/MINERALS THERAP 1 TAB PO SCH (09:00)
[2020-10-31] MEDS ORDERED: ENOXAPARIN 40MG/0.4ML SYRINGE (J1650 PER 10MG) SC SCH (09:00)
[2020-10-31] MEDS ORDERED: CARVedilol 12.5 MG TAB PO SCH (09:00)
[2020-10-31] MEDS ORDERED: PROHANCE 279.3MG/ML 5ML VIAL As Ordered ONE (09:58)
[2020-10-31] MEDS ORDERED: PROHANCE 279.3MG/ML 15ML VIAL As Ordered ONE (09:58)
--- NOTE | 2020-10-31 10:52 | REP ---
INDICATION: LIVER MASS PROTOCOL, densities RHL r/o malignancy vs. shunts. COMPARISON: Comparison CT study 30 October 2020.. TECHNIQUE: Axial and coronal T1 and T2 weighted sequences include spin echo, fast spin echo, diffusion, in and out of phase, and dynamically acquired sequential postcontrast images. FINDINGS: Obstructive uropathy on the right is again noted with moderate right-sided hydronephrosis and hydroureter. A right mid ureteral calculus is visualized matching the CT findings. There is perinephric stranding and periureteral stranding. Left kidney is unremarkable. No adrenal lesion is seen. No pancreatic abnormality is observed. There is mild to moderate splenomegaly. The spleen measures up to 14 cm. It is homogeneous. The liver parenchyma is somewhat coarse and a micronodular liver contour is seen. The left lobe is a little prominent. Findings are consistent with cirrhosis. There are several borderline celiac axis lymph nodes seen as noted on CT study. The largest of these has a 13 mm short axis dimension. Dynamically acquired post contrast images of the liver demonstrate early multifocal areas of arteriovenous shunting producing hypervascular areas in the periphery of the right and left lobe of the liver. This corresponds with the CT findings. No mass lesion is seen. The portal vein is patent and measures 16 mm in anteroposterior dimension. No other prominent venous collaterals are seen. IMPRESSION: No hepatic mass lesion is seen. Evidence of hepatocellular disease versus cirrhosis. There is mild to moderate splenomegaly. Obstructive uropathy is again noted on the right due to a right mid ureteral calculus with hydronephrosis and perinephric stranding. There are borderline celiac axis lymph nodes unchanged from the 30 October 2020 study. <Electronically signed by Mekhi Mosley > 10/31/20 1044
--- NOTE | 2020-10-31 11:59 | SMCUROLCON ---
Urology Consultation General Date of Consultation 10/31/20 Reason For Consultation This patient is seen for Acute Pancreatitis,Ureterolithiasis. History of Present Illness The patient is a 55-year-old male who yesterday experienced severe right flank pain radiating right groin and right testicle with nausea and vomiting. He has a prior history of spontaneous passage of ureteral calculi on 2 occasions. He's had no fever. He has noted no gross hematuria. CT imaging demonstrated a 6 mm right proximal ureteral calculus and at least one nonobstructing right renal calculus. The patient states presently is comfortable. Urinalysis shows specific gravity 1.017, pH of 5, dipstick revealed 3+ hemoglobin, negative esterase negative nitrites, 129 red cells, 3 white cells, no bacteria WBC is 7900, hemoglobin 14.1 g, hematocrit 43.7%, creatinine is 1.55, BUN is 20 Past medical history is remarkable for hypertension, diabetes, gout and recent finding of possible hepatic cirrhosis on CT imaging with hepatic nodule. This was also noted to have elevated serum lipase. Currently the patient states she is completely comfortable. I discussed the options available for management of a 6 mm right proximal ur eteral calculus with the patient. The option of proceeding with ureteroscopy and laser fragmentation and extraction or observation with hopeful spontaneous passage. He states that he does not wish to proceed with surgery at this time. He states he would like to try to pass a calculus. He is advised to take tamsulosin 0.4 million per day, force fluids and strain his urine and follow up in the urology office in one week. Past Medical History Medical History Hypertension, gout, hyperlipidemia, prior kidney stone Medications Current Medications Current Medications Medications (Trade) Dose Ordered Sig/Rojelio Route PRN Reason Start Time Stop Time Status Last Admin Dose Admin Amlodipine Besylate (Norvasc) 2.5 mg STAT STAT PO 10/31/20 05:17 10/31/20 05:18 Cancel Atorvastatin Calcium (Lipitor) 20 mg QHS PO 10/30/20 21:00 10/31/20 03:48 Carvedilol (COReg) 25 mg BID PO 10/31/20 09:00 10/31/20 08:08 Dextrose (Dextrose 50%) 25 ml ASDIRECTED PRN IV SEE LABEL COMMENTS 10/31/20 01:45 Enoxaparin Sodium (Lovenox) 40 mg DAILY SC 10/31/20 09:00 10/31/20 08:06 Glucagon (Glucagon) 1 mg ASDIRECTED PRN SC SEE LABEL COMMENTS 10/31/20 01:45 Glucose (Glucose) 16 GM ASDIRECTED PRN PO SEE LABEL COMMENTS 10/31/20 01:45 Home Med (Med Rec Complete!) ASDIRECTED XX 10/31/20 00:30 10/31/20 00:22 DC Insulin Human Lispro (HumaLOG INSULIN) SEE PROTOCOL TABLE Q6H SC 10/31/20 00:00 Morphine Sulfate (Morphine Sulfate Inj) 4 mg Q4HP PRN IV PAIN 10/31/20 01:45 10/31/20 08:07 Multivitamins (Theragram-M) 1 tab DAILY PO 10/31/20 09:00 10/31/20 08:07 Ondansetron HCl (ZOFRAN INJection) 4 mg Q6HP PRN IV NAUSEA OR VOMITING 10/31/20 01:30 Sodium Chloride 1,000 ml @ 150 mls/hr Q6H40M IV 10/30/20 23:52 10/31/20 03:16 DC 10/31/20 01:25 Sodium Chloride 1,000 ml @ 150 mls/hr Q6H40M IV 10/31/20 03:30 10/31/20 08:08 Allergies Allergies: Coded Allergies: No Known Allergies (Unverified , 04/27/18) Physical Examination General Exam: Alert, Cooperative, No Acute Distress EYE EXAM: PERRLA, EOMI ENT EXAM: Atraumatic Neck Exam: Supple; No: Lymphadenopathy Chest Exam: Clear to auscultation Heart Exam: Rate Normal, Regular Rhythm; No: Murmurs Abdomen Exam: Soft; No: Tenderness, Hepatospenomegaly, Mass Male Exam Normal male external genitalia Extremity Exam: No: Clubbing, Cyanosis, Edema Skin Exam: Nl turgor and temperature Neuro Exam: Cranial Nerves 3-12 NL Psych Exam: Mood NL Vital Signs/I&O Vital Signs Date Time Temp Pulse Resp B/P (MAP) Pulse Ox O2 Delivery O2 Flow Rate FiO2 10/31/20 08:30 18 10/31/20 08:08 64 143/96 10/31/20 06:00 97.8 99 Room Air I&O- Last 24 Hours up to 6 AM 10/31/20 06:00 Intake Total 1750 ml Output Total 300 ml Balance 1450 ml Laboratory Data 24H Labs Laboratory Tests 2 10/30/20 21:17: Anion Gap 6L, Glomerular Filtration Rate 50.0L, Calcium Level 9.7, Total Bilirubin 0.5, Direct Bilirubin 0.1, Aspartate Amino Transf (AST/SGOT) 29, Alanine Aminotransferase (ALT/SGPT) 48, Alkaline Phosphatase 140H, Total Creatine Kinase 128, Creatine Kinase MB 1.3, Creatine Kinase MB Relative Index 1.02, Troponin I 0.02, Total Protein 7.7, Albumin 3.9, Albumin/Globulin Ratio 1.0, Lipase 1355H 10/30/20 21:18: Immature Granulocyte % (Auto) 0.3, Neutrophils (%) (Auto) 60.4, Lymphocytes (%) (Auto) 22.6L, Monocytes (%) (Auto) 11.5H, Eosinophils (%) (Auto) 4.8H, Basophils (%) (Auto) 0.4, Neutrophils # (Auto) 4.8, Lymphocytes # (Auto) 1.8, Monocytes # (Auto) 0.9H, Eosinophils # (Auto) 0.4, Basophils # (Auto) 0.0, Nucleated Red Blood Cells % (auto) 0.0, Urine Color YELLOW, Urine Appearance CLEAR, Urine pH 5.0, Urine Specific [place] 1.017, Urine Protein NEGATIVE, Urine Glucose (UA) NEGATIVE, Urine Ketones NEGATIVE, Urine Blood 3+H, Urine Nitrite NEGATIVE, Urine Bilirubin NEGATIVE, Urine Urobilinogen 0.2, Urine Leukocyte Esterase NEGATIVE, Urine WBC (Auto) 3, Urine RBC (Auto) 129H, Urine Hyaline Casts (Auto) 0, Urine Bacteria (Auto) NEGATIVE, Urine Squamous Epithelial Cells 0, Urine Mucus (Auto) SMALL, Urine Sperm (Auto) 10/30/20 23:54: Coronavirus (COVID-19)(PCR) NEGATIVE, Influenza Type A (RT-PCR) NEGATIVE, Influenza Type B (RT-PCR) NEGATIVE, Respiratory Syncytial Virus (PCR) NEGATIVE 10/31/20 04:07: Anion Gap 7L, Glomerular Filtration Rate > 60.0, Calcium Level 8.3L, Total Creatine Kinase 95, Creatine Kinase MB 1.4, Creatine Kinase MB Relative Index 1.47, Troponin I < 0.02, Lipase 419H, Nucleated Red Blood Cells % (auto) 0.0, Phosphorus Level 3.1, Magnesium Level 1.5L, Tumor Marker Alpha Fetoprotein 2.4 10/31/20 06:02: Bedside Glucose (Misc Panel) 94 10/31/20 11:30: Bedside Glucose (Misc Panel) 102 CBC/BMP Laboratory Tests 10/30/20 21:17 10/30/20 21:18 10/31/20 04:07 Assessment Right proximal ureteral calculus, patient states she would like to try to pass this spontaneously Plan I discussed the options available for management. The patient states she would like to pass a calculus as opposed to proceeding with surgery. He is advised to take tamsulosin 0.4 mg per day, for splint strain his urine. He will follow up in the office urology in 1 week TANVI ALANIZ MD Oct 31, 2020 11:59
[2020-10-31] MEDS ORDERED: FLOM0.4C39 PO (12:28)
--- NOTE | 2020-10-31 17:34 | DS.PDOC ---
Discharge Summary General Date of Admission Oct 30, 2020 at 20:16 Date of Discharge 10/31/20 Attending Physician: Brittany Nuñez MD Discharge Summary HPI: Patient is a 55 yo male with PMH of nephrolithiasis presented to ED today due to Right flank pain which started while he was walking. Denies abdominal pain. Reported the right flank pain radiating to his right groin region. He reported the pain is constant , 10/10 pain. He reported having nausea and vomiting without hematemesis. Patient denies noticing blood in his urine. He reported no fever or chills. He had PMH of nephrolithiasis years ago, reported no surgery was done at that time. He denies any dysuria, urgency, frequency, retention. He reported that he has been urinating without problem. He reported he drinks 2-3 beers a day for about 30 years with last drink 2 weeks ago. He denies ever having alcohol withdrawl before. He denies any weight loss or jaundice. HOSPITAL COURSE: CT abd/pelvis showed: 1. Obstructive right uropathy the with mid ureteral stone. 2. Other nonobstructive renal stones in the right kidney. 3. Findings consistent with hepatic cirrhosis. 4. Multiple hypervascular nodular and segmental densities in the right hepatic lobe-differential diagnosis includes malignancy versus arterial portal shunts. Recommended MRI with liver mass protocol further evaluation. MRI abd/pelvis : No hepatic mass lesion is seen, evidence of hepatocellular disease versus cirrhosis, mild to moderate splenomegaly. No further evaluation was ordered for abnormal findings of liver, patient should follow up with PCP, abstain from alcohol use until further evaluated. Urology assessed patient and offered options of proceeding with ureteroscopy and laser fragmentation and extraction or observation with hopeful spontaneous passage. He stated that he does not wish to proceed with surgery at this time. He states he would like to try to pass a calculus. He is advised to take tamsulosin 0.4 mg per day, force fluids and strain his urine and follow up in the urology office in one week. Pancreatitis appears much improved, tolerated diet later in day without issues. He was discharged home later in the afternoon on 10/31/20 and encouraged to f/u with PCP. PMH: HTN DM type 2 Nephrolithiasis PSURGHX: Denies FAMILY HISTORY: Mother: breast cancer Father: "thrombosis of brain" SOCIAL HISTORY: Smoker: former Smoker (quit a month ago) Alcohol: other (quit a month ago) Drugs: denies Recent Travel/Sick Contacts: Denies: Recent travel, Recent sick contacts ALLERGIES: Please see below. DISCHARGE MEDICATIONS: Please see below. PHYSICAL EXAMINATION: VS: Please see below CONSTITUTIONAL: No acute distress, resting comfortably, AAO x 3 EYES: PERRLA, EOM intact HENT, MOUTH: Normocephalic, atraumatic, moist mucous membranes, NECK: SUPPLE, no JVD, no lymphadenopathy, no carotid bruit CV: Regular rate and rhythm, S1S2 normal, no murmurs/rubs/gallops RESPIRATORY: Clear to auscultation bilaterally, no rales/rhonchi/wheezes GI: BS positive in 4 quadrants, soft, nontender, nondistended, no rebound or guarding, no organomegaly : Deferred MUSCULOSKELETAL: Normal ROM. No cyanosis, clubbing, swelling, joint deformity, extremity edema INTEGUMENTARY: Intact, no rashes, no lesions, no erythema NEUROLOGIC: Cranial Nerves II-XII are intact, no focal deficits PSYCHIATRIC: Mood and affect are normal LABORATORY DATA: Please see below IMAGING: MRI abd/pelvis 09/30/20: No hepatic mass lesion is seen. Evidence of hepatocellular disease versus cirrhosis. There is mild to moderate splenomegaly. Obstructive uropathy is again noted on the right due to a right mid ureteral calculus with hydronephrosis and perinephric stranding. There are borderline celiac axis lymph nodes unchanged from the bruary [address] abd/pelvis 10/30/20: 1. Obstructive right uropathy the with mid ureteral stone. 2. Other nonobstructive renal stones in the right kidney. 3. Findings consistent with hepatic cirrhosis. 4. Multiple hypervascular nodular and segmental densities in the right hepatic lobe. Differential diagnosis includes malignancy versus arterial portal shunts. Recommend MRI with liver mass protocol further evaluation. ASSESSMENT: 55 y/o M with PMH above admitted for obstructive right ureterolithiasis, acute pancreatitis. PLAN: Obstructive right uropathy 2/2 mid ureteral stone, mild hydronephrosis -CT abd/pelvis above -Cr wnl after IVFs overnight -States to have no right flank/groin pain this AM, denies having pain passing stone -Urology was consulted (Dr. Adkins) and option of proceeding with ureteroscopy and laser fragmentation and extraction or observation with hopeful spontaneous passage was given. He stated that he did not wish to proceed with surgery at this time. He states he would like to try to pass the calculus, tamsulosin 0.4 mg per day was started -He is encouraged to c/w aggressive fluid hydration and strain his urine -He was given option to follow up in the urology office in one week. GUEVARA 2/2 obstructive uropathy- resolved -Encourage hydration as above -Will need f/u with PCP after discharge Pancreatitis, possible alcohol-induced -elevated lipase, decreased this AM -patient denies epigastric abdominal pain but with nausea and vomiting. No CT evidence of pancreatitis. -Tolerated regular diet prior to discharge. Hepatic cirrhosis likely, hx of alcohol abuse -CT/MRI findings suggestive of hepatic cirrhosis -AST/ALT wnl -Patient recently quit drinking alcohol, reported last drink was 2 week ago -No obvious jaundice noted. -Alcohol cessation counselling done at bedside -Consider outpatient follow up Right hepatic nodules, ddx possible malignancy vs arterial portal shunts -CT abd/pelvis showed "multiple hypervascular nodular and segmental densities in right hepatic lobe". -MRI with liver mass protocol above and did not suggest further treatment/not seen on this imaging -F/u with PCP Hypertension -C/w home medications -Vital signs DM type 2 -c/w home medications. DISPOSITION: Discharged home to follow up with PCP within 1-2 weeks TIME SPENT ON DISCHARGE: 35 minutes. Vital Signs/I&Os Vital Signs Date Time Temp Pulse Resp B/P (MAP) Pulse Ox O2 Delivery O2 Flow Rate FiO2 10/31/20 12:20 18 10/31/20 08:08 64 143/96 10/31/20 06:00 97.8 99 Room Air I&O- Last 24 Hours up to 6 AM 10/31/20 06:00 Intake Total 1750 ml Output Total 300 ml Balance 1450 ml Laboratory Data Labs 24H Laboratory Tests 2 10/30/20 21:17: Anion Gap 6L, Glomerular Filtration Rate 50.0L, Calcium Level 9.7, Total Bilirubin 0.5, Direct Bilirubin 0.1, Aspartate Amino Transf (AST/SGOT) 29, Alanine Aminotransferase (ALT/SGPT) 48, Alkaline Phosphatase 140H, Total Creatine Kinase 128, Creatine Kinase MB 1.3, Creatine Kinase MB Relative Index 1.02, Troponin I 0.02, Total Protein 7.7, Albumin 3.9, Albumin/Globulin Ratio 1.0, Lipase 1355H 10/30/20 21:18: Immature Granulocyte % (Auto) 0.3, Neutrophils (%) (Auto) 60.4, Lymphocytes (%) (Auto) 22.6L, Monocytes (%) (Auto) 11.5H, Eosinophils (%) (Auto) 4.8H, Basophils (%) (Auto) 0.4, Neutrophils # (Auto) 4.8, Lymphocytes # (Auto) 1.8, Monocytes # (Auto) 0.9H, Eosinophils # (Auto) 0.4, Basophils # (Auto) 0.0, Nucleated Red Blood Cells % (auto) 0.0, Urine Color YELLOW, Urine Appearance CLEAR, Urine pH 5.0, Urine Specific [place] 1.017, Urine Protein NEGATIVE, Urine Glucose (UA) NEGATIVE, Urine Ketones NEGATIVE, Urine Blood 3+H, Urine Nitrite NEGATIVE, Urine Bilirubin NEGATIVE, Urine Urobilinogen 0.2, Urine Leukocyte Esterase NEGATIVE, Urine WBC (Auto) 3, Urine RBC (Auto) 129H, Urine Hyaline Casts (Auto) 0, Urine Bacteria (Auto) NEGATIVE, Urine Squamous Epithelial Cells 0, Urine Mucus (Auto) SMALL, Urine Sperm (Auto) 10/30/20 23:54: Coronavirus (COVID-19)(PCR) NEGATIVE, Influenza Type A (RT-PCR) NEGATIVE, Influenza Type B (RT-PCR) NEGATIVE, Respiratory Syncytial Virus (PCR) NEGATIVE 10/31/20 04:07: Anion Gap 7L, Glomerular Filtration Rate > 60.0, Calcium Level 8.3L, Total Creatine Kinase 95, Creatine Kinase MB 1.4, Creatine Kinase MB Relative Index 1.47, Troponin I < 0.02, Lipase 419H, Nucleated Red Blood Cells % (auto) 0.0, Phosphorus Level 3.1, Magnesium Level 1.5L, Tumor Marker Alpha Fetoprotein 2.4 10/31/20 06:02: Bedside Glucose (Misc Panel) 94 10/31/20 11:30: Bedside Glucose (Misc Panel) 102 CBC/BMP Laboratory Tests 10/30/20 21:17 10/30/20 21:18 10/31/20 04:07 FSBS Laboratory Tests Test 10/31/20 06:02 10/31/20 11:30 Range/Units Bedside Glucose (Misc Panel) 94 102 70-105 MG/DL Discharge Medications Scheduled Atorvastatin Calcium (Atorvastatin Calcium) 20 Mg Tablet, 20 MG PO QHS, (Reported) Carvedilol (Carvedilol) 25 Mg Tab, 25 MG PO BID, (Reported) Lisinopril (Lisinopril) 40 Mg Tab, 40 MG PO DAILY, (Reported) Metformin HCl (Metformin HCl) 1,000 Mg Tablet, 1,000 MG PO BID, (Reported) Multivitamins (Thera M Plus Tablet) 1 Each Tablet, 1 TAB PO DAILY, (Reported) Tamsulosin HCl (Flomax) 0.4 Mg Capsule, 0.4 MG PO DAILY Scheduled PRN Ibuprofen (Ibuprofen) 800 Mg Tablet, 800 MG PO BID PRN for PAIN, (Reported) Prednisone (Prednisone) 10 Mg Tablet, 10 MG PO DAILY PRN for GOUT FLARE-UPS, (Reported) Allergies Coded Allergies: No Known Allergies (Unverified , 04/27/18) Brittany Nuñez MD Oct 31, 2020 17:34
== END 2020-10-31 15:00 | disposition home or self-care (01) ==
LOC: M ED 20:15 → M ED INP 20:16 → M MSPAV 10-31 03:00
PROVIDERS: ADMIT Internal Medicine; ATTEND Internal Medicine
DX: N13.2 Hydronephrosis with renal and ureteral calculous obstruction (principal); N20.1 Calculus of ureter; K85.90 Acute pancreatitis without necrosis or infection, unspecified; K74.60 Unspecified cirrhosis of liver; E78.49 Other hyperlipidemia; M10.9 Gout, unspecified; E11.9 Type 2 diabetes mellitus without complications; I10 Essential (primary) hypertension; Z87.891 Personal history of nicotine dependence; Z79.84 Long term (current) use of oral hypoglycemic drugs; Z79.899 Other long term (current) drug therapy
CPT/HCPCS: 36415; 74177; 74183; 80048; 80076; 81001; 82105; 82550; 82553; 83690; 83735; 84100; 85025; 85027; 87631; 93005; 96361; 96374; 96376; 99285; A9576; J1650; J2270; Q9967

== ENCOUNTER → 2020-11-10 | Outpatient (REF) | payer OTHER ==
[~2020-11-10] MED LIST changes: +ATOR1TAB21 PO; +FLOM0.4C39 PO; +IBUP1TAB7 PO; +METF10004 PO; +PRED10TA2 PO; +VITMTA PO
[2020-11-10 13:07] LABS: BASO % 0.6 % (0.0-1.0); EOS # 0.6 10^3/uL (0.0-0.5); HEMATOCRIT 42.5 % (42.0-52.0); HEMOGLOBIN 14.3 g/dl (13.5-17.5); LYMPH # 1.5 10^3/uL (1.5-5.0); LYMPH % 24.4 % (24.0-44.0); MEAN CORPUSCULAR HEMOGLOBIN 31.6 pg (27.0-33.0); MEAN CORPUSCULAR HGB CONC 33.6 g/dl (32.0-36.5); MEAN CORPUSCULAR VOLUME 93.8 fl (80.0-96.0); MONO # 0.9 10^3/uL (0.0-0.8); MONO % 14.9 % (2.0-8.0); NEUTROPHILS # 3.2 10^3/uL (1.5-8.5); NEUTROPHILS % 50.9 % (36.0-66.0); PLATELET COUNT, AUTOMATED 139 10^3/uL (150-450); RED BLOOD COUNT 4.53 10^6/uL (4.30-6.10); WHITE BLOOD COUNT 6.3 10^3/uL (4.0-10.0)
[2020-11-10 13:49] LABS: ALBUMIN 4.3 GM/DL (3.2-5.2); ALT/SGPT 47 U/L (12-78); BILIRUBIN,TOTAL 0.6 MG/DL (0.2-1.0); BLOOD UREA NITROGEN 16 MG/DL (7-18); CALCIUM LEVEL 9.5 MG/DL (8.5-10.1); CARBON DIOXIDE LEVEL 28 MEQ/L (21-32); CHLORIDE LEVEL 108 MEQ/L (98-107); CHOLESTEROL LEVEL 129 MG/DL (<200); CHOLESTEROL RISK RATIO 3.583 (<5); CREATININE FOR GFR 1.22 MG/DL (0.70-1.30); GLOMERULAR FILTRATION RATE > 60.0 (>56); GLUCOSE, FASTING 110 MG/DL (70-100); HDL CHOLESTEROL 36 MG/DL (>40); LDL CHOLESTEROL 69 MG/DL (<100); NON-HDL-C 93 MG/DL; POTASSIUM SERUM 4.9 MEQ/L (3.5-5.1); SODIUM LEVEL 141 MEQ/L (136-145); TOTAL PROTEIN 7.6 GM/DL (6.4-8.2); TRIGLYCERIDES LEVEL 119 MG/DL (<150)
[2020-11-10 13:52] LABS: TOTAL 25(OH) VITAMIN D 30.5 NG/ML (30.0-100.0)
== END ==
LOC: M LAB REF 12:46
PROVIDERS: ATTEND Nurse Practitioner Family
DX: E78.5 Hyperlipidemia, unspecified (principal); I10 Essential (primary) hypertension; G89.29 Other chronic pain

== ENCOUNTER 2020-12-26 20:38 | Inpatient (IN) | payer OTHER ==
[~2020-12-26] VITALS: Ht 172.7 cm; Wt 76.3 kg
[2020-12-26] MEDS ORDERED: ONDANSETRON 4MG/2ML VIAL IV ONE (21:10)
[2020-12-26] MEDS ORDERED: KETOROLAC 30 MG/ML 1ML VIAL IV ONE (21:10)
[2020-12-26] MEDS ORDERED: MORPHINE 4 MG/ML 1ML VIAL/SYRINGE (J2270) IV ONE (21:10)
[2020-12-26 21:17] LABS: HEMATOCRIT 43.3 % (42.0-52.0); HEMOGLOBIN 14.2 g/dl (13.5-17.5); MEAN CORPUSCULAR HEMOGLOBIN 30.9 pg (27.0-33.0); MEAN CORPUSCULAR HGB CONC 32.8 g/dl (32.0-36.5); MEAN CORPUSCULAR VOLUME 94.3 fl (80.0-96.0); PLATELET COUNT, AUTOMATED 121 10^3/uL (150-450); RED BLOOD COUNT 4.59 10^6/uL (4.30-6.10); WHITE BLOOD COUNT 5.6 10^3/uL (4.0-10.0)
--- NOTE | 2020-12-26 21:19 | ECGEPIP ---
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
[2020-12-26 21:56] LABS: ALBUMIN 3.9 GM/DL (3.2-5.2); ALT/SGPT 71 U/L (12-78); BILIRUBIN,TOTAL 0.4 MG/DL (0.2-1.0); BLOOD UREA NITROGEN 18 MG/DL (7-18); CALCIUM LEVEL 9.6 MG/DL (8.5-10.1); CARBON DIOXIDE LEVEL 32 MEQ/L (21-32); CHLORIDE LEVEL 109 MEQ/L (98-107); CREATININE FOR GFR 1.32 MG/DL (0.70-1.30); GLOMERULAR FILTRATION RATE > 60.0 (>56); GLUCOSE, FASTING 106 MG/DL (70-100); POTASSIUM SERUM 4.5 MEQ/L (3.5-5.1); SODIUM LEVEL 144 MEQ/L (136-145); TOTAL PROTEIN 7.3 GM/DL (6.4-8.2)
--- NOTE | 2020-12-26 21:58 | REPVR ---
PROCEDURE INFORMATION: Exam: XR Chest Exam date and time: 12/26/2020 9:16 PM Age: 55 years old Clinical indication: Other: Chest pain TECHNIQUE: Imaging protocol: XR of the chest. Views: 1 view. COMPARISON: CR Chest, 2 view PA, Lat 12/15/2015 4:35 PM FINDINGS: Lungs: Unremarkable. No consolidation. Pleural spaces: Unremarkable. No pleural effusion. No pneumothorax. Heart/Mediastinum: Unremarkable. No cardiomegaly. Bones/joints: Unremarkable. IMPRESSION: No acute findings. Electronically signed by: Abad Odom On 12/26/2020 21:59:17 PM
--- NOTE | 2020-12-26 22:05 | REPVR ---
PROCEDURE INFORMATION: Exam: CT Abdomen And Pelvis Without Contrast Exam date and time: 12/26/2020 9:23 PM Age: 55 years old Clinical indication: Abdominal pain; Localized; Left; Additional info: Left flank pain eval for stone TECHNIQUE: Imaging protocol: Computed tomography of the abdomen and pelvis without contrast. Radiation optimization: All CT scans at this facility use at least one of these dose optimization techniques: automated exposure control; mA and/or kV adjustment per patient size (includes targeted exams where dose is matched to clinical indication); or iterative reconstruction. COMPARISON: CT ABD/PEL W/IV CONTRAST ONLY 10/30/2020 10:53 PM FINDINGS: Liver: Cirrhotic changes. Gallbladder and bile ducts: Normal. No calcified stones. No ductal dilation. Pancreas: Normal. No ductal dilation. Spleen: Spleen is enlarged and measures 12.5 cm. Adrenal glands: Normal. No mass. Kidneys and ureters: Multiple nonobstructing calculi in the right kidney with the largest measuring 4 mm in the lower pole of the right kidney. Left perinephric stranding. Left ureter is dilated with a obstructing calculus in the distal ureter measuring 7 mm. There is a 2nd obstructing calculus distal to the prior measuring 1 cm. Stomach and bowel: Unremarkable. No obstruction. No mucosal thickening. Appendix: No evidence of appendicitis. Intraperitoneal space: Unremarkable. No free air. No significant fluid collection. Vasculature: Unremarkable. No abdominal aortic aneurysm. Lymph nodes: Unremarkable. No enlarged lymph nodes. Urinary bladder: Unremarkable as visualized. Reproductive: Unremarkable as visualized. Bones/joints: Unremarkable. No acute fracture. Soft tissues: Unremarkable. IMPRESSION: Left hydroureter with obstructing calculi in the distal left ureter measuring 7 mm and 1 cm. Left perinephric stranding representing inflammation/infection. Cirrhosis. Electronically signed by: Abad Odom On 12/26/2020 22:05:41 PM
[2020-12-26 22:37] LABS: APPEARANCE, URINE CLEAR (CLEAR); BACTERIA, URINE AUTO NEGATIVE (NEGATIVE); BILIRUBIN, URINE AUTO NEGATIVE (NEGATIVE); BLOOD, URINE BLOOD 3+ (NEGATIVE); COLOR, URINE STRAW (YELLOW); GLUCOSE, URINE (UA) AUTO NEGATIVE (NEGATIVE); KETONE, URINE AUTO NEGATIVE (NEGATIVE); LEUKOCYTE ESTERASE, URINE AUTO NEGATIVE (NEGATIVE); MUCUS, URINE SMALL (NEGATIVE); NITRITE, URINE AUTO NEGATIVE (NEGATIVE); PROTEIN, URINE AUTO NEGATIVE (NEGATIVE); RBC, URINE AUTO TNTC /HPF (0-3); SPECIFIC GRAVITY URINE AUTO 1.009 (1.002-1.035); SQUAMOUS EPITHELIAL CELL UR AU 0 /HPF (0-6); UROBILINOGEN, URINE AUTO 0.2 mg/dL (0.0-2.0); WBC, URINE AUTO 3 /HPF (0-3)
[2020-12-26] MEDS ORDERED: AMLO1TAB24 PO (23:24)
[2020-12-26] MEDS ORDERED: ACETAMINOPHEN TAB 650MG DOSE (2X325MG) PO PRN (23:25)
[2020-12-26] MEDS ORDERED: ONDANSETRON 4MG/2ML VIAL IV PRN (23:25)
[2020-12-26] MEDS ORDERED: MAALOX 30 ML SUSP *UDC PO PRN (23:25)
[2020-12-26] MEDS ORDERED: GLUCAGON INJ 1MG VIAL SC PRN (23:25)
[2020-12-26] MEDS ORDERED: GLUCOSE 4GM CHEW TABLET PO PRN (23:25)
[2020-12-26] MEDS ORDERED: DEXTROSE 50% 50 ML SYRINGE IV PRN (23:25)
[2020-12-26] MEDS ORDERED: MORPHINE 4 MG/ML 1ML VIAL/SYRINGE (J2270) IV PRN (23:25)
[2020-12-26] MEDS ORDERED: MOM 30ML SUSPENSION UDC PO PRN (23:25)
--- NOTE | 2020-12-26 23:34 | HPEPDOC ---
[facility] Medical History & Physical Date of Admission Dec 26, 2020 Date of Service: Dec 26, 2020 History and Physical CHIEF COMPLAINT: Left flank pain HISTORY OF PRESENT ILLNESS: 55-year-old male history of diabetes and hypertension who presents with left- sided flank pain of one-day duration describes it as sharp nonradiating rated as 10 out of 10 initially improved with morphine now 2 out of 10. States the onset of pain was sudden unprovoked by anything nothing alleviates or worsens the pain. He denies associated symptoms denies fevers or chills denies dysuria. CT showed left hydroureter with obstructing calculi in the distal left ureter measuring 7 mm [address] Gibson discussed the case with Dr. Sinclair who as ked for the patient to be admitted she will see the patient in the morning for stent placement. Patient will be admitted to medical service for pain control and evaluation by urology in the morning. Review of systems patient endorses a headache and chest discomfort initially at the peak of his pain after morphine his symptoms resolved. PAST MEDICAL/SURGICAL HISTORY: Hypertension Diabetes History of pancreatitis Gout Denies a surgical history SOCIAL HISTORY: Denies alcohol use Denies tobacco use Denies illicit drug use FAMILY HISTORY: Reviewed and none contributory to this admission ALLERGIES: Please see below. REVIEW OF SYSTEMS: 10 point review of systems complete all negative otherwise stated in HPI HOME MEDICATIONS: Please see below. PHYSICAL EXAMINATION: Constitutional: Awake and alert, in no apparent distress ENT: Sclera are clear. Mucosa is moist. Respiratory: Lungs CTA bilaterally. No respiratory distress. Cardiovascular: RRR S1 and S2 are normal, no murmur Gastrointestinal: Abdomen is soft, non distended, non tender, BS present. Musculoskeletal: No lower extremity edema. no CVA tenderness. Neurologic: No focal neurological deficit. Mental Status: A&O x3, normal affect Skin: Warm, dry LABORATORY DATA: See below. IMAGING: See chart CT results reviewed impressions: Left hydroureter with obstructing calculi in the distal left ureter measuring 7 mm and 1 cm. Left perinephric stranding representing inflammation/infection. Cirrhosis. MICROBIOLOGY: Please see below. ASSESSMENT/PLAN 55-year-old male history of hypertension diabetes found to have obstructing distal left ureter stones. Admitted to medical service for pain control and evaluation by urology in the morning likely for procedure. # Left obstructing ureterolithiasis with left hydroureter: Admit to med/surg for pain control. Tylenol for pain morphine IV for breakthrough pain. For procedure in the morning. Urology consult Dr. Sinclair appreciate recommendations. # GUEVARA: Mild elevation in creatinine 1.32 likely resulted from the obstruction. Monitor BMP in the morning. No IV fluids. Hold lisinopril for now. Avoid Nephrotoxins. # Hypertension: Initially likely elevated above baseline from the pain. Pain control. Continue home anti-hypertensive meds. Monitor and titrate. The Cipro is on hold. # DM: ISS. Frequent Accu-Cheks. Hypoglycemic precautions. Hold home metformin # DVT prophylaxis: Ambulating. ACDs/TEDs. A [facility] Hospitalist Vital Signs Vital Signs Date Time Temp Pulse Resp B/P (MAP) Pulse Ox O2 Delivery O2 Flow Rate FiO2 12/26/20 22:51 58 159/101 (120) 95 12/26/20 21:17 18 Room Air 12/26/20 20:39 98.5 Laboratory Data Labs 24H Laboratory Tests 2 12/26/20 21:03: Nucleated Red Blood Cells % (auto) 0.0, Anion Gap 3L, Glomerular Filtration Rate > 60.0, Calcium Level 9.6, Total Bilirubin 0.4, Aspartate Amino Transf (AST/SGOT) 33, Alanine Aminotransferase (ALT/SGPT) 71, Alkaline Phosphatase 155H, Total Protein 7.3, Albumin 3.9, Albumin/Globulin Ratio 1.1 12/26/20 22:25: Urine Color STRAW, Urine Appearance CLEAR, Urine pH 6.0, Urine Specific [place] 1.009, Urine Protein NEGATIVE, Urine Glucose (Auto)(UA) NEGATIVE, Urine Ketones (Auto) NEGATIVE, Urine Blood 3+H, Urine Nitrite NEGATIVE, Urine Bilirubin NEGATIVE, Urine Urobilinogen 0.2, Urine Leukocyte Esterase (Auto) NEGATIVE, Urine WBC (Auto) 3, Urine RBC (Auto) TNTCH, Urine Hyaline Casts (Auto) 0, Urine Bacteria (Auto) NEGATIVE, Urine Squamous Epithelial Cells 0, Urine Mucus (Auto) SMALL, Urine Sperm (Auto) CBC/BMP Laboratory Tests 12/26/20 21:03 Home Medications Scheduled Amlodipine Besylate (Amlodipine Besylate) 5 Mg Tablet, 5 MG PO DAILY Carvedilol (Carvedilol) 25 Mg Tab, 25 MG PO BID Lisinopril (Lisinopril) 40 Mg Tab, 40 MG PO DAILY Metformin HCl (Metformin HCl) 1,000 Mg Tablet, 1,000 MG PO BID Scheduled PRN Ibuprofen (Ibuprofen) 800 Mg Tablet, 800 MG PO BID PRN for PAIN Allergies Coded Allergies: No Known Allergies (Unverified , 04/27/18) A-FIB/CHADSVASC A-FIB History Current/History of A-Fib/PAF?: No RIVKA ARROYO MD Dec 26, 2020 23:34
[2020-12-27] MEDS: CARVedilol 12.5 MG TAB PO SCH ×3 (00:29→11:07)
[2020-12-27] MEDS: DOCUSATE SODIUM 100MG CAPSULE PO SCH ×2 (00:29→08:06)
[2020-12-27] MEDS: HumaLOG INSULIN (NovoLOG) PER UNIT SC SCH ×3 (00:33→11:28)
[2020-12-27 01:12] LABS: RSV AMPLIFICATION NEGATIVE (NEGATIVE)
[2020-12-27 01:44] VITALS: BP 150/90
[2020-12-27 06:00] VITALS: BP 139/92
[2020-12-27 06:28] LABS: HEMATOCRIT 40.4 % (42.0-52.0); HEMOGLOBIN 13.5 g/dl (13.5-17.5); MEAN CORPUSCULAR HEMOGLOBIN 30.8 pg (27.0-33.0); MEAN CORPUSCULAR HGB CONC 33.4 g/dl (32.0-36.5); PLATELET COUNT, AUTOMATED 107 10^3/uL (150-450); RED BLOOD COUNT 4.39 10^6/uL (4.30-6.10); WHITE BLOOD COUNT 5.4 10^3/uL (4.0-10.0)
[2020-12-27 06:53] LABS: ALBUMIN 3.4 GM/DL (3.2-5.2); ALT/SGPT 58 U/L (12-78); BILIRUBIN,TOTAL 0.4 MG/DL (0.2-1.0); BLOOD UREA NITROGEN 17 MG/DL (7-18); CALCIUM LEVEL 8.8 MG/DL (8.5-10.1); CARBON DIOXIDE LEVEL 31 MEQ/L (21-32); CHLORIDE LEVEL 110 MEQ/L (98-107); CREATININE FOR GFR 1.08 MG/DL (0.70-1.30); GLOMERULAR FILTRATION RATE > 60.0 (>56); GLUCOSE, FASTING 122 MG/DL (70-100); MAGNESIUM LEVEL 1.7 MG/DL (1.8-2.4); POTASSIUM SERUM 3.8 MEQ/L (3.5-5.1); SODIUM LEVEL 143 MEQ/L (136-145); TOTAL PROTEIN 6.6 GM/DL (6.4-8.2)
[2020-12-27] MEDS ORDERED: MAG SULF 1GM/100ML (MAG RUN) 1 GM in IV 1 EA IV ONE (09:00)
[2020-12-27] MEDS ORDERED: amLODIPine 5 MG TAB PO SCH (09:00)
--- NOTE | 2020-12-27 09:32 | ECGEPIP ---
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
[2020-12-27 10:00] VITALS: BP 138/92
[2020-12-27 11:07] VITALS: BP 158/96
[2020-12-27] MEDS ORDERED: fentaNYL 100 MCG/2 ML INJECTION (J3010) As Ordered ONE (11:49)
[2020-12-27] MEDS ORDERED: MIDAZOLAM INJ 2MG/2ML VIAL (J2250 PER 1MG) As Ordered ONE (11:49)
[2020-12-27] MEDS ORDERED: LIDOCAINE 2% 100MG/5ML SDV (FOR ANES.) As Ordered ONE (11:50)
[2020-12-27] MEDS ORDERED: dexameTHASONE 4 MG/ML 1ML VIAL (J1100 PER 1MG) As Ordered ONE (11:50)
[2020-12-27] MEDS ORDERED: propofoL 200 MG/20 ML VIAL As Ordered ONE (11:50)
[2020-12-27] MEDS ORDERED: ONDANSETRON 4MG/2ML VIAL As Ordered ONE (11:50)
[2020-12-27] MEDS ORDERED: ACETAMINOPHEN 1000MG 100ML IV BTL (OFIRMEV) (J0131 PER 10MG) As Ordered ONE (11:55)
--- NOTE | 2020-12-27 12:15 | REP ---
INDICATION: Uretal stone. COMPARISON: 11/08/2016, CT 12/26/2020. TECHNIQUE: Real-time sonographic evaluation of the kidneys is performed. FINDINGS: Renal cortical echogenicity pattern is normal bilaterally and contours are smooth. There is no significant hydronephrosis bilaterally. Multiple intrarenal calculi are seen within the right kidney, a calculus in the mid right kidney measures 7 mm and another in the lower pole of the right kidney measures 7 mm. No renal mass is seen. The right kidney measures 10.4 x 4.8 x 5.1 cm. Left renal dimensions are 11.4 x 5.6 x 5.8 cm. The urinary bladder is not well distended and not well evaluated. IMPRESSION: No significant hydronephrosis. Right renal calculi. <Electronically signed by Hiro Triplett > 12/27/20 [id number]
--- NOTE | 2020-12-27 13:55 | REP ---
INDICATION: ureter stone. COMPARISON: CT 12/26/2020. TECHNIQUE: AP view abdomen and pelvis. FINDINGS: Bowel gas pattern is normal with no dilated bowel loops identified. As seen on the CT exam, there is a calculus in the distal left ureter measuring approximately 1 cm in diameter. Slightly smaller calculus is seen just superior to that in the left ureter. There are multiple subcentimeter calculi noted in the right kidney. There are moderate degenerative changes of the spine. IMPRESSION: As seen on the recent CT exam, 2 calculi are visualized in the distal left ureter as discussed above. <Electronically signed by Hiro Triplett > 12/27/20 [id number]
[2020-12-27 14:00] VITALS: BP 138/92
--- NOTE | 2020-12-27 14:27 | CR.PDOC ---
General Date of Consultation: Dec 27, 2020 Referring Provider: RIVKA ARROYO MD Consultation REASON FOR CONSULTATION/CHIEF COMPLAINT: Severe pain with hydronephrosis and 2 obstructing distal ureteral calculi HISTORY OF PRESENT ILLNESS: The patient is a 51-year-old gentleman with diabetes and high blood pressure who presented with a one-day history of severe left flank pain radiating to the groin. Originally the pain was 10 out of 10 but was controlled by morphine in the emergency room. T scan was done which showed a 7 mm and 1 cm distal left ureteral stones with hydroureter. There was multiple bilateral nephrolithiasis and on the right the largest was 4 mm and I only appreciated about one stone on the left. He was afebrile with a normal white blood count and a creatinine of 1.32. A urinalysis showed too numerous to count red blood cells and 3 white blood cells per high-power field. He was admitted to the hospital for pain control and surgical management. When I came in to see him this morning he had had no pain since he been in the emergency for many hours prior. We ordered a renal ultrasound which showed no further [place] but a KUB still shows a distal stones. I found out that his son is getting tomorrow and because there is no definitive reason for emergency surgery (unretractable pain, fever, sepsis, infection, significant nausea and vomiting, solitary kidney, or any renal dysfunction) it was decided that the patient could be sent home and scheduled as an outpatient so that he can enjoy the wedding tomorrow. If he develops any of the things mentioned he should come back to the ER emergently. Is in agreement with this plan. He denies any gross hematuria, history of kidney stones, dysuria or recurrent urinary tract infections, or any problems with irritative or obstructive voiding symptoms. ALLERGIES: Please see below. HOME MEDICATIONS: Please see below. PAST MEDICAL HISTORY: Hypertension Diabetes History of pancreatitis Gout PAST SURGICAL HISTORY: Denies any surgical history FAMILY HISTORY: Noncontributory SOCIAL HISTORY: He is with children. He does not drink alcohol, smoke cigarettes, and he denies any illicit drug use REVIEW OF SYSTEMS: A 12 system review was done and this was all negative except for what's in the HPI PHYSICAL EXAMINATION: VITAL SIGNS: Please see below. This is a well-developed well-nourished gentleman lying in a hospital bed in no apparent distress. He says that he is pain free. He is alert and oriented 3. His head is atraumatic and normocephalic. His eyes are PERRLA and EOMI. His trachea is midline and there is no significant supraclavicular or cervical adenopathy. His heart has a regular rate and rhythm. His lungs are clear to auscultation percussion. He has no CVA tenderness. His abdomen is soft and nontender without any rebound guarding or masses appreciated his extremities show no cyanosis clubbing or edema. Neurologic exam is nonfocal and his skin exam shows no significant abnormalities. LABORATORY DATA: Please see below. ASSESSMENT/PLAN: -First stone episode in a patient with a CT scan 12/26/20 showing bilateral nephrolithiasis with the largest stones on the right measuring up to 4 mm and may be 1 or 2 stones on the left. Also left hydroureteronephrosis to the level of the distal ureter where there was a 7 mm stone and a 1 cm stone seen. Patient has been afebrile and pain-free overnight. Renal ultrasound done 12/27/20 shows no significant hydroureteronephrosis but the KUB shows the stone still to be there. It is the patient's son's wedding tomorrow and it was decided to send him home so he can join the wedding and we will take care of the stones as an outpatient. He is to come back immediately if he develops any unretractable pain, fever, vomiting, or other significant issues. He should be sent with prophylactic antibiotics and pain medication. This was dictated with Dragon and not proofread for errors Vital Signs/I&O Vital Signs Date Time Temp Pulse Resp B/P (MAP) Pulse Ox O2 Delivery O2 Flow Rate FiO2 12/27/20 14:00 97.5 56 17 138/92 (107) 99 Room Air I&O- Last 24 Hours up to 6 AM 12/27/20 06:00 Intake Total 0 ml Output Total 0 ml Balance 0 ml Laboratory Data Labs 24H Laboratory Tests 2 12/26/20 21:03: Nucleated Red Blood Cells % (auto) 0.0, Anion Gap 3L, Glomerular Filtration Rate > 60.0, Calcium Level 9.6, Total Bilirubin 0.4, Aspartate Amino Transf (AST/SGOT) 33, Alanine Aminotransferase (ALT/SGPT) 71, Alkaline Phosphatase 155H, Total Protein 7.3, Albumin 3.9, Albumin/Globulin Ratio 1.1 12/26/20 21:08: POC Troponin I (Misc) 0.02 12/26/20 22:25: Urine Color STRAW, Urine Appearance CLEAR, Urine pH 6.0, Urine Specific [place] 1.009, Urine Protein NEGATIVE, Urine Glucose (Auto)(UA) NEGATIVE, Urine Ketones (Auto) NEGATIVE, Urine Blood 3+H, Urine Nitrite NEGATIVE, Urine Bilirubin NEGATIVE, Urine Urobilinogen 0.2, Urine Leukocyte Esterase (Auto) NEGATIVE, Urine WBC (Auto) 3, Urine RBC (Auto) TNTCH, Urine Hyaline Casts (Auto) 0, Urine Bacteria (Auto) NEGATIVE, Urine Squamous Epithelial Cells 0, Urine Mucus (Auto) SMALL, Urine Sperm (Auto) 12/27/20 00:19: Coronavirus (COVID-19)(PCR) NEGATIVE, Influenza Type A (RT-PCR) NEGATIVE, In fluenza Type B (RT-PCR) NEGATIVE, Respiratory Syncytial Virus (PCR) NEGATIVE 12/27/20 00:23: Bedside Glucose (Misc Panel) 104 12/27/20 05:27: Bedside Glucose (Misc Panel) 114H 12/27/20 06:14: Nucleated Red Blood Cells % (auto) 0.0, Anion Gap 2L, Glomerular Filtration Rate > 60.0, Calcium Level 8.8, Magnesium Level 1.7L, Total Bilirubin 0.4, Aspartate Amino Transf (AST/SGOT) 26, Alanine Aminotransferase (ALT/SGPT) 58, Alkaline Phosphatase 114, Total Protein 6.6, Albumin 3.4, Albumin/Globulin Ratio 1.1 12/27/20 11:15: Bedside Glucose (Misc Panel) 108H CBC/BMP Laboratory Tests 12/26/20 21:03 12/27/20 06:14 Allergies Coded Allergies: No Known Allergies (Unverified , 04/27/18) Home Medications Scheduled Amlodipine Besylate (Amlodipine Besylate) 5 Mg Tablet, 5 MG PO DAILY, (Reported) Carvedilol (Carvedilol) 25 Mg Tab, 25 MG PO BID, (Reported) Lisinopril (Lisinopril) 40 Mg Tab, 40 MG PO DAILY, (Reported) Metformin HCl (Metformin HCl) 1,000 Mg Tablet, 1,000 MG PO BID, (Reported) Scheduled PRN Ibuprofen (Ibuprofen) 800 Mg Tablet, 800 MG PO BID PRN for PAIN, (Reported) DACIA LARA MD Dec 27, 2020 14:27
[2020-12-27] MEDS ORDERED: ACET1TAB55 PO (15:10)
[2020-12-27] MEDS ORDERED: TRAM50TA2 PO (15:10)
--- NOTE | 2020-12-27 15:18 | DS.PDOC ---
Discharge Summary General Date of Admission Dec 26, 2020 at 23:21 Date of Discharge 12/27/20 Attending Physician: Brittany Nuñez MD Discharge Summary HISTORY OF PRESENT ILLNESS: 55-year-old male history of diabetes and hypertension who presents with left- sided flank pain of one-day duration describes it as sharp nonradiating rated as 10 out of 10 initially improved with morphine now 2 out of 10. States the onset of pain was sudden unprovoked by anything nothing alleviates or worsens the pain. He denies associated symptoms denies fevers or chills denies dysuria. CT showed left hydroureter with obstructing calculi in the distal left ureter measuring 7 mm [address] Gibson discussed the case with Dr. Sinclair who asked for the patient to be admitted she will see the patient in the morning for stent placement. Patient will be admitted to medical service for pain control and treatment of left distal ureterolithiasis and evaluation by urology. HOSPITAL COURSE: Patient required no IV pain medications overnight. In the AM on 12/27/20, he denied pain on examination. He also denies any s/s of passing stone over the evening. Repeat AbdXR: As seen on the recent CT exam, 2 calculi are visualized in the distal left ureter as discussed above. Renal US: No significant hydrone phrosis, right renal calculi. Decision was made by urology to not perform procedure. GUEVARA had resolved on AM labs, he was urinating well without pain. Recommendations were to discharge home with urology office to f/u with him after the weekend to schedule o/p procedure. patient was in agreement. PAST MEDICAL/SURGICAL HISTORY: Hypertension Diabetes History of pancreatitis Gout Denies a surgical history SOCIAL HISTORY: Denies alcohol use Denies tobacco use Denies illicit drug use FAMILY HISTORY: Reviewed and none contributory to this admission ALLERGIES: Please see below. DISCHARGE MEDICATIONS: Please see below. PHYSICAL EXAMINATION: VS: Please see below Constitutional: Awake and alert, in no apparent distress ENT: Sclera are clear. Mucosa is moist. Respiratory: Lungs CTA bilaterally. No respiratory distress. Cardiovascular: RRR S1 and S2 are normal, no murmur Gastrointestinal: Abdomen is soft, non distended, non tender, BS present. Musculoskeletal: No lower extremity edema. no CVA tenderness. Neurologic: No focal neurological deficit. Mental Status: A&O x3, normal affect Skin: Warm, dry LABORATORY DATA: See below. IMAGING: Renal US: No significant hydronephrosis. Right renal calculi. CT results reviewed impressions: Left hydroureter with obstructing calculi in the distal left ureter measuring 7 mm and 1 cm. Left perinephric stranding representing inflammation/infection. Cirrhosis. MICROBIOLOGY: Please see below. ASSESSMENT:55-year-old male history of hypertension diabetes found to have obstructing distal left ureter stones. Admitted to medical service for pain control and evaluation by urology in the morning likely for procedure. PLAN: # Left obstructing ureterolithiasis with left hydroureter: Urology assessed and decided surgery not needed currently but likely can be done o/p. Patient is to f/u with urology as o/p for procedure. D/c with tylenol, ceftin BID. # GUEVARA: Resolved. # Hypertension: Stable. c/w home meds # DM: Stable. c/w home meds DISPOSITION: D/c home to f/u with urology as o/p. TIME SPENT ON DISCHARGE: 35 minutes. Vital Signs/I&Os Vital Signs Date Time Temp Pulse Resp B/P (MAP) Pulse Ox O2 Delivery O2 Flow Rate FiO2 12/27/20 14:00 97.5 56 17 138/92 (107) 99 Room Air I&O- Last 24 Hours up to 6 AM 12/27/20 06:00 Intake Total 0 ml Output Total 0 ml Balance 0 ml Laboratory Data Labs 24H Laboratory Tests 2 12/26/20 21:03: Nucleated Red Blood Cells % (auto) 0.0, Anion Gap 3L, Glomerular Filtration Rate > 60.0, Calcium Level 9.6, Total Bilirubin 0.4, Aspartate Amino Transf (AST/SGOT) 33, Alanine Aminotransferase (ALT/SGPT) 71, Alkaline Phosphatase 155H, Total Protein 7.3, Albumin 3.9, Albumin/Globulin Ratio 1.1 12/26/20 21:08: POC Troponin I (Misc) 0.02 12/26/20 22:25: Urine Color STRAW, Urine Appearance CLEAR, Urine pH 6.0, Urine Specific [place] 1.009, Urine Protein NEGATIVE, Urine Glucose (Auto)(UA) NEGATIVE, Urine Ketones (Auto) NEGATIVE, Urine Blood 3+H, Urine Nitrite NEGATIVE, Urine Bilirubin NEGATIVE, Urine Urobilinogen 0.2, Urine Leukocyte Esterase (Auto) NEGATIVE, Urine WBC (Auto) 3, Urine RBC (Auto) TNTCH, Urine Hyaline Casts (Auto) 0, Urine Bacteria (Auto) NEGATIVE, Urine Squamous Epithelial Cells 0, Urine Mucus (Auto) SMALL, Urine Sperm (Auto) 12/27/20 00:19: Coronavirus (COVID-19)(PCR) NEGATIVE, Influenza Type A (RT-PCR) NEGATIVE, Influenza Type B (RT-PCR) NEGATIVE, Respiratory Syncytial Virus (PCR) NEGATIVE 12/27/20 00:23: Bedside Glucose (Misc Panel) 104 12/27/20 05:27: Bedside Glucose (Misc Panel) 114H 12/27/20 06:14: Nucleated Red Blood Cells % (auto) 0.0, Anion Gap 2L, Glomerular Filtration Rate > 60.0, Calcium Level 8.8, Magnesium Level 1.7L, Total Bilirubin 0.4, Aspartate Amino Transf (AST/SGOT) 26, Alanine Aminotransferase (ALT/SGPT) 58, Alkaline Phosphatase 114, Total Protein 6.6, Albumin 3.4, Albumin/Globulin Ratio 1.1 12/27/20 11:15: Bedside Glucose (Misc Panel) 108H CBC/BMP Laboratory Tests 12/26/20 21:03 12/27/20 06:14 FSBS Laboratory Tests Test 12/27/20 00:23 12/27/20 05:27 12/27/20 11:15 Range/Units Bedside Glucose (Misc Panel) 104 114 108 70-105 MG/DL Discharge Medications Scheduled Amlodipine Besylate (Amlodipine Besylate) 5 Mg Tablet, 5 MG PO DAILY, (Reported) Carvedilol (Carvedilol) 25 Mg Tab, 25 MG PO BID, (Reported) Cefuroxime Axetil (Cefuroxime) 500 Mg Tablet, 500 MG PO BID Lisinopril (Lisinopril) 40 Mg Tab, 40 MG PO DAILY, (Reported) Metformin HCl (Metformin HCl) 1,000 Mg Tablet, 1,000 MG PO BID, (Reported) Scheduled PRN Acetaminophen (Acetaminophen) 325 Mg Tablet, 650 MG PO Q6HP PRN for PAIN OR FEVER Ibuprofen (Ibuprofen) 800 Mg Tablet, 800 MG PO BID PRN for PAIN, (Reported) Allergies Coded Allergies: No Known Allergies (Unverified , 04/27/18) Brittany Nuñez MD Dec 27, 2020 15:18
[2020-12-27] MEDS ORDERED: CEFU50TA PO (15:20)
== END 2020-12-27 16:19 | disposition home or self-care (01) | DRG 465 ==
LOC: M ED 20:38 → M ED INP 23:21 → ENRESERV 12-27 01:23 → M MSPAV 12-27 01:45
PROVIDERS: ADMIT Family Medicine; ATTEND Internal Medicine
DX: N13.2 Hydronephrosis with renal and ureteral calculous obstruction (principal); N17.9 Acute kidney failure, unspecified; I10 Essential (primary) hypertension; E11.9 Type 2 diabetes mellitus without complications; M10.9 Gout, unspecified; Z79.84 Long term (current) use of oral hypoglycemic drugs; Z79.899 Other long term (current) drug therapy; Z20.822 Contact with and (suspected) exposure to COVID-19

== ENCOUNTER → 2021-01-20 | Outpatient (REF) | payer OTHER ==
[~2021-01-20] MED LIST changes: +ACET1TAB55 PO; +AMLO1TAB24 PO; +CEFU50TA PO; +TRAM50TA2 PO
[2021-01-20 12:18] LABS: BASO % 0.4 % (0.0-1.0); EOS # 0.4 10^3/uL (0.0-0.5); EOS % 8.7 % (0.0-3.0); HEMATOCRIT 43.3 % (42.0-52.0); HEMOGLOBIN 14.1 g/dl (13.5-17.5); LYMPH # 1.4 10^3/uL (1.5-5.0); MEAN CORPUSCULAR HEMOGLOBIN 30.6 pg (27.0-33.0); MEAN CORPUSCULAR HGB CONC 32.6 g/dl (32.0-36.5); MEAN CORPUSCULAR VOLUME 93.9 fl (80.0-96.0); MONO # 0.6 10^3/uL (0.0-0.8); MONO % 12.2 % (2.0-8.0); NEUTROPHILS # 2.6 10^3/uL (1.5-8.5); NEUTROPHILS % 51.5 % (36.0-66.0); PLATELET COUNT, AUTOMATED 131 10^3/uL (150-450); RED BLOOD COUNT 4.61 10^6/uL (4.30-6.10); WHITE BLOOD COUNT 5.1 10^3/uL (4.0-10.0)
[2021-01-20 12:35] LABS: HEMOGLOBIN A1c 6.1 %
[2021-01-20 12:48] LABS: ALT/SGPT 33 U/L (12-78); BILIRUBIN,TOTAL 0.6 MG/DL (0.2-1.0); BLOOD UREA NITROGEN 15 MG/DL (7-18); CALCIUM LEVEL 9.1 MG/DL (8.5-10.1); CARBON DIOXIDE LEVEL 28 MEQ/L (21-32); CHLORIDE LEVEL 111 MEQ/L (98-107); CHOLESTEROL LEVEL 132 MG/DL (<200); GLOMERULAR FILTRATION RATE > 60.0 (>56); GLUCOSE, FASTING 120 MG/DL (70-100); HDL CHOLESTEROL 37 MG/DL (>40); POTASSIUM SERUM 4.3 MEQ/L (3.5-5.1); SODIUM LEVEL 142 MEQ/L (136-145); TRIGLYCERIDES LEVEL 98 MG/DL (<150)
[2021-01-20 12:49] LABS: ALBUMIN 3.8 GM/DL (3.2-5.2); CHOLESTEROL RISK RATIO 3.567 (<5); LDL CHOLESTEROL 75 MG/DL (<100); NON-HDL-C 95 MG/DL; TOTAL PROTEIN 7.2 GM/DL (6.4-8.2)
== END ==
LOC: M LAB REF 11:26
PROVIDERS: ATTEND Nurse Practitioner Family
DX: E78.5 Hyperlipidemia, unspecified (principal); I10 Essential (primary) hypertension

== ENCOUNTER → 2021-01-22 | Outpatient (CLI) | payer OTHER ==
--- NOTE | 2021-01-23 10:53 | REP ---
INDICATION: HYDRONEPHROSIS WITH RENAL AND URETERAL CALCULOUS OBSTRUCTION COMPARISON: 12/26/2020 TECHNIQUE: Axial noncontrast images from the lung bases to the pubic symphysis with coronal and sagittal reformations. This CT examination was performed using the following dose reduction techniques: Automated exposure control, adjustment of mA and/or kv according to the patient's size, and use of iterative reconstruction technique. FINDINGS: Lung bases are clear. Visualized heart and pericardium normal. Liver demonstrates nodular contour consistent with cirrhosis., Splenomegaly suggests associated portal hypertension. Pancreas, gallbladder, and bilateral adrenal glands are normal. Kidneys demonstrate mild chronic appearing perinephric stranding and multiple bilateral nonobstructing nephroliths measuring up to 6 mm in the right kidney and 4 mm in the left kidney. Despite the lack of hydroureteronephrosis, multiple layering distal left ureteral calculi are identified approaching the ureterovesical junction measuring up to roughly 9 mm. Right ureter is normal. The enteric system is unremarkable and without obstruction or acute inflammatory process. Normal terminal ileum and appendix identified in the right lower quadrant. Pelvis demonstrates normal bladder and mildly prominent prostate/seminal vesicles.. No ascites. No free air. No adenopathy. No focal inflammatory stranding. Abdominal aorta without aneurysm. Musculoskeletal structures are intact and without acute osseous abnormality. IMPRESSION: 1. Bilateral nephrolithiasis along with multiple calculi at the left distal ureter/UVJ measuring up to 9 mm without associated hydronephrosis. Findings are similar to 12/26/2020 2. Findings consistent with cirrhosis and portal hypertension. <Electronically signed by Edward East > 01/23/21 [id number]
== END ==
LOC: M RAD 15:42
PROVIDERS: ATTEND Nurse Practitioner Women's Health
DX: N20.2 Calculus of kidney with calculus of ureter (principal)

== ENCOUNTER → 2021-02-24 | Outpatient (REF) | payer OTHER ==
[2021-02-24 17:32] LABS: BASO % 0.7 % (0.0-1.0); EOS # 0.5 10^3/uL (0.0-0.5); EOS % 8.1 % (0.0-3.0); HEMATOCRIT 45.1 % (42.0-52.0); HEMOGLOBIN 14.5 g/dl (13.5-17.5); LYMPH % 33.3 % (24.0-44.0); MEAN CORPUSCULAR HGB CONC 32.2 g/dl (32.0-36.5); MEAN CORPUSCULAR VOLUME 93.2 fl (80.0-96.0); MONO # 0.7 10^3/uL (0.0-0.8); MONO % 12.1 % (2.0-8.0); NEUTROPHILS # 2.7 10^3/uL (1.5-8.5); NEUTROPHILS % 45.6 % (36.0-66.0); PLATELET COUNT, AUTOMATED 151 10^3/uL (150-450); RED BLOOD COUNT 4.84 10^6/uL (4.30-6.10); WHITE BLOOD COUNT 5.9 10^3/uL (4.0-10.0)
[2021-02-24 17:57] LABS: ALBUMIN 3.9 GM/DL (3.2-5.2); ALT/SGPT 49 U/L (12-78); BILIRUBIN,TOTAL 0.6 MG/DL (0.2-1.0); BLOOD UREA NITROGEN 16 MG/DL (7-18); CALCIUM LEVEL 9.4 MG/DL (8.5-10.1); CARBON DIOXIDE LEVEL 30 MEQ/L (21-32); CHLORIDE LEVEL 106 MEQ/L (98-107); CREATININE FOR GFR 1.05 MG/DL (0.70-1.30); GLOMERULAR FILTRATION RATE > 60.0 (>56); GLUCOSE, FASTING 97 MG/DL (70-100); POTASSIUM SERUM 4.5 MEQ/L (3.5-5.1); SODIUM LEVEL 141 MEQ/L (136-145); TOTAL PROTEIN 7.4 GM/DL (6.4-8.2)
== END ==
LOC: M LAB REF 16:30
PROVIDERS: ATTEND Nurse Practitioner Family
DX: Z01.812 Encounter for preprocedural laboratory examination (principal)

== ENCOUNTER → 2021-02-25 | Outpatient (CLI) | payer OTHER ==
[2021-02-25 08:40] LABS: HEMATOCRIT 41.8 % (42.0-52.0); HEMOGLOBIN 13.7 g/dl (13.5-17.5); INR 1.12; MEAN CORPUSCULAR HEMOGLOBIN 29.9 pg (27.0-33.0); MEAN CORPUSCULAR HGB CONC 32.8 g/dl (32.0-36.5); MEAN CORPUSCULAR VOLUME 91.3 fl (80.0-96.0); PLATELET COUNT, AUTOMATED 137 10^3/uL (150-450); PROTHROMBIN TIME 14.7 SECONDS (12.5-14.3); RED BLOOD COUNT 4.58 10^6/uL (4.30-6.10); WHITE BLOOD COUNT 5.3 10^3/uL (4.0-10.0)
[2021-02-25 08:41] LABS: PARTIAL THROMBOPLASTIN TIME 35.1 SECONDS (24.2-38.5)
[2021-02-25 08:49] LABS: BLOOD UREA NITROGEN 16 MG/DL (7-18); CALCIUM LEVEL 8.9 MG/DL (8.5-10.1); CARBON DIOXIDE LEVEL 30 MEQ/L (21-32); CHLORIDE LEVEL 110 MEQ/L (98-107); CREATININE FOR GFR 1.03 MG/DL (0.70-1.30); GLOMERULAR FILTRATION RATE > 60.0 (>56); GLUCOSE, FASTING 117 MG/DL (70-100); SODIUM LEVEL 143 MEQ/L (136-145)
--- NOTE | 2021-02-25 09:08 | REP ---
INDICATION: CALCULUS OF URETER- LABS AND EKG FIRST COMPARISON: 12/15/2015 TECHNIQUE: PA and lateral. FINDINGS: The mediastinum and cardiac silhouette are normal. The lung tello are clear and without acute consolidation, effusion, or pneumothorax. The skeletal structures are intact and normal. IMPRESSION: No acute cardiopulmonary process. <Electronically signed by Edward East > 02/25/21 [id number]
[2021-02-25 09:10] LABS: APPEARANCE, URINE HAZY (CLEAR); BACTERIA, URINE AUTO NEGATIVE (NEGATIVE); BILIRUBIN, URINE AUTO NEGATIVE (NEGATIVE); BLOOD, URINE BLOOD 3+ (NEGATIVE); COLOR, URINE YELLOW (YELLOW); GLUCOSE, URINE (UA) AUTO NEGATIVE (NEGATIVE); KETONE, URINE AUTO NEGATIVE (NEGATIVE); LEUKOCYTE ESTERASE, URINE AUTO TRACE (NEGATIVE); MUCUS, URINE SMALL (NEGATIVE); NITRITE, URINE AUTO NEGATIVE (NEGATIVE); PROTEIN, URINE AUTO 1+ mg/dL (NEGATIVE); RBC, URINE AUTO TNTC /HPF (0-3); SPECIFIC GRAVITY URINE AUTO 1.016 (1.002-1.035); SQUAMOUS EPITHELIAL CELL UR AU 0 /HPF (0-6); UROBILINOGEN, URINE AUTO 0.2 mg/dL (0.0-2.0); WBC, URINE AUTO 16 /HPF (0-3)
--- NOTE | 2021-02-26 05:53 | ECGEPIP ---
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
== END ==
LOC: M LAB 07:28
PROVIDERS: ATTEND Nurse Practitioner Women's Health
DX: Z01.818 Encounter for other preprocedural examination (principal); N20.1 Calculus of ureter; R00.1 Bradycardia, unspecified

== ENCOUNTER → 2021-02-25 | Outpatient (CLI) | payer OTHER | LOC: M LABSMTC 09:41 | PROVIDERS: ATTEND Anesthesiology | DX: Z01.812 Encounter for preprocedural laboratory examination (principal); Z20.822 Contact with and (suspected) exposure to COVID-19 ==

== ENCOUNTER 2021-03-02 06:15 | Day surgery (SDC) | payer OTHER ==
[~2021-03-02] VITALS: Ht 172.7 cm; Wt 74.8 kg
[~2021-03-02 06:15] MED LIST changes: +LIDOCAINE 1% MDV 20ML VIAL SQ PRN
[2021-03-02] MEDS ORDERED: MIDAZOLAM INJ 2MG/2ML VIAL (J2250 PER 1MG) As Ordered ONE (06:54)
[2021-03-02] MEDS ORDERED: fentaNYL 100 MCG/2 ML INJECTION (J3010) As Ordered ONE ×3 (06:57→09:12)
[2021-03-02] MEDS ORDERED: ceFAZolin SOD 2 GM in IV 1 EA IV ONE (07:00)
[2021-03-02] MEDS ORDERED: LR 1,000 ML IV ONE (07:05)
[2021-03-02] MEDS ORDERED: CONRAY-60 60% 50ML VIAL (Q9961) As Ordered ONE (07:18)
[2021-03-02] MEDS ORDERED: ONDANSETRON 4MG/2ML VIAL As Ordered ONE (07:47)
[2021-03-02] MEDS ORDERED: dexameTHASONE 4 MG/ML 1ML VIAL (J1100 PER 1MG) As Ordered ONE (07:47)
[2021-03-02] MEDS ORDERED: LIDOCAINE 2% 100MG/5ML SDV (FOR ANES.) As Ordered ONE (07:47)
[2021-03-02] MEDS ORDERED: ACETAMINOPHEN 1000MG 100ML IV BTL (OFIRMEV) (J0131 PER 10MG) As Ordered ONE (07:50)
[2021-03-02] MEDS ORDERED: KETOROLAC 60MG 2ML VIAL As Ordered ONE (07:50)
[2021-03-02] MEDS ORDERED: propofoL 200 MG/20 ML VIAL As Ordered ONE (07:58)
[2021-03-02] MEDS ORDERED: ePHEDrine SULFATE 25 MG/5 ML(5MG/ML) SYRINGE As Ordered ONE (08:04)
[2021-03-02] MEDS ORDERED: OXYB5TAB10 PO (09:09)
[2021-03-02] MEDS ORDERED: CIPR250T3 PO (09:09)
[2021-03-02] MEDS ORDERED: PYRI1TAB5 PO (09:09)
[2021-03-02] MEDS ORDERED: HYDR-3713 PO (09:09)
[2021-03-02] MEDS ORDERED: LR 1,000 ML IV SCH (09:15)
[2021-03-02] MEDS ORDERED: fentaNYL 100 MCG/2 ML INJECTION (J3010) IV PRN (09:15)
[2021-03-02] MEDS ORDERED: ONDANSETRON 4MG/2ML VIAL IV PRN (09:15)
[2021-03-02] MEDS: oxyCODONE 5MG TAB PO PRN ×2 (09:26→09:59)
--- NOTE | 2021-03-02 09:33 | REP ---
INDICATION: LEFT URETERAL STENT REPLACEMENT. COMPARISON: None. TECHNIQUE: Six C-arm views abdomen and pelvis. FINDINGS: Contrast is injected into the left ureter. The visualized portions appear grossly unremarkable. Contrast partially opacifies the left pelvocaliceal system. A left ureteral stent is placed. The proximal end is coiled in the region of the left pelvocaliceal system and the distal end is coiled in the region of the urinary bladder. IMPRESSION: 12 seconds fluoroscopy time utilized. <Electronically signed by Hiro Triplett > 03/02/21 0902
[2021-03-02 10:50] VITALS: BP 166/104
--- NOTE | 2021-03-02 11:11 | ROOPDOC ---
[facility] Report Of Operation Report of Operation DATE OF PROCEDURE: 03/02/21 PREPROCEDURE DIAGNOSES: [left ureteral stones]. POSTPROCEDURE DIAGNOSES: [same]. PROCEDURE: [cysto fluoro retrograde rigid uscope laser lithotripsy basket stone extraction stent placement (left side)]. SURGEON: [Jeffrey Borrero]MD CLOTH FINISHING RANGE OPERATOR CHIEF: MD ANESTHESIA: [general]. ESTIMATED BLOOD LOSS: Approximately [1] mL. COMPLICATIONS: [none]. REMARKS: . PROCEDURE NOTE: [56yo fellow with left ureteral stones by ct last month. I reviewed ct myself. Surgery discussed. No guarantees given. Questions answered. Risks discussed including infection, pain, bleeding, scarring, failure of surgery, injury to gu tract and others]. DESCRIPTION OF PROCEDURE: [Met with pt in preop area. Consent obtained. Pt brought to urology room. Surgery done under coverage of iv antibiotic. Time out performed. Dorsal litho position. Well padded. Prep'd and draped in sterile fashion. Rigid cystoscopy performed. No stone in bladder. Mod bph. Left uo found. Retrograde performed under fluoro. Filling defects in distal ureter noted. Wire advanced up ureter into kidney as seen using fluoro. Fluoro used intermittently. Some images saved. Rigid ureteroscopy performed. Stones encountered. Too large for simple extraction. Laser lithotripsy performed. It took a while to fragment the stones. It took a while to basket the fragments. I went up and down the ureter to basket fragments probaby 15 times. Fortunately the stones were distal in location. Once satisfied, 6fr multilength stent placed using Seldinger technique. At least one stone was impacted in the wall of the ureter. Pt tolerated everything well. Stone fragments collected for analysis. Bladder emptied and cystoscope removed. Pt left room in satisfactory condition. Home on Cipro, Pyridium, oxybutynin and hydrocodone/acet. Talked with after surgery. EDWIN BORRERO MD Mar 02, 2021 11:11
== END 2021-03-02 11:31 | disposition home or self-care (01) ==
LOC: M SDC 06:15
PROVIDERS: ATTEND Urology
DX: N20.0 Calculus of kidney (principal); E78.00 Pure hypercholesterolemia, unspecified; E11.9 Type 2 diabetes mellitus without complications; I10 Essential (primary) hypertension; M10.9 Gout, unspecified; Z79.84 Long term (current) use of oral hypoglycemic drugs; Z79.899 Other long term (current) drug therapy; F17.218 Nicotine dependence, cigarettes, with other nicotine-induced disorders
CPT/HCPCS: 52356; 74420; 82365; 88300; C1769; C2617; J0131; J0690; J1100; J1885; J2250; J2405; J3010; Q9961

== ENCOUNTER 2021-03-02 22:31 | Emergency (ER) | payer OTHER ==
[~2021-03-02] VITALS: Ht 172.7 cm; Wt 75.0 kg
[~2021-03-02 22:31] MED LIST changes: +CIPR250T3 PO; +HYDR-3713 PO; -LIDOCAINE 1% MDV 20ML VIAL SQ PRN; +OXYB5TAB10 PO; +PYRI1TAB5 PO
[2021-03-03 00:24] VITALS: BP 116/67
== END 2021-03-03 01:16 | disposition left against medical advice (07) ==
LOC: M ED 22:31
DX: Z53.21 Procedure and treatment not carried out due to patient leaving prior to being seen by health care provider (principal)

== ENCOUNTER → 2022-11-15 | Outpatient (REF) | payer OTHER ==
[2022-11-15 17:19] LABS: BASO # 0.1 10^3/uL (0.0-0.2); BASO % 0.8 % (0.0-1.0); EOS # 0.3 10^3/uL (0.0-0.5); HEMATOCRIT 43.5 % (42.0-52.0); HEMOGLOBIN 14.9 g/dl (13.5-17.5); LYMPH % 32.9 % (24.0-44.0); MEAN CORPUSCULAR HEMOGLOBIN 30.8 pg (27.0-33.0); MEAN CORPUSCULAR HGB CONC 34.3 g/dl (32.0-36.5); MEAN CORPUSCULAR VOLUME 89.9 fl (80.0-96.0); MONO # 0.7 10^3/uL (0.0-0.8); MONO % 11.1 % (2.0-8.0); NEUTROPHILS # 3.2 10^3/uL (1.5-8.5); PLATELET COUNT, AUTOMATED 156 10^3/uL (150-450); RED BLOOD COUNT 4.84 10^6/uL (4.30-6.10); WHITE BLOOD COUNT 6.2 10^3/uL (4.0-10.0)
[2022-11-15 17:32] LABS: HEMOGLOBIN A1c 13.4 % (4.0-6.0)
[2022-11-15 17:49] LABS: THYROID STIMULATING HORMONE 4.961 uIU/ML (0.55-4.78)
[2022-11-15 17:50] LABS: FREE T4 1.15 NG/DL (0.89-1.76)
[2022-11-15 18:00] LABS: ALBUMIN 3.3 G/DL (3.2-5.2); ALKALINE PHOSPHATASE 157 U/L (46-116); ALT/SGPT 37 U/L (7.0-40); AST/SGOT 22 U/L (<34); BILIRUBIN,TOTAL 0.4 MG/DL (0.3-1.2); BLOOD UREA NITROGEN 11 MG/DL (9-23); CALCIUM LEVEL 8.8 MG/DL (8.5-10.1); CARBON DIOXIDE LEVEL 29 MMOL/L (20-31); CHLORIDE LEVEL 101 MMOL/L (98-107); CHOLESTEROL LEVEL 159 MG/DL (<200); CHOLESTEROL RISK RATIO 5.61 (<5); GLOMERULAR FILTRATION RATE > 60.0 (>56); GLUCOSE, FASTING 391 MG/DL (60-100); HDL CHOLESTEROL 28.3 MG/DL (>40); LDL CHOLESTEROL 55.1 MG/DL (<100); NON-HDL-C 131 MG/DL; POTASSIUM SERUM 4.7 MMOL/L (3.5-5.1); SODIUM LEVEL 136 MMOL/L (136-145); TOTAL PROTEIN 6.6 G/DL (5.7-8.2); TRIGLYCERIDES LEVEL 378 MG/DL (<150)
== END ==
LOC: M LAB REF 17:00
PROVIDERS: ATTEND Nurse Practitioner Family
DX: Z13.228 Encounter for screening for other metabolic disorders (principal)

== ENCOUNTER → 2023-05-11 | Outpatient (REF) | payer OTHER ==
[2023-05-11 18:24] LABS: ALBUMIN 3.7 G/DL (3.2-5.2); ALKALINE PHOSPHATASE 156 U/L (46-116); ALT/SGPT 30 U/L (7.0-40); AST/SGOT 21 U/L (<34); BILIRUBIN,TOTAL 0.7 MG/DL (0.3-1.2); BLOOD UREA NITROGEN 13 MG/DL (9-23); CALCIUM LEVEL 9.1 MG/DL (8.5-10.1); CARBON DIOXIDE LEVEL 27 MMOL/L (20-31); CHLORIDE LEVEL 105 MMOL/L (98-107); CHOLESTEROL LEVEL 132 MG/DL (<200); CHOLESTEROL RISK RATIO 4.03 (<5); CREATININE FOR GFR 0.99 MG/DL (0.70-1.30); GLOMERULAR FILTRATION RATE > 60.0 (>56); GLUCOSE, FASTING 113 MG/DL (60-100); HDL CHOLESTEROL 32.7 MG/DL (>40); LDL CHOLESTEROL 81.1 MG/DL (<100); NON-HDL-C 99.3 MG/DL; POTASSIUM SERUM 4.5 MMOL/L (3.5-5.1); SODIUM LEVEL 141 MMOL/L (136-145); THYROID STIMULATING HORMONE 3.532 uIU/ML (0.55-4.78); TOTAL PROTEIN 7.1 G/DL (5.7-8.2); TRIGLYCERIDES LEVEL 91 MG/DL (<150)
[2023-05-11 18:57] LABS: HEMOGLOBIN A1c 12.6 % (4.0-6.0)
== END ==
LOC: M LAB REF 16:59
PROVIDERS: ATTEND Nurse Practitioner Family
DX: E11.9 Type 2 diabetes mellitus without complications (principal); Z13.228 Encounter for screening for other metabolic disorders; E78.5 Hyperlipidemia, unspecified

== ENCOUNTER → 2023-06-02 | Outpatient (CLI) | payer OTHER | LOC: M WUC 08:45 | PROVIDERS: ATTEND Nurse Practitioner Family | DX: M51.36 Other intervertebral disc degeneration, lumbar region (principal); M43.06 Spondylolysis, lumbar region; M43.02 Spondylolysis, cervical region ==

== ENCOUNTER → 2024-07-03 | Outpatient (REF) | payer OTHER ==
[~2024-07-03] MED LIST changes: -OXYB5TAB10 PO; +OXYB5TAB14 PO
[2024-07-03 12:47] LABS: BASO % 0.5 % (0.0-1.0); EOS # 0.5 10^3/uL (0.0-0.5); EOS % 7.2 % (0.0-3.0); HEMATOCRIT 38.8 % (42.0-52.0); HEMOGLOBIN 13.5 g/dl (13.5-17.5); LYMPH # 1.4 10^3/uL (1.5-5.0); MEAN CORPUSCULAR HEMOGLOBIN 31.3 pg (27.0-33.0); MEAN CORPUSCULAR HGB CONC 34.8 g/dl (32.0-36.5); MEAN CORPUSCULAR VOLUME 89.8 fl (80.0-96.0); MONO # 0.8 10^3/uL (0.0-0.8); MONO % 10.3 % (2.0-8.0); NEUTROPHILS # 4.7 10^3/uL (1.5-8.5); NEUTROPHILS % 62.7 % (36.0-66.0); PLATELET COUNT, AUTOMATED 123 10^3/uL (150-450); RED BLOOD COUNT 4.32 10^6/uL (4.30-6.10); WHITE BLOOD COUNT 7.5 10^3/uL (4.0-10.0)
[2024-07-03 13:17] LABS: ALBUMIN 3.7 G/DL (3.2-5.2); ALKALINE PHOSPHATASE 181 U/L (46-116); ALT/SGPT 32 U/L (7.0-40); AST/SGOT 16 U/L (<34); BILIRUBIN,TOTAL 0.8 MG/DL (0.3-1.2); BLOOD UREA NITROGEN 14 MG/DL (9-23); CALCIUM LEVEL 9.5 MG/DL (8.5-10.1); CARBON DIOXIDE LEVEL 27 MMOL/L (20-31); CHLORIDE LEVEL 105 MMOL/L (98-107); CHOLESTEROL LEVEL 108 MG/DL (<200); CHOLESTEROL RISK RATIO 3.62 (<5); CREATININE FOR GFR 0.85 MG/DL (0.70-1.30); GLOMERULAR FILTRATION RATE > 60.0 (>56); GLUCOSE, FASTING 298 MG/DL (60-100); HDL CHOLESTEROL 29.8 MG/DL (>40); LDL CHOLESTEROL 51.4 MG/DL (<100); MAGNESIUM LEVEL 1.3 MG/DL (1.8-2.4); NON-HDL-C 78.2 MG/DL; POTASSIUM SERUM 4.2 MMOL/L (3.5-5.1); SODIUM LEVEL 136 MMOL/L (136-145); TOTAL PROTEIN 7.1 G/DL (5.7-8.2); TRIGLYCERIDES LEVEL 134 MG/DL (<150)
[2024-07-03 13:19] LABS: THYROID STIMULATING HORMONE 2.847 uIU/ML (0.55-4.78); TOTAL 25(OH) VITAMIN D 38.1 NG/ML (20.0-100.0)
[2024-07-03 14:22] LABS: HEMOGLOBIN A1c 11.8 % (4.0-6.0)
== END ==
LOC: M LAB REF 11:54
PROVIDERS: ATTEND Nurse Practitioner Family
DX: E66.3 Overweight (principal)

== ENCOUNTER → 2024-07-19 | Outpatient (CLI) | payer OTHER | LOC: M RAD 12:02 | PROVIDERS: ATTEND Nurse Practitioner Family | DX: M79.604 Pain in right leg (principal) ==

== ENCOUNTER → 2024-09-27 | Outpatient (REF) | payer OTHER ==
[2024-09-27 14:45] LABS: ALBUMIN 4.1 G/DL (3.2-5.2); ALKALINE PHOSPHATASE 146 U/L (40-129); ALT/SGPT 34 U/L (7.0-40); AST/SGOT 25 U/L (<34); BILIRUBIN,TOTAL 0.5 MG/DL (0.3-1.2); BLOOD UREA NITROGEN 14 MG/DL (9-23); CARBON DIOXIDE LEVEL 28 MMOL/L (20-31); CHLORIDE LEVEL 105 MMOL/L (98-107); CREATININE FOR GFR 1.06 MG/DL (0.70-1.30); GLOMERULAR FILTRATION RATE > 60.0 (>56); GLUCOSE, FASTING 103 MG/DL (60-100); POTASSIUM SERUM 4.4 MMOL/L (3.5-5.1); SODIUM LEVEL 144 MMOL/L (136-145)
[2024-09-27 15:39] LABS: HEMOGLOBIN A1c 5.9 % (4.0-6.0)
== END ==
LOC: M LAB REF 13:54
PROVIDERS: ATTEND Nurse Practitioner Family
DX: E11.9 Type 2 diabetes mellitus without complications (principal)

== ENCOUNTER → 2024-12-27 | Outpatient (CLI) | payer OTHER ==
[2024-12-27 09:19] LABS: BASO % 0.7 % (0.0-1.0); EOS # 0.5 10^3/uL (0.0-0.5); EOS % 12.7 % (0.0-3.0); HEMATOCRIT 41.1 % (42.0-52.0); HEMOGLOBIN 13.2 g/dl (13.5-17.5); LYMPH # 1.3 10^3/uL (1.5-5.0); LYMPH % 32.3 % (24.0-44.0); MEAN CORPUSCULAR HEMOGLOBIN 29.9 pg (27.0-33.0); MEAN CORPUSCULAR HGB CONC 32.1 g/dl (32.0-36.5); MONO # 0.5 10^3/uL (0.0-0.8); MONO % 12.5 % (2.0-8.0); NEUTROPHILS # 1.7 10^3/uL (1.5-8.5); NEUTROPHILS % 41.8 % (36.0-66.0); PLATELET COUNT, AUTOMATED 114 10^3/uL (150-450); RED BLOOD COUNT 4.42 10^6/uL (4.30-6.10); WHITE BLOOD COUNT 4.1 10^3/uL (4.0-10.0)
[2024-12-27 09:25] LABS: HEMOGLOBIN A1c 5.3 % (4.0-6.0)
[2024-12-27 09:37] LABS: ALBUMIN 3.6 G/DL (3.2-5.2); BILIRUBIN,TOTAL 0.5 MG/DL (0.3-1.2); CALCIUM LEVEL 8.9 MG/DL (8.5-10.1); CREATININE FOR GFR 1.17 MG/DL (0.70-1.30); GLOMERULAR FILTRATION RATE 72.3 (>56); POTASSIUM SERUM 4.7 MMOL/L (3.5-5.1)
== END ==
LOC: M LAB 08:09
PROVIDERS: ATTEND Nurse Practitioner Family
DX: R79.89 Other specified abnormal findings of blood chemistry (principal); E11.9 Type 2 diabetes mellitus without complications; D64.9 Anemia, unspecified

== ENCOUNTER → 2024-12-31 | Outpatient (REF) | payer OTHER | LOC: M LAB REF 17:45 | PROVIDERS: ATTEND Nurse Practitioner Family | DX: Z12.5 Encounter for screening for malignant neoplasm of prostate (principal) ==

== ENCOUNTER → 2025-01-16 | Outpatient (CLI) | payer OTHER ==
[~2025-01-16] MED LIST changes: -FLOM0.4C39 PO; +TAMS-18 PO
== END ==
LOC: M WUC 14:49
PROVIDERS: ATTEND Registered Nurse
DX: R50.9 Fever, unspecified (principal)

== ENCOUNTER 2025-07-23 11:16 | Observation (INO) | payer OTHER ==
[~2025-07-23] VITALS: Ht 172.7 cm; Wt 65.1 kg
[~2025-07-23 11:16] MED LIST changes: +LISI40TA10 PO; -LISI40TA4 PO
[2025-07-23 11:56] LABS: BASO # 0.1 10^3/uL (0.0-0.2); BASO % 0.7 % (0.0-1.0); EOS # 0.2 10^3/uL (0.0-0.5); EOS % 2.6 % (0.0-3.0); LYMPH # 1.3 10^3/uL (1.5-5.0); LYMPH % 17.0 % (24.0-44.0); MONO # 0.7 10^3/uL (0.0-0.8); MONO % 10.1 % (2.0-8.0); NEUTROPHILS # 5.1 10^3/uL (1.5-8.5); NEUTROPHILS % 69.3 % (36.0-66.0); PLATELET COUNT, AUTOMATED 141 10^3/uL (150-450)
[2025-07-23] MEDS: NS (Normal Saline) 0.9% 1,000 ML IV ONE ×2 (12:14→13:47)
[2025-07-23 12:15] LABS: VENOUS BASE EXCESS -2.3 (-2.0-2.0); VENOUS HCO3 23.6 MMOL/L (23.0-27.0); VENOUS O2 SATURATION 62.8 % (60.0-80.0); VENOUS PARTIAL PRESSURE CO2 45.0 mmHg (38.0-50.0); VENOUS PARTIAL PRESSURE O2 33.0 mmHg (30.0-50.0); VENOUS PH 7.338 UNITS (7.330-7.430); VENOUS STANDARD HCO3 21.7 MMOL/L; VENOUS TOTAL CO2 25.0 MMOL/L (24.0-28.0)
[2025-07-23 12:29] LABS: ACETONE/KETONE 0.35 MMOL/L (0.02-0.27)
[2025-07-23 12:45] LABS: ALT/SGPT 40.0 U/L (7.0-40); AST/SGOT 43.0 U/L (<34); CALCIUM LEVEL 7.3 MG/DL (8.5-10.1); CARBON DIOXIDE LEVEL 25.0 MMOL/L (20-31); CHLORIDE LEVEL 99.0 MMOL/L (98-107); CREATININE FOR GFR 1.19 MG/DL (0.70-1.30); GLOMERULAR FILTRATION RATE 70.4 (>56); POTASSIUM SERUM 5.6 MMOL/L (3.5-5.1); SODIUM LEVEL 131.0 MMOL/L (136-145)
[2025-07-23 13:03] LABS: ETHYL ALCOHOL (ETHANOL) 0.004 % (0.000-0.010); MAGNESIUM LEVEL 1.5 MG/DL (1.8-2.4)
[2025-07-23 13:19] LABS: APPEARANCE, URINE CLEAR (CLEAR); BACTERIA, URINE AUTO NEGATIVE (NEGATIVE); BILIRUBIN, URINE AUTO NEGATIVE (NEGATIVE); BLOOD, URINE BLOOD NEGATIVE (NEGATIVE); GLUCOSE, URINE (UA) AUTO 3+ mg/dL (NEGATIVE); KETONE, URINE AUTO NEGATIVE (NEGATIVE); LEUKOCYTE ESTERASE, URINE AUTO NEGATIVE (NEGATIVE); NITRITE, URINE AUTO NEGATIVE (NEGATIVE); PROTEIN, URINE AUTO NEGATIVE (NEGATIVE); RBC, URINE AUTO 1 /HPF (0-3); SPECIFIC GRAVITY URINE AUTO 1.030 (1.002-1.035); SQUAMOUS EPITHELIAL CELL UR AU 0 /HPF (0-6); UROBILINOGEN, URINE AUTO 0.2 mg/dL (0.0-2.0); WBC, URINE AUTO 1 /HPF (0-3)
[2025-07-23 13:34] LABS: AMPHETAMINES LEVEL URINE NEGATIVE (NEGATIVE); BARBITURATES URINE NEGATIVE (NEGATIVE)
[2025-07-23 13:35] LABS: BENZODIAZEPINES URINE NEGATIVE (NEGATIVE); CANNABINOIDS URINE NEGATIVE (NEGATIVE); METHADONE URINE NEGATIVE (NEGATIVE); OPIATES URINE NEGATIVE (NEGATIVE); PHENCYCLIDINE URINE NEGATIVE (NEGATIVE)
[2025-07-23 13:38] LABS: COCAINE METABOLITE URINE POSITIVE (NEGATIVE)
[2025-07-23] MEDS: MAG SULF 1GM/100ML (MAG RUN) 1 GM in IV 1 EA IV ONE (13:47)
[2025-07-23] MEDS: HumuLIN R (REGULAR) INSULIN (NovoLIN R) **100 U/ML** PER UNIT IV ONE (13:47)
[2025-07-23 14:01] LABS: OSMOLALITY SERUM 314.0 MOSM/KG (275-295)
[2025-07-23] MEDS ORDERED: SILD25TA2 PO (14:03)
[2025-07-23] MEDS ORDERED: ATOR80TA59 PO (14:03)
[2025-07-23] MEDS ORDERED: VENTAER INH (14:03)
[2025-07-23] MEDS ORDERED: METF-838 PO (14:03)
[2025-07-23] MEDS ORDERED: AMOX875T2 PO (14:03)
[2025-07-23] MEDS ORDERED: ACET1TAB55 PO (14:03)
[2025-07-23] MEDS ORDERED: FARX1TAB5 PO (14:03)
[2025-07-23] MEDS ORDERED: HOME MED LIST COMPLETE! XX SCH (14:30)
[2025-07-23] MEDS ORDERED: DEXTROSE 50% 50 ML SYRINGE IV PRN (17:25)
[2025-07-23] MEDS ORDERED: GLUCAGON INJ 1 MG VIAL SC PRN (17:25)
[2025-07-23] MEDS ORDERED: GLUCOSE 4 GM CHEW PO PRN (17:25)
[2025-07-23] MEDS ORDERED: ALBUTEROL 90 MCG/ACT 8 GM HFA INHALER INH PRN (17:30)
[2025-07-23 17:45] LABS: CALCIUM LEVEL 8.1 MG/DL (8.5-10.1); CARBON DIOXIDE LEVEL 26 MMOL/L (20-31); CHLORIDE LEVEL 104 MMOL/L (98-107); CREATININE FOR GFR 1.26 MG/DL (0.70-1.30); GLOMERULAR FILTRATION RATE 65.7 (>56); POTASSIUM SERUM 4.6 MMOL/L (3.5-5.1); SODIUM LEVEL 135 MMOL/L (136-145)
[2025-07-23 18:03] LABS: PHOSPHORUS LEVEL 2.8 MG/DL (2.5-4.9)
[2025-07-23 18:30] LABS: HIV 1&2 SCREEN NEGATIVE (NEGATIVE)
[2025-07-23] MEDS: NS (Normal Saline) 0.9% 1,000 ML IV SCH (18:39)
[2025-07-23] MEDS: INSULIN LISPRO (NovoLOG) PER UNIT SC SCH ×2 (18:39→21:14)
[2025-07-23 18:43] LABS: HEPATITIS C VIRUS ABY INDEX 8.25 INDEX (<0.8)
[2025-07-23] MEDS: MAG SULF 1GM/100ML (MAG RUN) 1 GM in IV 1 EA IV SCH (18:55)
[2025-07-23] MEDS: LanTUS (INSULIN GLARGINE INJ) 1 UNITS/0.01 ML SC SCH (21:13)
[2025-07-24] MEDS: ACETAMINOPHEN 325 MG TAB PO PRN (01:00)
[2025-07-24 02:22] VITALS: BP 117/72; TEMP 97.8; O2SAT 99
[2025-07-24] MEDS: BENZONATATE 100 MG CAPSULE PO PRN (02:39)
[2025-07-24 03:48] VITALS: BP 107/55; TEMP 96.9; O2SAT 97
[2025-07-24 05:48] LABS: BASO # 0.0 10^3/uL (0.0-0.2); BASO % 0.4 % (0.0-1.0); EOS # 0.3 10^3/uL (0.0-0.5); EOS % 4.7 % (0.0-3.0); LYMPH # 1.9 10^3/uL (1.5-5.0); LYMPH % 35.5 % (24.0-44.0); MONO # 0.5 10^3/uL (0.0-0.8); MONO % 9.7 % (2.0-8.0); NEUTROPHILS # 2.6 10^3/uL (1.5-8.5); NEUTROPHILS % 49.5 % (36.0-66.0); PLATELET COUNT, AUTOMATED 129 10^3/uL (150-450)
[2025-07-24 06:14] LABS: ALT/SGPT 30.0 U/L (7.0-40); AST/SGOT 23.0 U/L (<34); CALCIUM LEVEL 8.4 MG/DL (8.5-10.1); CARBON DIOXIDE LEVEL 25.0 MMOL/L (20-31); CHLORIDE LEVEL 106.0 MMOL/L (98-107); CREATININE FOR GFR 1.32 MG/DL (0.70-1.30); GLOMERULAR FILTRATION RATE 62.1 (>56); MAGNESIUM LEVEL 1.8 MG/DL (1.8-2.4); POTASSIUM SERUM 4.3 MMOL/L (3.5-5.1); SODIUM LEVEL 139.0 MMOL/L (136-145)
[2025-07-24 08:00] VITALS: BP 124/81; TEMP 98.1; O2SAT 99
[2025-07-24] MEDS: ENOXAPARIN 40 MG/0.4 ML SYRINGE (J1650 PER 10MG) SC SCH (08:10)
[2025-07-24] MEDS: ATORVASTATIN 20 MG TAB PO SCH (08:10)
[2025-07-24] MEDS ORDERED: BLOO-259 MC (08:54)
[2025-07-24] MEDS ORDERED: FLAS1KIT2 MC (08:54)
[2025-07-24] MEDS ORDERED: BLOOKIT XX (08:58)
[2025-07-24] MEDS ORDERED: NORV5TAB PO (10:28)
[2025-07-24] MEDS: NS (Normal Saline) 0.9% 1,000 ML IV ONE (11:41)
[2025-07-24] MEDS: INSULIN LISPRO (NovoLOG) PER UNIT SC SCH (11:44)
[2025-07-24 12:00] VITALS: BP 101/59; TEMP 97.9; O2SAT 100
[2025-07-24 15:51] VITALS: BP 145/81; TEMP 98.7; O2SAT 99
[2025-07-24 20:23] VITALS: BP 153/83; TEMP 99.2; O2SAT 100
[2025-07-24] MEDS: LanTUS (INSULIN GLARGINE INJ) 1 UNITS/0.01 ML SC SCH (20:47)
[2025-07-25] VITALS: BP 133/75; TEMP 98.2; O2SAT 99
[2025-07-25 04:00] VITALS: BP 138/84; TEMP 98.2; O2SAT 99
[2025-07-25 05:51] LABS: BASO # 0.0 10^3/uL (0.0-0.2); BASO % 0.7 % (0.0-1.0); EOS # 0.2 10^3/uL (0.0-0.5); EOS % 4.6 % (0.0-3.0); LYMPH # 1.4 10^3/uL (1.5-5.0); LYMPH % 31.3 % (24.0-44.0); MONO # 0.6 10^3/uL (0.0-0.8); MONO % 13.1 % (2.0-8.0); NEUTROPHILS # 2.3 10^3/uL (1.5-8.5); NEUTROPHILS % 49.9 % (36.0-66.0); PLATELET COUNT, AUTOMATED 104 10^3/uL (150-450)
[2025-07-25 06:18] LABS: ALT/SGPT 33.0 U/L (7.0-40); AST/SGOT 34.0 U/L (<34); CALCIUM LEVEL 8.1 MG/DL (8.5-10.1); CARBON DIOXIDE LEVEL 26.0 MMOL/L (20-31); CHLORIDE LEVEL 109.0 MMOL/L (98-107); CREATININE FOR GFR 1.21 MG/DL (0.70-1.30); GLOMERULAR FILTRATION RATE 69.0 (>56); MAGNESIUM LEVEL 1.4 MG/DL (1.8-2.4); POTASSIUM SERUM 4.7 MMOL/L (3.5-5.1); SODIUM LEVEL 141.0 MMOL/L (136-145)
[2025-07-25 08:00] VITALS: BP 136/89; TEMP 97.5; O2SAT 98
[2025-07-25] MEDS: MAG SULF 1GM/100ML (MAG RUN) 1 GM in IV 1 EA IV SCH (09:18)
[2025-07-25] MEDS: INSULIN LISPRO (NovoLOG) PER UNIT SC SCH (09:20)
[2025-07-25] MEDS ORDERED: LISI20TA33 PO (10:48)
[2025-07-25 12:00] VITALS: BP 149/88; TEMP 98.5; O2SAT 98
[2025-07-25] MEDS: MAGNESIUM OXIDE 400 MG TAB PO ONE (12:42)
[2025-07-25] MEDS ORDERED: LANTINJ4 SC (13:20)
[2025-07-25] MEDS ORDERED: METF-838 PO (13:20)
[2025-07-25] MEDS ORDERED: JANU100T PO (13:20)
[2025-07-25] MEDS ORDERED: PIOG1TAB36 PO (13:20)
[2025-07-25] MEDS ORDERED: MAGN200T10 PO (13:44)
[2025-07-25] MEDS ORDERED: GLOB31MI SC (15:06)
[2025-07-25] MEDS ORDERED: INSULIN LISPRO (NovoLOG) PER UNIT SC SCH (21:00)
[2025-07-27 00:47] LABS: HCV RNA QUANTITATION <15 NOT DETECTED IU/mL (NOT DETECTED); HCV RNA log10 <1.18 NOT DETECTED Log IU/mL (NOT DETECTED)
== END 2025-07-25 15:50 | disposition home or self-care (01) ==
LOC: M ED 11:16 → M ED INP 15:52 → M PCU 07-24 02:18 → M MS4PR 07-24 15:42
PROVIDERS: ADMIT Internal Medicine; ATTEND Internal Medicine
DX: E11.00 Type 2 diabetes mellitus with hyperosmolarity without nonketotic hyperglycemic-hyperosmolar coma (NKHHC) (principal); I95.9 Hypotension, unspecified; E87.5 Hyperkalemia; E83.42 Hypomagnesemia; R94.4 Abnormal results of kidney function studies; R74.8 Abnormal levels of other serum enzymes; R74.01 Elevation of levels of liver transaminase levels; D69.6 Thrombocytopenia, unspecified; R05.9 Cough, unspecified; Z79.84 Long term (current) use of oral hypoglycemic drugs; Z79.899 Other long term (current) drug therapy
CPT/HCPCS: 36415; 71045; 76775; 80047; 80048; 80053; 80074; 80076; 80307; 81001; 82010; 82077; 82550; 82803; 83036; 83605; 83735; 83930; 84100; 84145; 84550; 84999; 85025; 87040; 87086; 87389; 87486; 87522; 87581; 87633; 87798; 93005; 96361; 96372; 96374; 96375; 96376; 99285; J1650; J1815; J3475

== ENCOUNTER → 2025-07-29 | Outpatient (CLI) | payer OTHER ==
[~2025-07-29] MED LIST changes: +AMOX875T2 PO; +ATOR80TA59 PO; +BLOO-259 MC; +BLOOKIT XX; +FARX1TAB5 PO; +FLAS1KIT2 MC; +GLOB31MI SC; +JANU100T PO; +LANTINJ4 SC; +LISI20TA33 PO; +MAGN200T10 PO; +METF-838 PO; +NORV5TAB PO; +PIOG1TAB36 PO; +SILD25TA2 PO; +VENTAER INH
[2025-07-29 10:41] LABS: CALCIUM LEVEL 9.1 MG/DL (8.5-10.1); CARBON DIOXIDE LEVEL 28.0 MMOL/L (20-31); CHLORIDE LEVEL 103.0 MMOL/L (98-107); CREATININE FOR GFR 1.0 MG/DL (0.70-1.30); GLOMERULAR FILTRATION RATE 86.7 (>56); MAGNESIUM LEVEL 1.5 MG/DL (1.8-2.4); POTASSIUM SERUM 4.6 MMOL/L (3.5-5.1); SODIUM LEVEL 138.0 MMOL/L (136-145)
== END ==
LOC: M LAB 09:09
PROVIDERS: ATTEND Student in an Organized Health Care Education/Training Program
DX: E83.42 Hypomagnesemia (principal); R94.4 Abnormal results of kidney function studies

== ENCOUNTER → 2025-09-03 | Outpatient (REF) | payer OTHER ==
[2025-09-03 17:08] LABS: BASO # 0.0 10^3/uL (0.0-0.2); BASO % 0.6 % (0.0-1.0); EOS # 0.3 10^3/uL (0.0-0.5); EOS % 5.5 % (0.0-3.0); LYMPH # 1.6 10^3/uL (1.5-5.0); LYMPH % 29.4 % (24.0-44.0); MONO # 0.7 10^3/uL (0.0-0.8); MONO % 12.3 % (2.0-8.0); NEUTROPHILS # 2.7 10^3/uL (1.5-8.5); NEUTROPHILS % 52.0 % (36.0-66.0); PLATELET COUNT, AUTOMATED 175 10^3/uL (150-450)
[2025-09-03 17:33] LABS: ALT/SGPT 25.0 U/L (7.0-40); AST/SGOT 20.0 U/L (<34); CALCIUM LEVEL 9.2 MG/DL (8.5-10.1); CARBON DIOXIDE LEVEL 29.0 MMOL/L (20-31); CHLORIDE LEVEL 107.0 MMOL/L (98-107); CHOLESTEROL LEVEL 197.0 MG/DL (<200); CHOLESTEROL RISK RATIO 4.71 (<5); CREATININE FOR GFR 1.17 MG/DL (0.70-1.30); GLOMERULAR FILTRATION RATE 71.8 (>56); IRON (FE) 54.0 UG/DL (65-175); LDL CHOLESTEROL 114.0 MG/DL (<100); MAGNESIUM LEVEL 1.6 MG/DL (1.8-2.4); NON-HDL-C 155.2 MG/DL; POTASSIUM SERUM 4.5 MMOL/L (3.5-5.1); SODIUM LEVEL 142.0 MMOL/L (136-145); TRIGLYCERIDES LEVEL 206.0 MG/DL (<150)
[2025-09-03 17:36] LABS: VITAMIN B12 LEVEL 418.0 PG/ML (211-911)
[2025-09-03 17:42] LABS: ESTIMATED AVERAGE GLUCOSE 240.0 MG/DL (60-110)
== END ==
LOC: M LAB REF 16:15
PROVIDERS: ATTEND Student in an Organized Health Care Education/Training Program
DX: E11.9 Type 2 diabetes mellitus without complications (principal); E83.42 Hypomagnesemia; Z68.23 Body mass index [BMI] 23.0-23.9, adult; D64.9 Anemia, unspecified